=== PATIENT | male | born 1955 | race Caucasian/White ===

== ENCOUNTER 2019-12-15 14:16 | Emergency (ER) | payer BC ==
[2019-12-15] MEDS ORDERED: LIDOCAINE 1% MPF 5 ML VIAL ONE (14:39)
[2019-12-15] MEDS ORDERED: NA CHLORIDE 0.9% 1,000 ML ONE (14:39)
[2019-12-15] MEDS ORDERED: CEFAZOLIN/SWI 1gm 1 GM/10 ML SYR ONE ×2 (14:40→16:14)
[2019-12-15] MEDS ORDERED: TETANUS & DIPHTHERIA TOX,ADULT 0.5 ML VIAL ONE (14:40)
[2019-12-15 14:48] LABS: Absolute Lymphocytes (CBC) 1.7 K/uL (0.7-4.9); Basophils % 0.4 % (0-1.3); Hematocrit 41.6 % (39.6-49.0); Lymphocytes % 24.1 % (15.3-44.8); MPV 9.3 fL (7.6-11.3); RBC Red Blood Cell Count 4.66 M/uL (4.33-5.43)
--- NOTE | 2019-12-15 14:51 | RAD REPORT ---
EXAM DESCRIPTION: RAD - Hand Left 3 View - 12/15/2019 2:33 pm CLINICAL HISTORY: DEFORMITY COMPARISON: No comparisons FINDINGS: Large lacerations are seen involving the second and third fingers. Fracture involves the d istal aspect of the proximal phalanx of the third finger with subluxation at the PIP joint. Comminute d fracture involves the middle and distal phalanx of the fourth finger.
[2019-12-15] MEDS ORDERED: FENTANYL CITR 100 MCG/2 ML ONE (14:54)
[2019-12-15] MEDS ORDERED: ONDANSETRON 4 MG/2 ML VIAL ONE (14:54)
[2019-12-15 14:59] LABS: Potassium 3.5 mmol/L (3.5-5.1)
[2019-12-15] MEDS ORDERED: LIDOCAINE 1% 20 ML MDV ONE (15:30)
--- NOTE | 2019-12-15 15:36 | EDPHYS ---
Physician Documentation [facility] Name: Lynnette Elder Age: 64 yrs Sex: Male : 1955 Arrival Date: 12/15/2019 Time: 14:18 Bed 14 Private MD: ED Physician Thien Adams HPI: 12/14 14:44 This 64 yrs old Male presents to ER via Ambulatory with complaints of saw maricel injury to left hand, fingers. 14:44 The patient or guardian reports decreased range of motion, injury, a laceration, maricel irregular, complex, ragged, pain. The complaints affect the left hand diffusely. Context: The problem was sustained at home, resulted from saw injury, thumb, 3rd and forth fingers . complex, open. Onset: The symptoms/episode began/occurred just prior to arrival. Associated signs and symptoms: The patient has no apparent associated signs or symptoms. Severity of symptoms: At their worst the symptoms were moderate, in the emergency department the symptoms are unchanged. The patient has not experienced similar symptoms in the past. Historical: - Allergies: 14:26 No Known Allergies; ca1 - Home Meds: 14:26 aspirin 81 mg Oral chew 1 tab once daily [Active]; ca1 - PMHx: 14:26 Hyperlipidemia; High Cholesterol; ca1 - Immunization history:: Adult Immunizations up to date, Last tetanus immunization: up to date Flu vaccine is up to date. - Social history:: Smoking status: Patient denies any tobacco usage or history of. - Family history:: not pertinent. ROS: 14:44 Constitutional: Negative for fever, chills, and weight loss, Eyes: Negative for injury, maricel pain, redness, and discharge, ENT: Negative for injury, pain, and discharge, Neck: Negative for injury, pain, and swelling, Cardiovascular: Negative for chest pain, palpitations, and edema, Respiratory: Negative for shortness of breath, cough, wheezing, and pleuritic chest pain, Abdomen/GI: Negative for abdominal pain, nausea, vomiting, diarrhea, and constipation, Back: Negative for injury and pain, : Negative for injury, bleeding, discharge, and swelling, Skin: Negative for injury, rash, and discoloration, Neuro: Negative for headache, weakness, numbness, tingling, and seizure, Psych: Negative for depression, anxiety, suicide ideation, homicidal ideation, and hallucinations, Allergy/Immunology: Negative for hives, rash, and allergies, Endocrine: Negative for neck swelling, polydipsia, polyuria, polyphagia, and marked weight changes, Hematologic/Lymphatic: Negative for swollen nodes, abnormal bleeding, and unusual bruising. 14:44 MS/extremity: Positive for injury or acute deformity, decreased range of motion, laceration, pain, swelling, tenderness, of the dorsal aspect of distal phalanx of left thumb, dorsal aspect of middle phalanx of left middle finger, dorsal aspect of middle phalanx of left ring finger, dorsal aspect of proximal phalanx of left ring finger, palmar aspect of middle phalanx of left ring finger and palmar aspect of middle phalanx of left middle finger. Exam: 14:44 Constitutional: This is a well developed, well nourished patient who is awake, alert, maricel and in no acute distress. Head/Face: Normocephalic, atraumatic. Eyes: Pupils equal round and reactive to light, extra-ocular motions intact. Lids and lashes normal. Conjunctiva and sclera are non-icteric and not injected. Cornea within normal limits. Periorbital areas with no swelling, redness, or edema. ENT: Nares patent. No nasal discharge, no septal abnormalities noted. Tympanic membranes are normal and external auditory canals are clear. Oropharynx with no redness, swelling, or masses, exudates, or evidence of obstruction, uvula midline. Mucous membranes moist. Neck: Trachea midline, no thyromegaly or masses palpated, and no cervical lymphadenopathy. Supple, full range of motion without nuchal rigidity, or vertebral point tenderness. No Meningismus. Chest/axilla: Normal chest wall appearance and motion. Nontender with no deformity. No lesions are appreciated. Cardiovascular: Regular rate and rhythm with a normal S1 and S2. No gallops, murmurs, or rubs. Normal PMI, no JVD. No pulse deficits. Respiratory: Lungs have equal breath sounds bilaterally, clear to auscultation and percussion. No rales, rhonchi or wheezes noted. No increased work of breathing, no retractions or nasal flaring. Abdomen/GI: Soft, non-tender, with normal bowel sounds. No distension or tympany. No guarding or rebound. No evidence of tenderness throughout. Vital Signs: 14:23 BP 143 / 85; Pulse 91; Resp 16 S; Pulse Ox 95% on R/A; Weight 83.91 kg (R); Height 5 ca1 ft. 6 in. (167.64 cm) (R); Pain 8/10; 14:40 BP 149 / 85; Pulse 91; Resp 18; Temp 98.5; Pulse Ox 95% on R/A; Pain 5/10; em 15:40 BP 147 / 82; Pulse 84; Resp 18; Pulse Ox 99% on R/A; Pain 3/10; em 14:23 Body Mass Index 29.86 (83.91 kg, 167.64 cm) ca1 [place] Coma Score: 14:40 Eye Response: spontaneous(4). Verbal Response: oriented(5). Motor Response: obeys ss commands(6). Total: 15. 15:40 Eye Response: spontaneous(4). Verbal Response: oriented(5). Motor Response: obeys ss commands(6). Total: 15. Trauma Score (Adult): 14:40 Eye Response: spontaneous(1); Verbal Response: oriented(1); Motor Response: obeys ss commands(2); Systolic BP: > 89 mm Hg(4); Respiratory Rate: 10 to 29 per min(4); Jolie Score: 15; Trauma Score: 12 15:40 Eye Response: spontaneous(1); Verbal Response: oriented(1); Motor Response: obeys ss commands(2); Systolic BP: > 89 mm Hg(4); Respiratory Rate: 10 to 29 per min(4); Jolie Score: 15; Trauma Score: 12 Procedures: 16:08 Nerve block: (digital) of dorsal aspect of proximal phalanx of left thumb, dorsal maricel aspect of proximal phalanx of left middle finger, dorsal aspect of proximal phalanx of left ring finger, palmar aspect of proximal phalanx of left ring finger, palmar aspect of proximal phalanx of left middle finger and palmar aspect of proximal phalanx of left thumb Medication: Lidocaine 1% without epinephrine Marcaine 0.5%, Amount: 6 mls were injected, Effect: the patient's symptoms are improved, markedly, Set up for procedure. Performed by Thien Adams MD Patient tolerated well. MDM: 14:29 Patient medically screened. [facility] [place] 14:50 Data reviewed: vital signs, nurses notes, lab test result(s), radiologic studies, plain maricel films. 03 14:23 Order name: Basic Metabolic Panel; Complete Time: 15:15 em 12/14 14:23 Order name: CBC with Diff; Complete Time: 15:15 em 12/14 14:19 Order name: XRAY Hand LEFT 3 View; Complete Time: 15:15 em 12/14 14:23 Order name: Creatinine for Radiology; Complete Time: 15:15 em 12/14 14:23 Order name: Type And Screen em 12/14 15:46 Order name: ABO/RH no charge EDNE 12/14 14:23 Order name: Labs collected and sent; Complete Time: 15:04 em 12/14 14:43 Order name: Suture Tray at Bedside; Complete Time: 15:26 [facility] [place] 12/14 14:56 Order name: Labs - recollect needed: collect abo/rh no charge; Complete Time: 15:12 bd Administered Medications: 14:41 Drug: NS 0.9% 1000 ml Route: IV; Rate: 1 bolus; Site: right antecubital; em 16:20 Follow up: IV Status: Completed infusion; IV Intake: 1000ml em 14:41 Drug: Tetanus-Diphtheria Toxoid Adult 0.5 ml {[employer]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 Exp: em 09/12/2021. Lot #: [id number]. } Route: IM; Site: left deltoid; 15:00 Follow up: Response: No adverse reaction em 14:43 Drug: Ancef 2 grams Route: IVPB; Infused Over: 30 mins; Site: right antecubital; em 15:00 Follow up: Response: No adverse reaction; IV Status: Completed infusion; IV Intake: 20mlem 15:19 Drug: Zofran (Ondansetron) 4 mg Route: IVP; Site: right antecubital; em 15:45 Follow up: Response: No adverse reaction em 15:21 Drug: fentaNYL (PF) 50 mcg Route: IVP; Site: right antecubital; em 15:45 Follow up: Response: No adverse reaction; Marked relief of symptoms; Pain is decreased; em RASS: Alert and Calm (0) 15:29 Drug: Lidocaine (1 %) 20 ml {Note: administered by Dr. Adams.} Volume: 20 ml; Route: em Infiltration; Site: wound; 15:45 Follow up: Response: No adverse reaction; Pain is decreased em 15:29 Drug: Bupivacaine (0.5 %) 20 ml {Note: administered by Dr. Adams.} Volume: 10 ml; em Route: Infiltration; Site: wound; Disposition: 12/15/19 15:35 Transfer ordered to [facility]. Diagnosis are Displaced fracture of medial phalanx of left ring finger, Displaced fracture of distal phalanx of left ring finger, Displaced fracture of medial phalanx of left middle finger, Laceration without foreign body of left hand - thumb, volar. - Reason for transfer: Higher level of care. - Accepting physician is mary aleman. - Condition is Stable. - Problem is new. - Symptoms have improved. Signatures: Dispatcher [employer] Xochitl Blanco Corey, MD MD cha Munoz, Edgar, RN RN em Lois Rosas RN RN [facility] Corrections: (The following items were deleted from the chart) 16:42 15:35 12/15/2019 15:35 Transfer ordered to [facility]. Diagnosis is em Displaced fracture of medial phalanx of left ring finger; Displaced fracture of distal phalanx of left ring finger; Displaced fracture of medial phalanx of left middle finger; Laceration without foreign body of left hand - thumb, volar. Reason for transfer: Higher level of care. Accepting physician is mary aleman. Condition is Stable. Problem is new. Symptoms have improved. [facility] [place] 16:45 16:42 12/15/2019 15:35 Transfer ordered to [facility]. Diagnosis is em Displaced fracture of medial phalanx of left ring finger; Displaced fracture of distal phalanx of left ring finger; Displaced fracture of medial phalanx of left middle finger; Laceration without foreign body of left hand - thumb, volar. Reason for transfer: Higher level of care. Accepting physician is mary aleman. Condition is Stable. Problem is new. Symptoms have improved. em
--- NOTE | 2019-12-15 15:36 | ER ---
Nurse's Notes [facility] Name: Lynnette Lester Age: 64 yrs Sex: Male : 1955 Arrival Date: 12/15/2019 Time: 14:18 Bed 14 Private MD: Diagnosis: Displaced fracture of medial phalanx of left ring finger;Displaced fracture of distal phalanx of left ring finger;Displaced fracture of medial phalanx of left middle finger;Laceration without foreign body of left hand-thumb, volar Presentation: 12/14 14:23 Chief complaint: Patient states: Lacerations on 3 fingers of L hand, bones exposed from ca1 1-2 fingers. Lac was caused by table saw. Coronavirus screen: The patient has NOT traveled to [place] in the past 14 days. The patient has NOT had contact with known and/or suspected case of Coronavirus. Ebola Screen: Patient negative for fever greater than or equal to 101.5 degrees Fahrenheit, and additional compatible Ebola Virus Disease symptoms Patient denies exposure to infectious person. Patient denies travel to an Ebola-affected area in the 21 days before illness onset. No symptoms or risks identified at this time. Initial Sepsis Screen: Does the patient meet any 2 criteria? No. Patient's initial sepsis screen is negative. Does the patient have a suspected source of infection? No. Patient's initial sepsis screen is negative. Risk Assessment: Do you want to hurt yourself or someone else? Patient reports no desire to harm self or others. Onset of symptoms was December 15, 2019. Care prior to arrival: None. 14:23 Method Of Arrival: Ambulatory ca1 14:23 Acuity: JUVENAL 2 ca1 14:23 Mechanism of Injury: Table saw. Trauma event details: Injury occurred in the [facility], Injury occurred: at home. Injury occurred: December 15, 2019. Trauma Activation: Alert Physician: ED Physician; Name: ; Notified At: ; Arrived At: Physician: General Surgeon; Name: ; Notified At: ; Arrived At: Physician: Radiology; Name: ; Notified At: ; Arrived At: Physician: Respiratory; Name: ; Notified At: ; Arrived At: Physician: Lab; Name: ; Notified At: ; Arrived At: Historical: - Allergies: 14:26 No Known Allergies; ca1 - Home Meds: 14:26 aspirin 81 mg Oral chew 1 tab once daily [Active]; ca1 - PMHx: 14:26 Hyperlipidemia; High Cholesterol; ca1 - Immunization history:: Adult Immunizations up to date, Last tetanus immunization: up to date Flu vaccine is up to date. - Social history:: Smoking status: Patient denies any tobacco usage or history of. - Family history:: not pertinent. Screenin:25 Abuse screen: Denies threats or abuse. Nutritional screening: No deficits noted. em Tuberculosis screening: No symptoms or risk factors identified. Fall Risk None identified. Primary Survey: 14:23 NO uncontrolled hemorrhage observed. A: The patient is alert. Airway: patent, No ss supplemental oxygen in use on arrival. Oral cavity: clear, Trachea midline. Breathing/Chest: Respiratory pattern: regular, Respiratory effort: spontaneous, unlabored, Breath sounds: clear, bilaterally. Chest inspection: symmetrical rise and fall of the chest. Circulation: Pulses: palpable right radial artery, right posterior tibial artery, left radial artery and left posterior tibial artery. Skin color: pink, Skin temperature: warm. Disability Alert. Exposure/Environment: All clothing and personal items were removed. Forensic evidence collection is not deemed to be indicated at this time. Items placed in patient belonging bag. There is no evidence of uncontrolled external bleeding. Obvious injury(ies) are noted at this time: lacerations noted to fingers of R hand. 15:00 Reassessment Airway Airway Patent Oxygen No O2 Oral cavity Clear Trachea Midline ss Breathing/Chest Respiratory pattern Regular Respiratory effort Spontaneous Unlabored Breath sounds Clear Chest inspection Symmetrical Circulation Pulses Palpable Color [place] Temperature Warm Disability Alert. Secondary Survey: 14:23 HEENT: No deficits noted. Head No injury/deformity Face No injury/deformity Eyes: No ss injury or deformity noted. Ears: clear bilaterally. Nose: clear Throat: is clear. Gastrointestinal: No deficits noted. : No deficits noted. Assessment: 14:23 General: Appears uncomfortable, Behavior is calm, cooperative, Denies feeling ill. ss Pain: Complains of pain in palmar aspect of proximal phalanx of left thumb and palmar aspect of proximal phalanx of left middle finger and palmar aspect of proximal phalanx of left ring finger and dorsal aspect of proximal phalanx of left middle finger and dorsal aspect of proximal phalanx of left thumb and palmar aspect of middle phalanx of left ring finger and dorsal aspect of proximal phalanx of left ring finger and dorsal aspect of middle phalanx of left ring finger and dorsal aspect of middle phalanx of left middle finger and dorsal aspect of distal phalanx of left thumb Pain currently is 8 out of 10 on a pain scale. Quality of pain is described as tender, throbbing, Pain began suddenly, Is continuous. Neuro: Level of Consciousness is awake, alert, obeys commands, Oriented to person, place, time, situation. EENT: Oral mucosa is moist. Respiratory: Airway is patent Respiratory effort is even, unlabored, Respiratory pattern is regular, symmetrical, Denies cough, shortness of breath. : No signs and/or symptoms were reported regarding the genitourinary system. Derm: Skin is intact, is healthy with good turgor, Skin is dry, Skin is pink, warm \T\ dry. normal. Injury Description: Deformity sustained to dorsal aspect of middle phalanx of left middle finger, dorsal aspect of middle phalanx of left ring finger and palmar aspect of distal phalanx of left thumb is with bone exposed, was sustained less than 30 minutes ago. 14:25 General: Appears in no apparent distress. uncomfortable, Behavior is calm, cooperative. em Pain: Complains of pain in dorsal aspect of distal phalanx of left thumb, dorsal aspect of proximal phalanx of left thumb, dorsal aspect of middle phalanx of left middle finger and dorsal aspect of middle phalanx of left ring finger Pain currently is 8 out of 10 on a pain scale. Pain began suddenly. Neuro: Level of Consciousness is awake, alert, obeys commands, Oriented to person, place, time, situation, Appropriate for age. Cardiovascular: Capillary refill < 3 seconds Patient's skin is warm and dry. Respiratory: Airway is patent Respiratory effort is even, unlabored, Respiratory pattern is regular, symmetrical. GI: Patient currently denies nausea. Derm: Skin is intact, is healthy with good turgor, Skin is pink, warm \T\ dry. Musculoskeletal: Swelling present in left hand. Injury Description: Deformity sustained to dorsal aspect of middle phalanx of left middle finger, dorsal aspect of proximal phalanx of left middle finger, dorsal aspect of middle phalanx of left ring finger and dorsal aspect of proximal phalanx of left ring finger is with bone exposed, was sustained less than 30 minutes ago. 15:30 Reassessment: Patient appears in no apparent distress at this time. Patient and/or em family updated on plan of care and expected duration. Pain level reassessed. Patient is alert, oriented x 3, equal unlabored respirations, skin warm/dry/pink. rates pain 3/10 Patient states feeling better. 15:52 Reassessment: report given to ROAS Hinson at [facility], pending EMS transportation. em 16:24 Reassessment: Patient appears in no apparent distress at this time. Patient and/or em family updated on plan of care and expected duration. Pain level reassessed. Patient is alert, oriented x 3, equal unlabored respirations, skin warm/dry/pink. report given to EMS. Vital Signs: 14:23 BP 143 / 85; Pulse 91; Resp 16 S; Pulse Ox 95% on R/A; Weight 83.91 kg (R); Height 5 ca1 ft. 6 in. (167.64 cm) (R); Pain 8/10; 14:40 BP 149 / 85; Pulse 91; Resp 18; Temp 98.5; Pulse Ox 95% on R/A; Pain 5/10; em 15:40 BP 147 / 82; Pulse 84; Resp 18; Pulse Ox 99% on R/A; Pain 3/10; em 14:23 Body Mass Index 29.86 (83.91 kg, 167.64 cm) ca1 Jolie Coma Score: 14:40 Eye Response: spontaneous(4). Verbal Response: oriented(5). Motor Response: obeys ss commands(6). Total: 15. 15:40 Eye Response: spontaneous(4). Verbal Response: oriented(5). Motor Response: obeys ss commands(6). Total: 15. Trauma Score (Adult): 14:40 Eye Response: spontaneous(1); Verbal Response: oriented(1); Motor Response: obeys ss commands(2); Systolic BP: > 89 mm Hg(4); Respiratory Rate: 10 to 29 per min(4); Cecil Score: 15; Trauma Score: 12 15:40 Eye Response: spontaneous(1); Verbal Response: oriented(1); Motor Response: obeys ss commands(2); Systolic BP: > 89 mm Hg(4); Respiratory Rate: 10 to 29 per min(4); Cecil Score: 15; Trauma Score: 12 ED Course: 14:18 Patient arrived in ED. em 14:22 Thien Adams MD is Attending Physician. ss 14:23 Roby Martinez, RN is Primary Nurse. em 14:25 Patient has correct armband on for positive identification. Placed in gown. Bed in low em position. Call light in reach. Side rails up X2. Adult w/ patient. Pulse ox on. NIBP on. 14:25 Patient maintains SpO2 saturation greater than 95% on room air. em 14:25 Thermoregulation: warm blanket given to patient. em 14:26 Triage completed. ca1 14:26 Arm band placed on right wrist. Affected limb elevated. ca1 14:27 Inserted saline lock: 20 gauge in right antecubital area, using aseptic technique. ca1 Blood collected. 14:36 XRAY Hand LEFT 3 View In Process Unspecified. EDMS 16:25 No provider procedures requiring assistance completed. Patient transferred, IV remains ss in place. 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 Exp: em 09/12/2021. Lot #: [id number]. } Route: IM; Site: left deltoid; 15:00 Follow up: Response: No adverse reaction em 14:43 Drug: Ancef 2 grams Route: IVPB; Infused Over: 30 mins; Site: right antecubital; em 15:00 Follow up: Response: No adverse reaction; IV Status: Completed infusion; IV Intake: 20mlem 15:19 Drug: Zofran (Ondansetron) 4 mg Route: IVP; Site: right antecubital; em 15:45 Follow up: Response: No adverse reaction em 15:21 Drug: fentaNYL (PF) 50 mcg Route: IVP; Site: right antecubital; em 15:45 Follow up: Response: No adverse reaction; Marked relief of symptoms; Pain is decreased; em RASS: Alert and Calm (0) 15:29 Drug: Lidocaine (1 %) 20 ml {Note: administered by Dr. Adams.} Volume: 20 ml; Route: em Infiltration; Site: wound; 15:45 Follow up: Response: No adverse reaction; Pain is decreased em 15:29 Drug: Bupivacaine (0.5 %) 20 ml {Note: administered by Dr. Adams.} Volume: 10 ml; em Route: Infiltration; Site: wound; Intake: 15:00 IV: 20ml; Total: 20ml. em 16:20 IV: 1000ml; Total: 1020ml. em Output: 16:20 Urine: 200ml (Voided); Total: 200ml. em Outcome: 15:35 ER care complete, transfer ordered by . maricel 16:39 Transferred by ground EMS to [facility], Transfer form completed. X-rays sent em w/ patient. 16:39 Condition: good 16:39 Instructed on the need for transfer, Demonstrated understanding of instructions. 16:41 Patient's length of stay in the Emergency Department was greater than 2 hours. transfer em Patient's length of stay extended due to 16:45 Patient left the ED. em Signatures: Dispatcher [employer] Thien Lopez MD MD cha Munoz, Edgar, RN RN Adela Bland RN RN Lois Rosas RN RN ca1 Corrections: (The following items were deleted from the chart) 14:27 14:23 Chief complaint: Patient states: Lacerations on 3 fingers, bones exposed from 1-2 ca1 fingers. Lac was caused by table saw. ca1
[2019-12-15 17:15] VITALS: TEMP 98.5
[2019-12-15 17:17] VITALS: BP 147/82; O2SAT 99
== END 2019-12-15 16:45 | disposition short-term general hospital (02) ==
LOC: ER 14:16
DX: S62.625A Displaced fracture of middle phalanx of left ring finger, initial encounter for closed fracture (principal); S62.623A Displaced fracture of middle phalanx of left middle finger, initial encounter for closed fracture; S62.635A Displaced fracture of distal phalanx of left ring finger, initial encounter for closed fracture; S61.012A Laceration without foreign body of left thumb without damage to nail, initial encounter; W29.8XXA Contact with other powered hand tools and household machinery, initial encounter; Y93.89 Activity, other specified; Y92.009 Unspecified place in unspecified non-institutional (private) residence as the place of occurrence of the external cause; Z23 Encounter for immunization
CPT/HCPCS: 96365; 96361; 85025; 80048; 36415; 86900; 86850; 86901; 73130; 90471; 90714; 64450; 96375; 99285; J3010; J0690 ×2; J7030; J2405

== ENCOUNTER 2021-07-28 22:10 | Inpatient (IN) | payer OTHER, BC ==
[2021-07-29] MEDS ORDERED: HYDROCODONE/APAP 10/325 TAB ONE ×2 (00:07→01:13)
[2021-07-29] MEDS ORDERED: LIDOCAINE JELLY 2%- 5 ML TUBE ONE (00:07)
[2021-07-29] MEDS ORDERED: PIPERACIL/TAZO 3.375 GM VIAL IV ONE (01:12)
[2021-07-29] MEDS ORDERED: NA CHLORIDE 0.9% 250 ML ONE (01:13)
[2021-07-29 01:30] LABS: Protime INR 1.06
[2021-07-29 01:32] LABS: Absolute Lymphocytes (CBC) 0.6 K/uL (0.7-4.9); Basophils % 0.6 % (0-1.3); Hematocrit 32.5 % (39.6-49.0); MPV 8.9 fL (7.6-11.3); RBC Red Blood Cell Count 3.57 M/uL (4.33-5.43)
[2021-07-29 01:41] LABS: Urine Blood Trace-intact (Negative); Urine Glucose 2+ (Negative); Urine Protein Negative (Negative); Urine Specific Gravity >=1.030 (1.005-1.030); Urine pH 5.5 (5.0-7.0)
[2021-07-29 01:49] LABS: Urine Blood Negative (Negative); Urine Glucose 2+ (Negative); Urine Protein Negative (Negative); Urine Specific Gravity >=1.030 (1.005-1.030); Urine pH 5.5 (5.0-7.0)
[2021-07-29 01:55] LABS: Urine Bacteria <20 /HPF (NONE SEEN); Urine Mucus 2+ /HPF (NONE SEEN); Urine RBC NONE SEEN /HPF (NONE SEEN)
[2021-07-29 02:02] LABS: Blood Morphology Comment NOTED (NOT SEEN); Platelet Estimate DECR
[2021-07-29 02:03] LABS: Anisocytosis 1+
--- NOTE | 2021-07-29 02:38 | EDPHYS ---
Physician Documentation [facility] Name: Lynnette Elder Age: 66 yrs Sex: Male : 1955 Arrival Date: 07/28/2021 Time: 22:16 Bed 13 Private MD: ED Physician Pako Warren HPI: 07/28 23:10 This 66 yrs old Male presents to ER via Ambulatory with complaints of Rectal cp Abscess. 23:10 The patient presents to the emergency department with bleeding from the rectum/anus, cp pain in the rectal area, that is severe. 23:10 Onset: The symptoms/episode began/occurred 2 day(s) ago. cp 23:10 Associate signs and symptoms: Pertinent positives: lower GI bleeding, bright red, cp Pertinent negatives: abdominal pain, constipation, diarrhea, fever, vomiting. Historical: - Allergies: 22:39 No Known Allergies; sj1 - PMHx: 22:39 High Cholesterol; Hyperlipidemia; sj1 - Immunization history:: Adult Immunizations up to date, Client reports receiving the 2nd dose of the Covid vaccine, Client reports receiving the 1st dose of the Covid vaccine. - Social history:: Smoking status: Patient denies any tobacco usage or history of. Patient/guardian denies using street drugs. ROS: 23:15 Constitutional: Negative for body aches, chills, fever, poor PO intake. cp 23:15 Eyes: Negative for injury, pain, redness, and discharge. cp 23:15 ENT: Negative for ear pain, sore throat, difficulty swallowing, difficulty handling secretions. 23:15 Cardiovascular: Negative for chest pain, edema, palpitations. 23:15 Respiratory: Negative for cough, shortness of breath, wheezing. 23:15 Abdomen/GI: Positive for rectal pain, rectal bleeding, Negative for abdominal pain, nausea, vomiting, and diarrhea, black/tarry stool. 23:15 Back: Negative for pain at rest, pain with movement. 23:15 : Negative for urinary symptoms. 23:15 Neuro: Negative for altered mental status, dizziness, headache, weakness. 23:15 All other systems are negative. Exam: 23:20 Constitutional: The patient appears in no acute distress, alert, awake, cp non-diaphoretic, non-toxic, well developed, well nourished, uncomfortable. 23:20 Head/Face: Normocephalic, atraumatic. cp 23:20 Chest/axilla: Inspection: normal. 23:20 Cardiovascular: Rate: normal, Rhythm: regular, Edema: is not appreciated, JVD: is not appreciated. 23:20 Respiratory: the patient does not display signs of respiratory distress, Respirations: normal, no use of accessory muscles, no retractions, labored breathing, is not present, Breath sounds: are clear throughout, no decreased breath sounds, no stridor, no wheezing. 23:20 Abdomen/GI: Inspection: abdomen appears normal, Palpation: abdomen is soft and non-tender, in all quadrants, Rectal exam: swelling, that is mild, tenderness, that is severe, bloody drainage noted from outer rim of rectum at 3 o'clock. 23:20 Back: pain, is absent, ROM is normal. 23:20 : Rectal exam: 23:20 Neuro: Orientation: to person, place \T\ time. Mentation: is normal, Motor: moves all fours, strength is normal, Sensation: is normal. Vital Signs: 22:35 BP 175 / 95; Pulse 86; Resp 18 S; Temp 99.5; Pulse Ox 99% on R/A; Weight 85.28 kg (R); sj1 Height 5 ft. 6 in. (167.64 cm) (R); Pain 9/10; 22:35 Body Mass Index 30.34 (85.28 kg, 167.64 cm) sj1 MDM: 22:50 Patient medically screened. 07/29 00:00 Differential diagnosis: hemorrhoids, fissure, abscess, pilonidal cyst. cp 02:35 Data reviewed: vital signs, nurses notes, lab test result(s), radiologic studies, CT scan. 02:35 Physician consultation: Murtaza Romero MD was called at 02:35, was contacted at 02:35, regarding consult, patient's condition, would like admission per Dr. Les Maciel DO. 07/28 23:57 Order name: Basic Metabolic Panel 07/28 23:57 Order name: CBC with Diff; Complete Time: 02:25 07/29 01:42 Interpretation: Normal except: RBC 3.57; HGB 11.2; HCT 32.5; PLT 96; RDW 16.4; MERT% cp 84.3; LYM% 7.0; LYMA 0.6. 07/28 23:57 Order name: Hepatic Function cp 07/28 23:57 Order name: Lipase cp 07/29 00:17 Order name: Procalcitonin; Complete Time: 02:25 cp 07/29 00:17 Order name: Lactate; Complete Time: 01:41 cp 07/29 01:42 Interpretation: Within normal limits: LAC 0.9. cp 07/29 00:17 Order name: Blood Culture Adult (2) cp 07/29 00:17 Order name: PT-INR; Complete Time: 01:41 cp 07/29 00:17 Order name: Ptt, Activated; Complete Time: 01:41 cp 07/29 00:18 Order name: Urine Microscopic Only; Complete Time: 02:25 cp 07/29 00:18 Order name: Urine Culture cp 07/29 01:37 Order name: Manual Differential; Complete Time: 02:25 EDMS 07/29 01:40 Order name: Urine Dipstick-Ancillary; Complete Time: 01:41 EDMS 07/29 01:41 Interpretation: Normal except: UGLUC 2+; UBLD Trace-intact. cp 07/29 01:49 Order name: Urine Dipstick-Ancillary; Complete Time: 02:25 EDMS 07/28 23:57 Order name: IV Saline Lock; Complete Time: 03:12 cp 07/28 23:57 Order name: Labs collected and sent; Complete Time: 03:12 cp 07/29 00:04 Order name: CT Pelvis w cont cp 07/29 00:18 Order name: Urine Dipstick-Ancillary (obtain specimen); Complete Time: 03:12 cp 07/29 02:35 Order name: CREATININE WHOLE BLOOD EDMS 07/29 03:25 Order name: SARS-COV-2 RT PCR EDMS Administered Medications: 07/28 23:44 Drug: Lidocaine Gel 2 % 1 application Route: Mucous Membrane; mr2 23:44 Drug: HYDROcodone-acetaminophen 10 mg-325 mg 1 tabs Route: PO; mr2 07/29 05:05 Follow up: Response: No adverse reaction wg 01:16 Drug: Zosyn (piperacillin-tazobactam) 3.375 grams Route: IVPB; Infused Over: 60 mins; mr2 Site: left antecubital; 02:30 Drug: HYDROcodone-acetaminophen 10 mg-325 mg 1 tabs Route: PO; wg 03:30 Follow up: Response: No adverse reaction Disposition: 00:[address] Warren, exam consistent with perirectal abscess. Waiting on bloodwork rn and CT to confirm and to check blood counts, although anticipate ok given last chemo 3 weeks ago and do not anticipate neutropenia.. 05:05 Co-signature as Attending Physician, Pako Warren MD I agree with the assessment and rn plan of care. 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 HPI: 66-year-old male presents with rectal pain. Reports noticed swelling near the anus that is very painful and just prior to my evaluation states feels like it popped and is leaking. My personal exam of patient reveals: Patient with perianal/rectal swelling and focal tenderness with erythema and fluctuance that extends partially to crevice of buttocks. I agree with assessment and care plan and confirm the diagnosis (es) above. Disposition Summary: 07/29/21 02:37 Hospitalization Ordered Hospitalization Status: Inpatient Admission cp Provider: Les Maciel cp Condition: Stable cp Problem: new cp Symptoms: have improved cp Bed/Room Type: Standard cp Location: [facility] ER HOLD(07/29/21 03:40) cg Room Assignment: ERHOLD-(07/29/21 03:40) cg Diagnosis - Rectal abscess cp Forms: - Medication Reconciliation Form cp - SBAR form cp Signatures: Dispatcher [employer] EDPako Allen MD MD rn Attema, Lee, DOMO-C KING MAKER-Cla1 Thien Kumar PA PA cp Thuy Huff RN RN cg Flavio Donovan RN wg Reynard, Mike, RN RN mr2 Alee Guillory RN RN sj1 Corrections: (The following items were deleted from the chart) 03:25 03:02 CORONAVIRUS+MR.LAB.BRZ ordered. EDTX EDMS 03:40 02:37 Telemetry/MedSurg (Inpatient) cp cg 03:40 02:37 cp cg
--- NOTE | 2021-07-29 02:38 | ER ---
Nurse's Notes [facility] Name: Lynnette Lester Age: 66 yrs Sex: Male : 1955 Arrival Date: 07/28/2021 Time: 22:16 Bed 13 Private MD: Diagnosis: Rectal abscess Presentation: 07/28 22:35 Chief complaint: Patient states: rectal abscess x 2 days, PCP prescribed clindamycin. sj1 Coronavirus screen: Vaccine status:. Coronavirus screen: Vaccine status: Patient reports receiving the 2nd dose of the covid vaccine. Patient reports receiving the 1st dose of the Covid vaccine. Ebola Screen: Patient negative for fever greater than or equal to 101.5 degrees Fahrenheit, and additional compatible Ebola Virus Disease symptoms Patient denies exposure to infectious person. Patient denies travel to an Ebola-affected area in the 21 days before illness onset. No symptoms or risks identified at this time. Initial Sepsis Screen: Does the patient meet any 2 criteria? No. Patient's initial sepsis screen is negative. Does the patient have a suspected source of infection? No. Patient's initial sepsis screen is negative. Risk Assessment: Do you want to hurt yourself or someone else? Patient reports no desire to harm self or others. Onset of symptoms was July 26, 2021. 22:35 Method Of Arrival: Ambulatory [facility] 22:35 Acuity: JUVENAL 3 sj1 Triage Assessment: 22:39 General: Appears uncomfortable, Behavior is calm, cooperative, appropriate for age. sj1 Pain: Complains of pain in RECTUM. EENT: No signs and/or symptoms were reported regarding the EENT system. Neuro: No deficits noted. Cardiovascular: No deficits noted. Respiratory: No deficits noted. GI: Reports nausea. : No deficits noted. Derm: Abscess located on RECTUM. Musculoskeletal: No deficits noted. Historical: - Allergies: 22:39 No Known Allergies; sj1 - PMHx: 22:39 High Cholesterol; Hyperlipidemia; sj1 - Immunization history:: Adult Immunizations up to date, Client reports receiving the 2nd dose of the Covid vaccine, Client reports receiving the 1st dose of the Covid vaccine. - Social history:: Smoking status: Patient denies any tobacco usage or history of. Patient/guardian denies using street drugs. Screenin:42 Abuse screen: Denies threats or abuse. Denies injuries from another. Nutritional sj1 screening: No deficits noted. Tuberculosis screening: No symptoms or risk factors identified. Fall Risk None identified. Assessment: 07/29 03:00 General: Appears in no apparent distress. comfortable, Behavior is calm, cooperative. mr2 Pain:. 03:01 GI: Rectal exam: Hemorrhoids noted. mr2 Vital Signs: 07/28 22:35 BP 175 / 95; Pulse 86; Resp 18 S; Temp 99.5; Pulse Ox 99% on R/A; Weight 85.28 kg (R); sj1 Height 5 ft. 6 in. (167.64 cm) (R); Pain 9/10; 22:35 Body Mass Index 30.34 (85.28 kg, 167.64 cm) sj1 ED Course: 22:16 Patient arrived in ED. 22:39 Triage completed. sj1 22:39 Arm band placed on left wrist. sj1 22:42 Patient has correct armband on for positive identification. sj1 22:43 Thien Kumar PA is PHCP. cp 22:43 Pako Warren MD is Attending Physician. cp 22:48 Curtis Rodriguez, ROSA is Primary Nurse. mr2 07/29 01:22 CT Pelvis w cont In Process Unspecified. EDMS 02:36 Les Maciel DO is Hospitalizing Provider. cp Administered Medications: 07/28 23:44 Drug: Lidocaine Gel 2 % 1 application Route: Mucous Membrane; mr2 23:44 Drug: HYDROcodone-acetaminophen 10 mg-325 mg 1 tabs Route: PO; mr2 07/29 05:05 Follow up: Response: No adverse reaction 01:16 Drug: Zosyn (piperacillin-tazobactam) 3.375 grams Route: IVPB; Infused Over: 60 mins; mr2 Site: left antecubital; 02:30 Drug: HYDROcodone-acetaminophen 10 mg-325 mg 1 tabs Route: PO; 03:30 Follow up: Response: No adverse reaction Outcome: 02:37 Decision to Hospitalize by Provider. cp 10:10 Patient left the ED. oh Signatures: Dispatcher [employer] EDMS Thien Kumar PA PA cp Shanthi Linder Flavio Donovan RN Curtis Rodriguez RN RN mr2 Alee Guillory RN RN sj1 Rito Stallings RN RN oh Corrections: (The following items were deleted from the chart) 03:25 03:12 CORONAVIRUS+ drawn and sent. TERRENCE
[2021-07-29 03:19] LABS: ALT/SGPT 28 U/L (12-78); AST/SGOT 7 U/L (15-37); Albumin 3.5 g/dL (3.4-5.0); Alkaline Phosphatase 74 U/L (45-117); BUN Blood Urea Nitrogen 9 mg/dL (7-18); Bicarbonate 25 mmol/L (21-32); Bilirubin Direct < 0.1 mg/dL (0-0.2); Bilirubin Total 0.3 mg/dL (0.2-1.0); Glucose Level 182 mg/dL (74-106); Lipase 101 U/L (73-393); Potassium 3.7 mmol/L (3.5-5.1); Protein, Total 7.1 g/dL (6.4-8.2); Sodium Level 139 mmol/L (136-145)
--- NOTE | 2021-07-29 03:42 | P.HP ---
Certification for Inpatient Patient admitted to: Inpatient With expected LOS: >2 Midnights Patient will require the following post-hospital care: None Practitioner: I am a practitioner with admitting privileges, knowledge of patient current condition, hospital course, and medical plan of care. Services: Services provided to patient in accordance with Admission requirements found in Title 42 Section 412.3 of the Code of Federal Regulations Patient History Date of Service: 07/29/21 Primary Care Provider: Dr. Grimes Reason for admission: Perirectal abscess History of Present Illness: 66-year-old male with history of follicular lymphoma on chemotherapy, hypertension, gout, BPH, hyperlipidemia presents emergency department for presumed rectal abscess. Patient reports that 3 days ago he noticed he was having some rectal pain was seen by his primary care doctor Dr. Grimes who prescribed him clindamycin, this evening had increasing pain. Patient noted to have what appears to be a small perirectal abscess which spontaneously drained some purulent drainage while he was there in the emergency department. Labs were significant for hemoglobin 11.2 hematocrit 32.5 platelets ninety-[address] did not demonstrate significant peritoneal abscess, case was discussed with general surgery, patient to be admitted for further evaluation and management of suspected perirectal abscess. - Past Medical/Surgical History -: Follicular lymphoma -: Hypertension -: Hyperlipidemia -: Gout -: BPH -: Left hand surgery Psychosocial/ Personal History: Lives at home with family - Family History Family History: Reviewed- Non-Contributory - Social History Smoking Status: Never smoker Alcohol use: No CD- Drugs: No Caffeine use: Yes Place of Residence: Home Review of Systems 10-point ROS is otherwise unremarkable Gastrointestinal: Other (Rectal pain), As per HPI Physical Examination - Physical Exam General: Alert, In no apparent distress, Oriented x3 HEENT: Atraumatic, PERRLA, Mucous membr. moist/pink, EOMI, Sclerae nonicteric Neck: Supple, 2+ carotid pulse no bruit, No LAD, Without JVD or thyroid abnormality Respiratory: Clear to auscultation bilaterally, Normal air movement Cardiovascular: Regular rate/rhythm, Normal S1 S2 Gastrointestinal: Normal bowel sounds, Other (Small peritoneal abscess noted wit h fluctuance and purulent drainage), Tenderness, Masses, Rebound Musculoskeletal: No tenderness Integumentary: No rashes Neurological: Normal speech, Normal strength at 5/5 x4 extr, Normal tone, Normal affect - Studies Laboratory Data (last 24 hrs) 10/15/21 00:30: PT 12.2, INR 1.06, APTT 31.3 07/29/21 00:30: WBC 8.00, Hgb 11.2 L, Hct 32.5 L, Plt Count 96 L 07/29/21 00:30: Sodium 139, Potassium 3.7, BUN 9, Creatinine 0.83, Glucose 182 H, Total Bilirubin 0.3, AST 7 L, ALT 28, Alkaline Phosphatase 74, Lipase 101 Assessment and Plan - Plan Assessment: Perirectal abscess Follicular lymphoma Hypertension hyperlipidemia Gout CHRISTOPHER Plan: Perirectal abscess: N.p.o., IV Zosyn, as needed pain medications, general surgery consult in place, case was discussed with surgery by emergency department provider. Appreciate further input from general surgery. Follicular lymphoma: Stable, patient on IV chemotherapy every 21 days, last chemotherapy was in June. Hypertension: Obtain and continue medications, patient n.p.o. at this time will provide medication on a as needed basis. hyperlipidemia:Obtain and continue medications, patient n.p.o. at this time Gout:Obtain and continue medications, patient n.p.o. at this time CHRISTOPHER: Provide with CPAP for sleep. DVT PPX: SCD Code status: Full Discharge Plan: Home Plan to discharge in: 48 Hours - Advance Directives Does patient have a Living Will: No Does patient have a Durable POA for Healthcare: No - Code Status/Comfort Care Code Status Assessed: Yes (Full code) Critical Care: No Time Spent Managing Pts Care (In Minutes): 55
[2021-07-29] MEDS ORDERED: ONDANSETRON 4 MG/2 ML VIAL IV PRN (04:46)
[2021-07-29] MEDS ORDERED: NA CHLORIDE 0.9% 1,000 ML IV SCH (04:46)
[2021-07-29] MEDS ORDERED: MORPHINE 2 MG/ML SYR IV PRN (04:46)
[2021-07-29 05:40] VITALS: BMI 30.7
--- NOTE | 2021-07-29 06:20 | P.PN ---
Subjective Date of Service: 07/29/21 Primary Care Provider: Dr. Grimes Chief Complaint: Perirectal abscess Subjective: Improving, Doing well Physical Examination - Studies Laboratory Data (last 24 hrs) 07/29/21 00:30: PT 12.2, INR 1.06, APTT 31.3 07/29/21 00:30: WBC 8.00, Hgb 11.2 L, Hct 32.5 L, Plt Count 96 L 07/29/21 00:30: Sodium 139, Potassium 3.7, BUN 9, Creatinine 0.83, Glucose 182 H, Total Bilirubin 0.3, AST 7 L, ALT 28, Alkaline Phosphatase 74, Lipase 101 Assessment & Plan Discharge Plan: Home Plan to discharge in: 24 Hours Physician Review Additional Text: COVID: Negative Physical exam: General: Alert, In no apparent distress, Oriented x3 HEENT: Atraumatic, PERRLA, Mucous membr. moist/pink, EOMI, Sclerae nonicteric Neck: Supple, 2+ carotid pulse no bruit, No LAD, Without JVD or thyroid abnor mality Respiratory: Clear to auscultation bilaterally, Normal air movement Cardiovascular: Regular rate/rhythm, Normal S1 S2 Gastrointestinal: Normal bowel sounds, Other no significant abscess noted. Drainage noted to the perineum. No significant erythema. Musculoskeletal: No tenderness Integumentary: No rashes Neurological: Normal speech, Normal strength at 5/5 x4 extr, Normal tone, Normal affect Impression: Perirectal abscess Follicular lymphoma Hypertension hyperlipidemia Gout CHRISTOPHER Plan: Perirectal abscess: Patient doing well. Spoke with surgery at length. No intervention required. Patient may continue with sits baths at home. Patient will go home with Cipro Flagyl for 5 days. Recommend follow-up with surgery ea rly next week to follow-up his hospitalization. Follicular lymphoma: Stable, patient on IV chemotherapy every 21 days, last chemotherapy was in June. Hypertension: Resume home medication Hyperlipidemia: Resume home medication Gout: Resume home medication CHRISTOPHER: Provide with CPAP for sleep. DVT PPX: SCD Code status: Full Discharge Plan: Home Time Spent Managing Pts Care (In Minutes): 55
[2021-07-29] MEDS ORDERED: INFLUENZA VACCINE (for 6+ mo) 0.5 ML DOSE IMVAC ONE (08:00)
--- NOTE | 2021-07-29 08:08 | P.DS ---
Admission Date: 07/29/21 Discharge Date: 07/29/21 Primary Care Provider: Dr. Grimes Disposition: ROUTINE DISCHARGE Discharge Condition: GOOD Reason for Admission: Perirectal abscess Consultations: Surgery-Dr. Romero Procedures: COVID: Negative Medical Problem List: Small Perirectal abscess Follicular lymphoma Hypertension hyperlipidemia Gout CHRISTOPHER Brief History of Present Illness: 66-year-old male with history of follicular lymphoma on chemotherapy, hypertension, gout, BPH, hyperlipidemia presents emergency department for rectal pain. Patient had reported pain over the past 3 days. PCP had prescribed clindamycin. CT scan revealed peritoneal abscess. Patient admitted for further evaluation and treatment. Surgery consulted. Hospital Course: Patient presented with small perirectal abscess. Patient was admitted for evaluation and treatment. Significant improvement noted without intervention. Patient was seen and evaluated by surgery. No surgical intervention was required. Surgery recommends patient to be discharged home. Patient may continue with sits baths daily. Patient will continue with Cipro 500 mg 1 pill twice daily and Flagyl 500 mg 3 times a day for 5 days. Patient may apply Bactroban ointment to the area daily. Patient may use a stool softener daily. Recommend follow-up with surgery within 1 week to follow-up hospitalization and continue his care. Patient with history of follicular lymphoma. Patient will continue with oncology. Patient gets chemotherapy every 21 days. Patient with history of hypertension. At discharge patient may continue with his medication. Recommend to maintain blood pressure less than 130/80. Further adjustment can be done by his PCP. Patient with history of hyperlipidemia. At discharge patient will continue with his medication. Patient with history of gout. At discharge patient may continue with his medication. Patient with obstructive sleep apnea. At discharge patient may continue with CPAP at night. General: Alert, In no apparent distress, Oriented x3, Cooperative HEENT: Atraumatic Neck: Supple Respiratory: Normal air movement Cardiovascular: Normal pulses, Regular rate/rhythm Gastrointestinal: Normal bowel sounds Integumentary: Other (No significant erythema to the perirectal region. Drainage noted. No significant abscess noted. No induration noted.) Neurological: Normal speech, Normal strength at 5/5 x4 extr, Normal tone Rectal: Other (As above) Laboratory Data at Discharge: WBC 8.00 K/uL (4.3-10.9) 07/29/21 00:30 Hgb 11.2 g/dL (13.6-17.9) L 07/29/21 00:30 Hct 32.5 % (39.6-49.0) L 07/29/21 00:30 Plt Count 96 K/uL (152-406) L 07/29/21 00:30 PT 12.2 SECONDS (9.5-12.5) 07/29/21 00:30 INR 1.06 07/29/21 00:30 APTT 31.3 SECONDS (24.3-36.9) 07/29/21 00:30 Sodium 139 mmol/L (136-145) 07/29/21 00:30 Potassium 3.7 mmol/L (3.5-5.1) 07/29/21 00:30 BUN 9 mg/dL (7-18) 07/29/21 00:30 Creatinine 0.83 mg/dL (0.55-1.3) 07/29/21 00:30 Glucose 182 mg/dL (74-106) H 07/29/21 00:30 Total Bilirubin 0.3 mg/dL (0.2-1.0) 07/29/21 00:30 AST 7 U/L (15-37) L 07/29/21 00:30 ALT 28 U/L (12-78) 07/29/21 00:30 Alkaline Phosphatase 74 U/L (45-117) 07/29/21 00:30 Lipase 101 U/L (73-393) 07/29/21 00:30 Home Medications: Ciprofloxacin HCl [Cipro 500 MG Tablet] 500 mg PO BID #10 tab 07/29/21 Mupirocin Oint [Bactroban 2% Ointment] 8 appl TOP DAILY #1 tube 07/29/21 metroNIDAZOLE [Flagyl] 500 mg PO Q8H #15 tablet 07/29/21 New Medications: Mupirocin Oint [Bactroban 2% Ointment] 8 appl TOP DAILY #1 tube Ciprofloxacin HCl [Cipro 500 MG Tablet] 500 mg PO BID #10 tab metroNIDAZOLE [Flagyl] 500 mg PO Q8H #15 tablet Physician Discharge Instructions: Patient presented with small perirectal abscess. Patient was admitted for evaluation and treatment. Significant improvement noted without intervention. Patient was seen and evaluated by surgery. No surgical intervention was required. Surgery recommends patient to be discharged home. Patient may continue with sits baths daily. Patient will continue with Cipro 500 mg 1 pill twice daily and Flagyl 500 mg 3 times a day for 5 days. Patient may apply Bactroban ointment to the area daily. Patient may use a stool softener daily. Recommend follow-up with surgery within 1 week to follow-up hospitalization and continue his care. Patient with history of follicular lymphoma. Patient will continue with oncology. Patient gets chemotherapy every 21 days. Patient with history of hypertension. At discharge patient may continue with his medication. Recommend to maintain blood pressure less than 130/80. Further adjustment can be done by his PCP. Patient with history of hyperlipidemia. At discharge patient will continue with his medication. Patient with history of gout. At discharge patient may continue with his medication. Patient with obstructive sleep apnea. At discharge patient may continue with CPAP at night. Diet: AHA Activity: Ad bear Followup: NONE,NONE [Primary Care Provider] - Time spent managing pt's care (in minutes): 55
[2021-07-29 08:26] VITALS: BP 143/80; TEMP 97.9
[2021-07-29] MEDS ORDERED: PIPER TAZO 3.375 GM in NA CHLORIDE 0.9% 100 ML IV SCH (09:00)
[2021-07-29 10:24] VITALS: O2SAT 99
--- NOTE | 2021-07-29 13:14 | RAD REPORT ---
EXAM DESCRIPTION: CT - Pelvis W/Cont - 07/29/2021 6:14 am COMPARISON: None. CLINICAL HISTORY: [facility] MAIN RECTAL DRAINAGE TECHNIQUE: CT of the pelvis was acquired with IV contrast material. Multiplanar reformats were perfo rmed. Automated exposure control was utilized on this examination as a dose lowering technique. FINDINGS: GI tract: Moderate colonic diverticulosis. No evidence of appendicitis. Peritoneal cavity: Ill-defined soft tissue or fluid is partially visualized in the upper abdomen david uring at least 4.8 cm. Retroperitoneum and lymph nodes: Retroperitoneal soft tissue with fat stranding measures 2.9 cm on se peggy 301 image 4. Retroperitoneal lymph nodes are increased in number but not significantly increased in size. Vascular: Moderate multivessel atherosclerosis. Urinary bladder: Mild bladder wall thickening is present. Prostate/Male Urogenital: Normal. Musculoskeletal and soft tissues: Unremarkable soft tissues. Lumbar spondylosis is present. No acute fracture or aggressive osseous lesion. No compression fracture. IMPRESSION: 1. Partially visualized soft tissue masses in the midabdomen and retroperitoneum, concer gisele for lymphadenopathy or neoplastic tissue. Recommend further evaluation with CT of the abdomen wi th IV contrast. 2. Moderate colonic diverticulosis. 3. Mild bladder wall thickening may be due to cystitis or decompression. Electronically signed by: Cruz Galloway MD 07/29/2021 2:11 AM CDT Due to temporary technical issues with the PACS/Fluency reporting system, reports are being signed by the in house radiologist without review as a courtesy to ensure prompt reporting. The interpreting r adiologist is fully responsible for the content of the report.
--- NOTE | 2021-07-29 14:13 | CON ---
Date of Consultation: 07/29/2021 Brief History Of Present Illness: The patient is a 66-year-old male with history of follic ular lymphoma, on R/CHOP chemotherapy; hypertension; gout; BPH; hyperlipidemia; presents to the emerg ency room with a presumed perirectal abscess. He says 3 days ago, he noticed he was having some rect al pain. He has seen a primary care doctor, Dr. Grimes, give him clindamycin and he had worsening pain in the area. However, as of yesterday, he had significant pain. He came to the emergency room and had spontaneous drainage of this perirectal abscess and has significant symptomatic improvement this point where is essentially almost pain free at this point. He notes no additional drainage of the ar ea. As such, I am consulted to see the patient regarding his perirectal concern. Past Medical History: Follicular lymphoma, on chemotherapy currently; hypertension; hyperlipidemia; gout; BPH. Past Surgical History: Includes left hand surgery. Social History: Lives at home with his family. He denies smoking, alcohol, or recreational drug use . Review of Systems: Ten-point review of systems, other than HPI, denies. Physical Examination: General: At the time of my examination, he is awake, alert, oriented. Psychiatric: Appropriate, conversive. HEENT: Normocephalic. Sclerae anicteric. Mucous membranes are moist. Oropharynx is clear. Neck: Supple without JVD. Chest: Normal expansion and excursion. Cardiovascular: Regular rate and rhythm. Pulmonary: Clear to auscultation bilaterally. Abdomen: Soft, nontender, nondistended. No rebound. No guarding. No focal peritonitis. Rectal: His tone was good. He did have a small punctate area of opening with no drainable collectio ns at this point. Palpation of the area showed a well drained perirectal abscess with approximately 0.25 cm opening at this area. At this point, no other surrounding inflammatory changes. Laboratory Data: Reveals a white blood cell count of 8.0, hemoglobin 11.2, hematocrit 13.5, platelet count was 96. His neutrophils were 84%. His PT 12.2, INR 1.06, PTT 31.3. Sodium 139, potassium 2. 7, chloride 108, carbon dioxide 25, BUN 9, creatinine 0.8, glucose is 182. Lactic acid 0.9. AST 7, ALT 20, alkaline phosphatase is 84. His lipase 101. Procalcitonin 0.05. Imaging Studies: He had imaging performed, which include a CT scan of the abdomen and pelvis, which did not demonstrate a perirectal fluid collections, specifically it confirmed the neoplastic process of his abdomen. Benign heart. Radiologist read officially as partially visualized soft tissue mass with a mid abdomen, retroperitoneum concerning for lymphadenopathy or neoplastic tissue. Recommend f urther evaluation for CT. Mild colonic diverticulosis. Mild bladder wall thickening may be due to c ystitis, decompression. Assessment/plan: This is a 66-year-old male, who comes in with a now decompressed perirectal abscess . 1.IV fluid hydration. 2.Antibiotic coverage. 3.Sitz baths t.i.d. and after a bowel movement. 4.The patient will follow up with me in clinic in 1 week for further evaluation. Should the collect ion worsening, he is instructed to come to my clinic or the emergency room with the above-stated issu es. Packing will be placed within the open cavity at this point, which is quarter-inch iodoform pack ing to be replaced daily. I have explained risks, benefits, and alternatives of the above stated bever[place] n. The patient agrees to proceed as indicated. Thank you for this interesting consult. JACKIE/MALCOLM Voice ID: [id number] Report ID: [id number]
== END 2021-07-29 10:04 | disposition home or self-care (01) | DRG 394 ==
LOC: ER 22:10 → ERHOLD 07-29 03:26
PROVIDERS: ADMIT Family Medicine; ATTEND Family Medicine
PROC: 5A09357 Assistance with Respiratory Ventilation, Less than 24 Consecutive Hours, Continuous Positive Airway Pressure (ICD-10-PCS; principal; 2021-07-29)
DX: K61.1 Rectal abscess (principal); C82.90 Follicular lymphoma, unspecified, unspecified site; E78.5 Hyperlipidemia, unspecified; I10 Essential (primary) hypertension; M10.9 Gout, unspecified; G47.33 Obstructive sleep apnea (adult) (pediatric); Z20.822 Contact with and (suspected) exposure to COVID-19
CPT/HCPCS: 36415; 72193; 80048; 80076; 81003; 81015; 82565; 83605; 83690; 84145; 85025; 85610; 85730; 87040; 87086; 87088; 87205; 94660; 96374; 99283; J2543; J7050; Q9967; U0003

== ENCOUNTER 2022-07-06 03:50 | Emergency (ER) | payer OTHER, BC ==
--- OUTSIDE RECORDS SUMMARY | 2022-07-06 03:53 | XMS REPORT | Continuity of Care Document ---
:1955 Author Organization [facility] t Address [address] [place] [address] Care Team Providers Name Role Phone GLORIA YU SAID Attending Clinician Unavailable Gloria Yu Said Attending Clinician Unavailable CORBY STAHL M.D. Attending Clinician Unavailable Physician, No Primary or Family Admitting Clinician UnavailSOLANGE Rankin Admitting Clinician Unavailable Payers Payer Name Policy Type Policy Number Effective Date Expiration Date S ource Problems Condition Condition Condition Status Onset Resolution Last Treating Co mments Source Name Details Category Date Date Treatment Clinician Date Pain of Pain of Problem Active [facility] left hand left hand Phys ici ans Dislocatio Dislocatio Problem Active [facility] n of n [facility] proximal proximal ans interphala interphala ngeal ngeal joint of joint of left left middle middle finger, finger, initial initial encounter encounter Laceration Laceration Problem Active [facility] intrinsic intrinsic ans muscle, muscle, fascia and fascia and tendon of tendon of left thumb left thumb at wrist at wrist and hand and hand level, level, initial initial encounter encounter Disp fx of Disp fx of Problem Active U T proximal proximal Physic i phalanx of phalanx of an s l mid l mid finger, finger, init for init for opn fx opn fx Disp fx of Disp fx of Problem Active U T distal distal Physici phalanx of phalanx of an s l rng l rng fngr, init fngr, init for opn fx for opn fx Disp fx of Disp fx of Problem Active U T medial medial Physici phalanx of phalanx of an s l mid l mid finger, finger, init for init for opn fx opn fx Disp fx of Disp fx of Problem Active U T medial medial Physici phalanx of phalanx of an s l rng l rng fngr, init fngr, init for opn fx for opn fx Allergies, Adverse Reactions, Alerts Allergy Allergy Status Severity Reaction(s) Onset Inactive Treating Comm ents Source Name Type Date Date Clinician No Known DA Active [facility] [place] [facility] d 00 [facility] No Known DA Active [facility] [place] [facility] Medications This patient has no known medications. Procedures Procedure Date / Time Performed Performing Clinician [facility] e Post Op Promis 29 Survey 2020-01-02 00:00:00 DC Physicians Encounters Start End Encounter Admission Attending Care Care Encounter Source Date/Time Date/Time Type Type Clinicians Facility Department ID 2021-06-03 2021-06-03 Outpatient GLORIA YU [facility] 750 [id number] [facility] 08:10:00 11:35:00 2021-06-01 2021-06-01 Outpatient Gloria Randolph [facility] CD0 [id number] [facility] 09:01:00 09:01:00 97 [facility] 2021-05-04 2021-05-04 Inpatient Gloria Randolph [facility] CD02 [id number] [facility] 08:54:00 08:54:00 28 [facility] 2020-01-02 2020-01-02 PHU[facility] [id number] [place] 15:30:00 15:30:00 t; sam TAVAREZ M.D. Sports Kalin Monae M.D. [facility] 2019-12-23 2019-12-23 PHUONG Wong [facility] [id number] [place] 12:30:00 12:30:00 t; Nate TAVAREZ i, M.D. ans ASHTON, M.D. Results Test Description Test Time Test Comments Results Result Comments Source SURGICAL 2021-05-05 15:35:00 Test Item Value Reference Range Interpretation Comme nts SURGICAL RUN (test DATE: 05/05/21 [facility] PAGE 1 RUN TIME: 1535 Specimen Inquiry RUN USER: INTERFACE code = PIA SR) ENT: JUWAN CAMEJO III CCT #: [id number] LOC: [place] U #: [id number] AGE/SX: 66/M ROOM: RE05/04/21REG DR: Sa chente Yu MD : 51 BED: DIS: STATUS: [facility] TLOC: SPEC #: [id number] RECD: 0 05/04/21-1238 STATUS: PASHA MORAES #: [id number] MARC: 05/04/21-[address]: River Laura MD ENTERED: 05/04/211241 SP TYPE: SURGICAL OTHR DR: Caro Provider ORDERED: [id number], ANATOMIC SPEC HISTOLO GY: TISSUE ID BLK PCS JONES LEV / PROCEDURE DISPOSITION ____ ___ ___ ___ ___ RETRO A 1 2 TISSUES: A. RETROPERITONEAL BIOPSY - MAS S GROSS DESCRIPTION In formalin labeled with the patient's name, medical record number and "r etroperitonealmass biopsy" is a 1.5 cm in length waller-white core of soft tissue. The specimen is entirely submitted in cassette A1. MH/DB/tb MICROSCOPIC DESCRIPTION Sections of core biopsy show adipose tissue with lymphoid infiltrate. The lymphoid cellsare mostly small. Outside consul tation from Dr. Diaz is obtained and final diagnosisis to follow. WF/jv PRELIMINARY DI AGNOSIS RETROPERITONEAL MASS, NEEDLE CORE BIOPSY: - LYMPHOID INFILTRATE (SEE COMMENT) COM MENT: CONSULTATION WITH IMMUNOHISTOCHEMICAL WORKUP IS OBTAINED FROM DR. BELLA FINAL DIAGN OSIS IS TO FOLLOW.Informed Dr. Yu at 3:35 pm 05/05/2021This is a preliminary diagnosis. Final report to follow. CLINICAL INFORMATION RETROPERITONEAL MASS CONTINUED ON NEXT PAGE RUN DATE: 05/05/21 Miguel Diaz PAGE 2 RUN TIME: 1535 Specimen Inquiry RUN USER: INTERFACE SPEC #: [id number] PATIENT: NELLECHEVERRIATye TOSCANO III #[id number] (Continued) ------- Signed SIGNATURE ON FILE JingOk WYNN 05/05/21 1535 END OF REPORT [id number] 15:35:00 Test Item Value Reference Range Interpretation Comments SURGICAL (test code = SR) RUN DATE: 05/10/21 [employer] PAGE 1 RUN TIME: 6058 Specimen Inquiry RUN USER: INTERFACE PIA ENT: JUWAN CAMEJO III LOC: [place] U #: [id number] AGE/SX: 66/M ROOM: RE05/04/21REG DR: Gloria Yu MD : 51 BED: DIS: STATUS: DEP [facility] TLOC: SPEC #: [id number] RECD: 05/04/21-1239 STATUS: SOUDavid REQ #: [id number] MARC: 05/04/21-[address] [facility] [address]: River Laura MD ENTERED: 05/04/21-1 SP TYPE: SURGICAL OTHR DR: Caro Provider ORDERED: 07013, 49252/9, 73760, ANATOMIC SPEC HISTOLOGY: TISSUE ID BLK PCS JONES LEV / PROCEDURE DISPOSITION ____ ___ ___ ___ ___ RETRO A 1 2 TISSUES: A. RETROPERITONEAL BIOPSY - MASS ADDENDUM FINDINGS Addendum #1 Entered: 05/10/215 FINAL DIAGNOSIS: RETROPERITONEAL MASS, CT GUIDED CORE NEEDLE BIOPSY: - RECURRENT/RELAPSED FOLLICULAR LYMPHOMA, WHO GRADE 1-2. - SEE COMMENT. COMMENT: PROPERLY CONTROLLED IMMUNOSTAINS CONSISTING OF CD3, CD5, CD10, CD20, BCL-2, BCL-6,CD43, CYCLIN D1, KI-67 AND CD138 WERE PERFORMED ON BLOCK A1 BY [employer] WITH THEFOLLOWING RESULTS: CD3: HIGHLIGHTS BACKGROUND T CELLS AND IS NEGATIVE IN THE ATYPICAL LYMPHOID CELLS.CD5: HIGHLIGHTS BACKGROUND T CELLS AND IS NEGATIVE IN THE ATYPICAL LYMPHOID CELLS.CD10: VARIABLY HIGHLIGHTS THE ATYPICAL LYMPHOID CELLS IN A PATCHY PATTERN. CD20: DIFFUSELY AND STRONGLY HIGHLIGHTS THE ATYPICAL LYMPHOID CELLS.BCL-2: DIFFUSELY AND STRONLY POSITIVE IN THE ATYPICAL LYMPHOID CELLS.BCL-6: POSITIVE IN THE ATYPICAL LYMPHOID CELLS.CD43: HIGHLIGHTS BACKGROUND T CELLS AND IS NEGATIVE IN THE ATYPICAL LYMPHOID CELLS.CYCLIN D1: NEGATIVE IN THE ATYPICAL LYMPHOID CELLS.CD138: HIGHLIGHTS SCATTERED PLASMA CELLS BUT IS NEGATIVE IN THE ATYPICAL LYMPHOID CELLS.KI-67: SHOWS A LOW INDEX OF PROLIFERATION WITH APPROXIMATELY 5-10% OF CELLS STAININGS HENCE, THE MORPHOLOGIC FEATURES AND THE OVERALL IMMUNOHISTOCHEMICAL STAINING PATTERNSSUPPORT THE DIAGNOSIS OF FOLLICULAR LYMPHOMA. CORRELATION WITH IMAGING STUDIES, PERTINENTLABORATORY STUDIES AND THE OVERALL CLINICAL IMPRESSION IS RECOMMENDED. CONTINUED ON NEXT PAGE RUN DATE: 05/10/21 [facility] PAGE 2 RUN TIME: 1347 Specimen Inquiry RUN USER: INTERFACE SPEC #: [id number] PATIENT: JUWAN CAMEJO JENNIFER #[id number] (Continued) ------- ADDENDUM FINDINGS (Continued) Immunohistochemistry: This test was developed and its performancecharacteristics determined by [employer]. It has not been approved nordoes it need approval by the [place] FDA. Appropriate positive and negativecontrols are reviewed and judged to be acceptable. Addendum Signed SIGNATURE ON FILE Wyatt Diaz MD 05/10/21 1347 GROSS DESCRIPTION In formalin labeled with the patient's name, medical record number and "retroperitonealmass biopsy" is a 1.5 cm in length waller-white core of soft tissue. The specimen is entirely submitted in cassette A1. MH/DB/tb MICROSCOPIC DESCRIPTION Sections of core biopsy show adipose tissue with lymphoid infiltrate. The lymphoid cellsare mostly small. Outside consultation from Dr. Diaz is obtained and final diagnosisis to follow. WF/jv PRELIMINARY DIAGNOSIS RETROPERITONEAL MASS, NEEDLE CORE BIOPSY: - LYMPHOID INFILTRATE (SEE COMMENT) COMMENT: CONSULTATION WITH IMMUNOHISTOCHEMICAL WORKUP IS OBTAINED FROM DR. BELLA FINAL DIAGNOSIS IS TO FOLLOW.Informed Dr. Yu at 3:35 pm 05/05/2021This is a preliminary diagnosis. Final report to follow. CLINICAL INFORMATION RETROPERITONEAL MASS Signed SIGNATURE ON FILE Ok Ch MD 05/05/21 1535 END OF REPORT [id number] 15:35:00 Test Item Value Reference Range Interpretation Comments SURGICAL (test code = SR) RUN DATE: 05/30/21 [employer] [facility] PAGE 1 RUN TIME: 1623 Specimen Inquiry RUN USER: INTERFACE PIA ENT: JUWAN CAMEJO III LOC: [place] U #: [id number] AGE/SX: 66/M ROOM: RE05/04/21[facility] DR: Gloria Yu MD : 51 BED: DIS: STATUS: DEP SDC TLOC: SPEC #: [id number] RECD: 05/04/21 STATUS: SOUT REQ #: [id number] MARC: 05/04/[address]: River Laura MD ENTERED: 07/21/21-1241 SP TYPE: SURGICAL OTHR DR: Gloria Yu MD Undefined ProviderORDERED: MOLECULAR REVIE, 83637, 07979/9, 09433, ANATOMIC SPEC HISTOLOGY: TISSUE ID BLK PCS JONES LEV / PROCEDURE DISPOSITION ____ ___ ___ ___ ___ RETRO A 1 2 ORDER QUERIES: Clinician: MIGUEL YU MD Date Contacted: 05/30/21 Testing Requested: FISH C-MYC : Review Outcome: Yes : Pathologist: MELINA JUAREZ MD Clinical Documentation: TISSUES: A. RETROPERITONEAL BIOPSY - MASS ADDENDUM FINDINGS Addendum #2 Entered: 05/30/21-162 At the request of Dr. Yu, the specimen has been submitted to [email or web address] for FISH testingfor c-myc. An addendum with those results will follow. Addendum Signed SIGNATURE ON FILE Melina Juarez MD 05/30/21 2275 Addendum #1 Entered: 05/10/21-5453 FINAL DIAGNOSIS: RETROPERITONEAL MASS, CT GUIDED CORE NEEDLE BIOPSY: - RECURRENT/RELAPSED FOLLICULAR LYMPHOMA, WHO GRADE 1-2. - SEE COMMENT. COMMENT: PROPERLY CONTROLLED IMMUNOSTAINS CONSISTING OF CD3, CD5, CD10, CD20, BCL-2, BCL-6,CD43, CYCLIN D1, KI-67 AND CD138 WERE PERFORMED ON BLOCK A1 BY [employer] WITH THE CONTINUED ON NEXT PAGE RUN DATE: 05/30/21 [facility] [facility] PAGE 2 RUN TIME: 1623 Specimen Inquiry RUN USER: INTERFACE SPEC #: [id number] PATIENT: JUWAN CAMEJO III #[id number] (Continued) ------- ADDENDUM FINDINGS (Continued) FOLLOWING RESULTS: CD3: HIGHLIGHTS BACKGROUND T CELLS AND IS NEGATIVE IN THE ATYPICAL LYMPHOID CELLS.CD5: HIGHLIGHTS BACKGROUND T CELLS AND IS NEGATIVE IN THE ATYPICAL LYMPHOID CELLS.CD10: VARIABLY HIGHLIGHTS THE ATYPICAL LYMPHOID CELLS IN A PATCHY PATTERN. CD20: DIFFUSELY AND STRONGLY HIGHLIGHTS THE ATYPICAL LYMPHOID CELLS.BCL-2: DIFFUSELY AND STRONLY POSITIVE IN THE ATYPICAL LYMPHOID CELLS.BCL-6: POSITIVE IN THE ATYPICAL LYMPHOID CELLS.CD43: HIGHLIGHTS BACKGROUND T CELLS AND IS NEGATIVE IN THE ATYPICAL LYMPHOID CELLS.CYCLIN D1: NEGATIVE IN THE ATYPICAL LYMPHOID CELLS.CD138: HIGHLIGHTS SCATTERED PLASMA CELLS BUT IS NEGATIVE IN THE ATYPICAL LYMPHOID CELLS.KI-67: SHOWS A LOW INDEX OF PROLIFERATION WITH APPROXIMATELY 5-10% OF CELLS STAININGS HENCE, THE MORPHOLOGIC FEATURES AND THE OVERALL IMMUNOHISTOCHEMICAL STAINING PATTERNSSUPPORT THE DIAGNOSIS OF FOLLICULAR LYMPHOMA. CORRELATION WITH IMAGING STUDIES, PERTINENTLABORATORY STUDIES AND THE OVERALL CLINICAL IMPRESSION IS RECOMMENDED. Immunohistochemistry: This test was developed and its performancecharacteristics determined by [employer]. It has not been approved nordoes it need approval by the [place] FDA. Appropriate positive and negativecontrols are reviewed and judged to be acceptable. Addendum Signed SIGNATURE ON FILE Wyatt Diaz MD 05/10/21 1347 GROSS DESCRIPTION In formalin labeled with the patient's name, medical record number and "retroperitonealmass biopsy" is a 1.5 cm in length waller-white core of soft tissue. The specimen is entirely submitted in cassette A1. MH/DB/tb MICROSCOPIC DESCRIPTION Sections of core biopsy show adipose tissue with lymphoid infiltrate. The lymphoid cellsare mostly small. Outside consultation from Dr. Diaz is obtained and final diagnosisis to follow. ROBBIN/yaya CONTINUED ON NEXT PAGE RUN DATE: 05/30/21 [facility] PAGE 3 RUN TIME: 1623 Specimen Inquiry RUN USER: INTERFACE SPEC #: [id number] PATIENT: JUWAN CAMEJO EVERTON RODRIGUEZ #[id number] (Continued) ------- PRELIMINARY DIAGNOSIS RETROPERITONEAL MASS, NEEDLE CORE BIOPSY: - LYMPHOID INFILTRATE (SEE COMMENT) COMMENT: CONSULTATION WITH IMMUNOHISTOCHEMICAL WORKUP IS OBTAINED FROM DR. BELLA FINAL DIAGNOSIS IS TO FOLLOW.Informed Dr. Yu at 3:35 pm 05/05/2021This is a preliminary diagnosis. Final report to follow. CLINICAL INFORMATION RETROPERITONEAL MASS Signed SIGNATURE ON FILE Ok Ch MD 05/05/21 1535 END OF REPORT [id number] 15:35:00 Test Item Value Reference Range Interpretation Comments SURGICAL (test code = SR) RUN DATE: 06/06/21 [employer] PAGE 1 RUN TIME: 1200 Specimen Inquiry RUN USER: INTERFACE PIA ENT: JUWAN CAMEJO III LOC: [place] U #: [id number] AGE/SX: 66/M ROOM: RE05/04/21REG DR: Gloria Yu MD : 51 BED: DIS: STATUS: DEP [facility] TLOC: SPEC #: [id number] RECD: 05/04/21 STATUS: PASHA REQ #: [id number] MARC: 05/04/21-[address] [facility] [address]: River Laura MD ENTERED: 05/04/212 SP TYPE: SURGICAL OTHR DR: Gloria Yu MD Undefined ProviderORDERED: MOLECULAR REVIE, 37341, 79108/9, 58823, 89653-35, ANATOMIC SPEC HISTOLOGY: TISSUE ID BLK PCS JONES LEV / PROCEDURE DISPOSITION ____ ___ ___ ___ ___ RETRO A 1 2 ORDER QUERIES: Clinician: MIGUEL YU MD Date Contacted: 05/30/21 Testing Requested: FISH C-MYC : Review Outcome: Yes : Pathologist: MELINA JUAREZ MD Clinical Documentation: TISSUES: A. RETROPERITONEAL BIOPSY - MASS ADDENDUM FINDINGS Addendum #3 Entered: 06/06/21-6994 This addendum is to report the results from [email or web address] MYC Rearrangement: NOT DETECTEDMYC amplification: NOT DETECTED All controls were within expected ranges. Interpretation: MELINA JUAREZ M.D.The Technical Component Processing of this test was completed at [email or web address] [address] / [address] / [phone] / CLIA #[id number] / Planting Material Remover(s):Mark Pope M.D.. The Technical Component Analysis of this test was [facility], [address] [place] [address] / [address] / [phone] / CLIA#[id number] / Planting Material Remover(s): Peewee Latham M.D. The Professional Component of this testwas completed at [address] [address] / / . For complete details please see separate [email or web address] report, [id number] CONTINUED ON NEXT PAGE RUN DATE: 06/06/21 [facility] PAGE 2 RUN TIME: 1200 Specimen Inquiry RUN USER: INTERFACE SPEC #: [id number] PATIENT: NELLECHEVERRIATye TOSCANO III #[id number] (Continued) ------- ADDENDUM FINDINGS (Continued) Addendum Signed SIGNATURE ON FILE Melina Juarez MD 06/06/21 1200 Addendum #2 Entered: 05/30/215268 At the request of Dr. Yu, the specimen has been submitted to [email or web address] for FISH testingfor c-myc. An addendum with those results will follow. Addendum Signed SIGNATURE ON FILE Melina Juarez MD 05/30/21 1623 Addendum #1 Entered: 05/10/21-6432 FINAL DIAGNOSIS: RETROPERITONEAL MASS, CT GUIDED CORE NEEDLE BIOPSY: - RECURRENT/RELAPSED FOLLICULAR LYMPHOMA, WHO GRADE 1-2. - SEE COMMENT. COMMENT: PROPERLY CONTROLLED IMMUNOSTAINS CONSISTING OF CD3, CD5, CD10, CD20, BCL-2, BCL-6,CD43, CYCLIN D1, KI-67 AND CD138 WERE PERFORMED ON BLOCK A1 BY [employer] WITH THEFOLLOWING RESULTS: CD3: HIGHLIGHTS BACKGROUND T CELLS AND IS NEGATIVE IN THE ATYPICAL LYMPHOID CELLS.CD5: HIGHLIGHTS BACKGROUND T CELLS AND IS NEGATIVE IN THE ATYPICAL LYMPHOID CELLS.CD10: VARIABLY HIGHLIGHTS THE ATYPICAL LYMPHOID CELLS IN A PATCHY PATTERN. CD20: DIFFUSELY AND STRONGLY HIGHLIGHTS THE ATYPICAL LYMPHOID CELLS.BCL-2: DIFFUSELY AND STRONLY POSITIVE IN THE ATYPICAL LYMPHOID CELLS.BCL-6: POSITIVE IN THE ATYPICAL LYMPHOID CELLS.CD43: HIGHLIGHTS BACKGROUND T CELLS AND IS NEGATIVE IN THE ATYPICAL LYMPHOID CELLS.CYCLIN D1: NEGATIVE IN THE ATYPICAL LYMPHOID CELLS.CD138: HIGHLIGHTS SCATTERED PLASMA CELLS BUT IS NEGATIVE IN THE ATYPICAL LYMPHOID CELLS.KI-67: SHOWS A LOW INDEX OF PROLIFERATION WITH APPROXIMATELY 5-10% OF CELLS STAININGS HENCE, THE MORPHOLOGIC FEATURES AND THE OVERALL IMMUNOHISTOCHEMICAL STAINING PATTERNSSUPPORT THE DIAGNOSIS OF FOLLICULAR LYMPHOMA. CORRELATION WITH IMAGING STUDIES, PERTINENTLABORATORY STUDIES AND THE OVERALL CLINICAL IMPRESSION IS RECOMMENDED. Immunohistochemistry: This test was developed and its performancecharacteristics determined by [employer]. It has not been approved nor CONTINUED ON NEXT PAGE RUN DATE: 06/06/21 [employer] [facility] PAGE 3 RUN TIME: 1200 Specimen Inquiry RUN USER: INTERFACE SPEC #: [id number] PATIENT: JUWAN CAMEJO III #[id number] (Continued) ------- ADDENDUM FINDINGS (Continued) does it need approval by the [place] FDA. Appropriate positive and negativecontrols are reviewed and judged to be acceptable. Addendum Signed SIGNATURE ON FILE Wyatt Diaz MD 05/10/21 1347 GROSS DESCRIPTION In formalin labeled with the patient's name, medical record number and "retroperitonealmass biopsy" is a 1.5 cm in length waller-white core of soft tissue. The specimen is entirely submitted in cassette A1. MH/DB/tb MICROSCOPIC DESCRIPTION Sections of core biopsy show adipose tissue with lymphoid infiltrate. The lymphoid cellsare mostly small. Outside consultation from Dr. Diaz is obtained and final diagnosisis to follow. WF/jsandrine PRELIMINARY DIAGNOSIS RETROPERITONEAL MASS, NEEDLE CORE BIOPSY: - LYMPHOID INFILTRATE (SEE COMMENT) COMMENT: CONSULTATION WITH IMMUNOHISTOCHEMICAL WORKUP IS OBTAINED FROM DR. BELLA FINAL DIAGNOSIS IS TO FOLLOW.Informed Dr. Yu at 3:35 pm 05/05/2021This is a preliminary diagnosis. Final report to follow. CLINICAL INFORMATION RETROPERITONEAL MASS Signed SIGNATURE ON FILE Ok Ch MD 05/05/21 1535 END OF REPORT - CT GUID NDL PLCMT (Biopsy/Asp)2021-05-04 15:08:00 [facility] : 1955 Sex: M FAX: Gloria Salazar MD [phone] [place]: St: REG Name: JUWAN CAMEJO [facility] : 1955 Age/S: 66/M [address] Unit: [id number] Loc: [place] [address] Phys: Gloria Yu MD Acct: [id number] Dis Date: Status: REG [facility] PHONE #: [phone] Exam Date: 05/04/2021 1209 FAX #: [phone] Reason: OTH - Define in COMMENTS EXAMS: CPT CODE: [id number] CT GUID NDL PLCMT (Biopsy/Asp) 85194 PROCEDURE: 1. CT-GUIDED BIOPSY OF THE RETROPERITONEUM ENLARGED LYMPH NODE INDICATION: Lymphadenopathy,OTH - Define in COMMENTS COMPARISON: None LOCATION CODE: C3 TECHNIQUE: Risks, benefits, and procedure were thoroughly discussed with the patient. He understood and gave both written and verbal consent.The patient was taken to the CT suite where he was placed in a prone position. Timeout for patient'ssafety was performed. The area was prepped and draped in a sterile fashion. Under CT guidance, a 18 -gauge x 16 cm coaxial needle placed in position. Multiple core biopsies were obtained and placed in formalin solution. Multiple core biopsies were obtained. One or more of the following dose reduction techniques were used: Automated exposure control, adjustment of the mA and/or kV according to patientsize, and/or utilization of iterative reconstruction technique. At completion of the procedure, all needles were removed. Hemostasis was unable to be achieved despite the usage of Gelfoam slurry. Then a 3 mm x 3 cm coil were utilized to achieve hemostasis. Mild focal pressure dressing was applied and patient was subsequently discharged with a prescription for pain medication. Total Exam DLP : 772 mGy/cm CTDI vol: 36 mGy DISCUSSION: Initial preliminary images demonstrate multiple enlarged lymph nodes along the aorta in the retroperitoneum. IMPRESSION: Status post successful CT guided biopsy of a large lymph node in the retroperitoneum. Specimen was sent to pathology for analysis. PAGE 1 Signed Report (CONTINUED) FAX: Gloria Salazar MD [phone] [place]: St: REG Name: JUWAN CAMEJO III [facility] : 1955 Age/S: 66/M [address] Unit: [id number] Loc: [place] [address] Phys: Gloria Yu MD Acct: [id number] Dis Date: Status: REG SDC PHONE #: [phone] Exam Date: 05/04/2021 1208FAX #: [phone] Reason: OTH - Define in COMMENTS EXAMS: CPT CODE: [id number] CT GUID NDL PLCMT (Biopsy/Asp) 32162 (Continued) at 1508 Reported and signed by: River Laura MD CC: Samer Shayna Yu Technologist: JOSEPH SHERMAN Trnscrd Dt/Tm: 05/04/2021 (5690) tTUCKERHPReyes Orig Print D/T: S: 05/04/2021 (1512 PAGE 2 Signed ReportPROTHROMBIN [id number] 17:00:00 Test Item Value Reference Range Interpretation Comments PROTHROMBIN TIME 11.6 SECONDS 9.2-12.1 N PATIENT (test code = PTP) INTERNATIONAL NORMAL 1.0 The INR is to be used RATIO (test code = only for monitoring INR) ORAL ANTICOAGULANTTH ERAPY. Indication INR Value1. Prophylaxis/ray atment of: Venous Thro mbosis, Pulmonary Embol ism 2.0 - 3.02. Prevent ion of systemic emboli sm from: Tissue he art valves 2.0 - 3. 0 Acute myocardial infa rction (to present sys temic embolism)* 2.0 - 3.0 Valvular heart disease 2.0 - 3.0 Atria l fibrillation 2 .0 - 3.03. Mechanica l prosthetic valv es (high risk) 2.5 - 3.5 * If oral anticoagulant t herapy is elected to preventrecurren t myocardial infa rction, an INR of 2.5-3 .5 isrecommended, consistent with Food and Drug Administrationr ecommen dations. THROMBOPLASTIN TIME [id number] 17:00:00 Test Item Value Reference Range Interpretation Comments THROMBOPLASTIN TIME 32.6 SECONDS 23.4-37.0 N Therape utic Range PARTIAL (test code = for Hep melodie PTT) EFFECTIVE Heparin IU/mL a PTT Seconds0.3 64.3 0.7 88.8 BASIC METABOLIC [id number] 16:56:00 Test Item Value Reference Range Interpretation Comments SODIUM (test code = 142 mmol/L 137-145 N NA) POTASSIUM (test code 4.2 mmol/L 3.4-5.0 N = K) CHLORIDE (test code = 104 mmol/L 98-107 N CL) CARBON DIOXIDE (test 31 mmol/L 22-30 H code = CO2) GLUCOSE (test code = 153 mg/dL 74-106 H GLU) BLOOD UREA NITROGEN 15 mg/dL 9-20 N (test code = BUN) GLOMERULAR FILTRATION 79 >60 The es timated RATE (test code = glomerular filtration GFR) rate is compute d usingpatient ra ce, age (>18), sex, and serum creatinine. If anyof the needed data elements are mi ssing the Laboratory cannot compute an skinny mation of the glomerul ar filtration rate . CREATININE (test code 1.0 mg/dL 0.7-1.3 N = CREAT) CALCIUM (test code = 9.1 mg/dL 8.4-10.2 N CA) CBC W/AUTO [id number] 16:39:00 Test Item Value Reference Range Interpretation Comments WHITE BLOOD CELL (test code = 6.2 x10 3/uL 5.0-12.0 N WBC) RED BLOOD CELL (test code = 4.78 x10 6/uL 4.70-6.10 N RBC) HEMOGLOBIN (test code = HGB) 14.5 g/dL 14.0-18.0 N HEMATOCRIT (test code = HCT) 43.2 % 37.0-49.0 N MEAN CELL VOLUME (test code = 90 fL 80-94 N MCV) MEAN CELL HGB (test code = MCH) 30.3 pg 27-31 N MEAN CELL HGB CONCENTRATION 33.6 g/dL 33-37 N (test code = MCHC) RED CELL DISTRIBUTION WIDTH 13.7 % 11.5-15.5 N (test code = RDW) PLATELET COUNT (test code = 129 x10 3/uL 130-400 L PLT) MEAN PLATELET VOLUME (test code 10.5 fL 9.4-16.4 N = MPV) NEUTROPHIL % (test code = NT%) 78.7 % 43-65 H IMMATURE GRANULOCYTE % (test 0.6 % 0.0-2.0 N code = IG%) LYMPHOCYTE % (test code = LY%) 10.9 % 20.5-45.5 L MONOCYTE % (test code = MO%) 7.2 % 5.5-11.7 N EOSINOPHIL % (test code = EO%) 2.1 % 0.9-2.9 N BASOPHIL % (test code = BA%) 0.5 % 0.2-1.0 N NUCLEATED RBC % (test code = 0.0 % 0-1.0 N NRBC%) NEUTROPHIL # (test code = NT#) 4.90 x10 3/uL 2.2-4.8 H IMMATURE GRANULOCYTE # (test 0.04 x10 3/uL 0-0.03 H code = IG#) LYMPHOCYTE # (test code = LY#) 0.68 x10 3/uL 1.3-2.9 L MONOCYTE # (test code = MO#) 0.45 x10 3/uL 0.3-0.8 N EOSINOPHIL # (test code = EO#) 0.13 x10 3/uL 0.0-0.2 N BASOPHIL # (test code = BA#) 0.03 x10 3/uL 0.0-0.1 N [U] XRAY HAND MIN 3 VWS LEFT [id number] 12:47:00Images acquired, not reported on this accession number.[facility]
[2022-07-06 04:52] LABS: Absolute Lymphocytes (CBC) 0.1 K/uL (0.7-4.9); Hematocrit 36.3 % (39.6-49.0); Lymphocytes % 7.1 % (15.3-44.8); MCV 90.9 fL (80-100); MPV 8.3 fL (7.6-11.3); RBC Red Blood Cell Count 3.99 M/uL (4.33-5.43)
[2022-07-06 05:00] LABS: Potassium 3.8 mmol/L (3.5-5.1)
--- NOTE | 2022-07-06 06:44 | ER ---
Nurse's Notes [facility] Name: Lynnette Lester Age: 67 yrs Sex: Male : 1955 Arrival Date: 07/06/2022 Time: 03:53 Bed 6 Private MD: Diagnosis: SARS-associated coronavirus as the cause of diseases classified elsewhere;Fever, unspecified;Myalgia Presentation: 07/06 04:17 Chief complaint: Patient states: he was diagnosed with flu about 10 days ago and given bb several different antibiotics, tamiflu but it is not helping and he is still running fever, coughing, and having difficulty breathing. Coronavirus screen: cough unrelated to allergies, difficulty breathing, fever. Ebola Screen: No symptoms or risks identified at this time. Initial Sepsis Screen: Does the patient meet any 2 criteria? No. Patient's initial sepsis screen is negative. Does the patient have a suspected source of infection? No. Patient's initial sepsis screen is negative. Risk Assessment: Do you want to hurt yourself or someone else? Patient reports no desire to harm self or others. Onset of symptoms was June 25, 2022. 04:17 Method Of Arrival: Ambulatory bb 04:17 Acuity: JUVENAL 3 bb Triage Assessment: 04:42 General: Appears in no apparent distress. Behavior is calm, cooperative, appropriate tw5 for age. Historical: - Allergies: 04:20 No Known Allergies; bb - Home Meds: 04:20 aspirin 81 mg Oral chew 1 tab once daily [Active]; Allopurinol Oral [Active]; bb triamterene [Active]; olmesartan oral [Active]; rosuvastatin oral [Active]; - PMHx: 04:20 High Cholesterol; Hyperlipidemia; Follicular lymphoma; bb - Immunization history:: Moderna x 3. - Social history:: Smoking status: Patient denies any tobacco usage or history of. Screenin:41 Abuse screen: Denies threats or abuse. Denies injuries from another. Nutritional tw5 screening: No deficits noted. Tuberculosis screening: No symptoms or risk factors identified. Fall Risk IV access (20 points). Assessment: 04:31 General: Reports "I feel like hell, like someone has beat me like a stick."\\E\\ tw5 states "He went to the doctor and said he had the flu, he had nausea, fever, fatigue and poor appetite, what has me concerned is the cough that just started.". Pain: Pain currently is 0 out of 10 on a pain scale. Neuro: No deficits noted. Cardiovascular: No deficits noted. Respiratory: Reports cough that is non-productive, dry, persistent Airway is patent Trachea midline. Derm: Skin is intact, is healthy with good turgor. Vital Signs: 04:17 BP 129 / 87; Pulse 98; Resp 18 A; Temp 98.4(O); Pulse Ox 95% on R/A; Weight 80.74 kg bb (R); Height 5 ft. 6 in. (167.64 cm) (R); Pain 0/10; 04:40 BP 129 / 87; Pulse 92; Resp 18; Pulse Ox 98% on R/A; tw5 04:17 Body Mass Index 28.73 (80.74 kg, 167.64 cm) ED Course: 03:53 Patient arrived in ED. bp1 03:54 Kyle Horner DO is Attending Physician. ms3 04:04 Collette Oconnell is Primary Nurse. tw5 04:20 Triage completed. bb 04:20 Arm band placed on Patient placed in an exam room, on a stretcher, on pulse oximetry. bb Family accompanied patient. 04:39 Awaiting lab results. tw5 04:39 Patient has correct armband on for positive identification. Pulse ox on. NIBP on. Door tw5 closed. Noise minimized. Moved to private room. Warm blanket given. Verbal reassurance given. 04:39 SARS-COV-2 RT PCR (Document "Date of Onset" if Symptomatic) Sent. tw5 04:39 Influenza Screen (A Sent. tw5 04:39 BMP Sent. tw5 04:39 CBC with Diff Sent. tw5 04:39 Flu Sent. tw5 04:39 Initial lab(s) drawn, by me, sent to lab. COVID swab sent to lab. Flu and/or RSV swab tw5 sent to lab. Inserted saline lock: 20 gauge in right antecubital area, using aseptic technique. Blood collected. 04:42 No provider procedures requiring assistance completed. tw5 05:05 Chest Pa And Lat (2 Views) XRAY In Process Unspecified. EDMS 07:21 IV discontinued, intact, bleeding controlled, No redness/swelling at site. Pressure tw5 dressing applied. Administered Medications: No medications were administered Outcome: 06:43 Discharge ordered by . ms3 07:21 Discharged to home ambulatory, with family. tw5 07:21 Condition: good 07:21 Discharge instructions given to patient, Instructed on discharge instructions, follow up and referral plans. Demonstrated understanding of instructions, follow-up care. 07:22 Patient left the ED. tw5 Signatures: Dispatcher [employer] EDSneha Maloney RN RN Kyle Cruz DO DO ms3 Lisbet Gallegos Tiffany tw5
--- NOTE | 2022-07-06 06:45 | EDPHYS ---
Physician Documentation [facility] Name: Lynnette Elder Age: 67 yrs Sex: Male : 1955 Arrival Date: 07/06/2022 Time: 03:53 Bed 6 Private MD: ED Physician Kyle Horner HPI: 07/06 09:14 This 67 yrs old Male presents to ER via Ambulatory with complaints of Fever. ms3 09:14 67-year-old male with past medical history of high cholesterol, hyperlipidemia, ms3 follicular lymphoma presents for fever that is been ongoing for 1 week. Patient states he saw his primary care physician who told patient he had flu. Patient endorses nausea and cough. Patient denies vomiting or pain. Patient states tonight his temperature was 100.3 at home and patient took Tylenol or NyQuil prior to arrival. Patient denies alleviating or inciting factors. Historical: - Allergies: 04:20 No Known Allergies; bb - Home Meds: 04:20 aspirin 81 mg Oral chew 1 tab once daily [Active]; Allopurinol Oral [Active]; bb triamterene [Active]; olmesartan oral [Active]; rosuvastatin oral [Active]; - PMHx: 04:20 High Cholesterol; Hyperlipidemia; Follicular lymphoma; bb - Immunization history:: Moderna x 3. - Social history:: Smoking status: Patient denies any tobacco usage or history of. ROS: 09:14 Constitutional: Positive for body aches, chills, fatigue, fever. ms3 09:14 Respiratory: Positive for cough. 09:14 All other systems are negative. 09:16 Cardiovascular: Negative for chest pain, and palpitations. ms3 Exam: 09:14 Constitutional: This is a well developed, well nourished patient who is awake, alert, ms3 and in no acute distress. Head/Face: Normocephalic, atraumatic. Neck: Trachea midline, no cervical lymphadenopathy. Supple, full range of motion without nuchal rigidity, or vertebral point tenderness. No Meningismus. Chest/axilla: Normal chest wall appearance and motion. Nontender with no deformity. Cardiovascular: Regular rate and rhythm with a normal S1 and S2. No gallops, murmurs, or rubs. Normal PMI, no JVD. No pulse deficits. Respiratory: Lungs have equal breath sounds bilaterally, clear to auscultation and percussion. No rales, rhonchi or wheezes noted. No increased work of breathing, no retractions or nasal flaring. Abdomen/GI: Soft, non-tender, with normal bowel sounds. No distension or tympany. No guarding or rebound. No evidence of tenderness throughout. Skin: Warm, dry with normal turgor. Normal color with no rashes, no lesions, and no evidence of cellulitis. MS/ Extremity: Pulses equal, no cyanosis. Neurovascular intact. Full, normal range of motion. Psych: Awake, alert, with orientation to person, place and time. Behavior, mood, and affect are within normal limits. Vital Signs: 04:17 BP 129 / 87; Pulse 98; Resp 18 A; Temp 98.4(O); Pulse Ox 95% on R/A; Weight 80.74 kg bb (R); Height 5 ft. 6 in. (167.64 cm) (R); Pain 0/10; 04:40 BP 129 / 87; Pulse 92; Resp 18; Pulse Ox 98% on R/A; tw5 04:17 Body Mass Index 28.73 (80.74 kg, 167.64 cm) bb MDM: 04:22 Patient medically screened. ms3 09:14 Differential diagnosis: viral Infection, URI, pneumonia. Data reviewed: vital signs, ms3 nurses notes, lab test result(s), radiologic studies, and as a result, I will discharge patient. Counseling: I had a detailed discussion with the patient and/or guardian regarding: the historical points, exam findings, and any diagnostic results supporting the discharge/admit diagnosis, lab results, radiology results, the need for outpatient follow up, to return to the emergency department if symptoms worsen or persist or if there are any questions or concerns that arise at home. Special discussion: I discussed with the patient/guardian in detail that at this point there is no indication for admission to the hospital. It is understood, however, that if the symptoms persist or worsen the patient needs to return immediately for re-evaluation. ED course: Discussed labs and chest x-ray results with patient. Patient states he has CT of his chest scheduled as hilar mass was seen on PET scan. Patient to follow-up with his primary care physician in 2 to 3 days. Patient and his understand and agree with plan. All questions were answered. Return precautions discussed include worsening symptoms, or any other concerns. On reevaluation patient is alert and oriented x4, in no apparent distress, nontoxic, ambulatory in emergency department, speaking full sentences.. 07/06 04:24 Order name: CBC with Diff ms3 07/06 04:24 Order name: BMP; Complete Time: 06:39 ms3 07/06 04:24 Order name: Flu; Complete Time: 06:39 ms3 07/06 04:26 Order name: Influenza Screen (A ; Complete Time: 06:39 EDMS 07/06 04:30 Order name: SARS-COV-2 RT PCR (Document "Date of Onset" if Symptomatic) tw5 07/06 04:24 Order name: Chest Pa And Lat (2 Views) XRAY ms3 07/06 04:56 Order name: CBC Smear Scan EDMS Administered Medications: No medications were administered Disposition Summary: 07/06/22 06:43 Discharge Ordered Location: Home ms3 Condition: Stable ms3 Diagnosis - SARS-associated coronavirus as the cause of diseases classified elsewhere ms3 - Fever, unspecified ms3 - Myalgia ms3 Followup: ms3 - With: Private Physician - When: 2 - 3 days - Reason: Recheck today's complaints Discharge Instructions: - Discharge Summary Sheet ms3 - COVID-19 ms3 - 10 Things You Can Do to Manage Your COVID-19 Symptoms at Home - [facility] ms3 - Viral Illness, Adult ms3 - COVID-19: Quarantine vs. Isolation - [facility] ms3 - Prevent the Spread of COVID-19 if You Are Sick - [facility] ms3 Forms: - Medication Reconciliation Form ms3 - Thank You Letter ms3 - Antibiotic Education ms3 - Prescription Opioid Use ms3 Signatures: Dispatcher [employer] EDSneha Maloney, RN RN Kyle Cruz DO DO ms3
[2022-07-06 07:33] LABS: Blood Morphology Comment NOT SEEN (NOT SEEN); Platelet Estimate DECR; White Blood Cell Scan OK (OK)
--- NOTE | 2022-07-06 13:53 | RAD REPORT ---
EXAM DESCRIPTION: XR Chest, 2 Views CLINICAL HISTORY: The patient is 67 years old and is Male; Cough TECHNIQUE: Frontal and lateral views of the chest. COMPARISON: No relevant prior studies available. FINDINGS: LUNGS: Prominence of the right hilum may reflect prominent pulmonary vasculature, but co uld not exclude a right hilar mass. Further characterization by dedicated chest CT recommended. Lef t basilar atelectasis versus scarring. Remaining lungs are well-aerated and clear. PLEURAL SPACE: No pleural effusion. No pneumothorax. HEART: Unremarkable. No cardiomegaly. MEDIASTINUM: Unremarkable. BONES/JOINTS: Unremarkable. TUBES, LINES AND DEVICES: Right subclavian approach Port-A-Cath tip terminates in the right atria. UPPER ABDOMEN: Marked right hemidiaphragm elevation, of uncertain chronicity. IMPRESSION: Prominence of the right hilum may reflect prominent pulmonary vasculature, but could not exclude a right hilar mass. Further characterization by dedicated chest CT recommended. Electronically signed by: Valentino Gillette MD 07/06/2022 5:29 AM CDT Due to temporary technical issues with the PACS/Fluency reporting system, reports are being signed by the in house radiologists without review as a courtesy to insure prompt reporting. The interpreting radiologist is fully responsible for the content of the report.
[2022-07-07 23:55] VITALS: BP 129/87; TEMP 98.4
[2022-07-07 23:57] VITALS: O2SAT 98
== END 2022-07-06 07:22 | disposition home or self-care (01) ==
LOC: ER 03:50
DX: U07.1 COVID-19 (principal); M79.10 Myalgia, unspecified site; E78.00 Pure hypercholesterolemia, unspecified; Z79.82 Long term (current) use of aspirin
CPT/HCPCS: 85025; 80048; 36415; 87804 ×2; 71046; 99284; U0003

== ENCOUNTER 2023-07-02 11:20 | Day surgery (SDC) | payer OTHER, BC ==
[2023-06-28 12:11] LABS: Potassium 4.2 mEq/L (3.5-5.1)
--- NOTE | 2023-06-29 16:36 | EKG ---
Test Date: 2023-06-28 Test Time: 11:49:48 Electronic Funds Transfer Coordinator: TERRENCE MEASUREMENT RESULTS: Intervals: Rate: 69 [place]: 164 QRSD: 82 QT: 394 QTc: 422 [place]: P: 59 [place]: 164 QRS: -8 T: 73 INTERPRETIVE STATEMENTS: Sinus rhythm with sinus arrhythmia with occasional premature ventricular complexes Otherwise normal ECG No previous ECG available for comparison Electronically Signed On 06-29-23 16:32:23 CDT by Chandler Ambrosio
[2023-07-02] MEDS ORDERED: Ringers Lactate 1,000 ML IV ONE (11:45)
[2023-07-02] MEDS ORDERED: CEFAZOLIN SODIUM 2 GM/VIAL ONE (11:45)
[2023-07-02] MEDS ORDERED: BUPIVACAINE 0.25% PF 10 ML VIAL ONE (12:22)
[2023-07-02] MEDS ORDERED: LIDOCAINE 2% MPF 5 ML VIAL ONE (12:46)
[2023-07-02] MEDS ORDERED: ONDANSETRON 4 MG/2 ML VIAL ONE (12:46)
[2023-07-02] MEDS ORDERED: MIDAZOLAM HCL 2 MG/2 ML INJ ONE (12:46)
[2023-07-02] MEDS ORDERED: ROCURONIUM 50 MG/5 ML VIAL IV ONE (12:46)
[2023-07-02] MEDS ORDERED: propofoL 200 MG/20 ML VIAL IV ONE (12:46)
[2023-07-02] MEDS ORDERED: FENTANYL CITR 100 MCG/2 ML ONE (12:46)
[2023-07-02] MEDS ORDERED: EPHEDRINE SULF 50 MG/ML VIAL ONE (13:39)
--- NOTE | 2023-07-02 13:56 | P.OP ---
Preoperative diagnosis: Umbilical Hernia Postoperative diagnosis: Umbilical Hernia Primary procedure: Laparoscopic Umbilical Hernia Repair with Mesh Anesthesia: GETA +Local Estimated blood loss: <5cc Specimen: None Findings: Umbilical Hernia Complications: None Implants: Ventralite ST mesh 11.4cm Round, Sorbafix x 45 tacks Transferred to: Recovery Room Condition: Good
[2023-07-02] MEDS ORDERED: SUGAMMADEX SODIUM 200 MG/2 ML VIAL IV ONE (14:12)
[2023-07-02] MEDS ORDERED: KETOROLAC 30 MG/ML INJ ONE (14:16)
[2023-07-02] MEDS: HYDROMORPHONE HCL 2 MG/ML inj ONE ×4 (14:20→14:44)
[2023-07-02] MEDS: FENTANYL CITR 100 MCG/2 ML ONE ×3 (14:55→15:07)
[2023-07-02 16:02] VITALS: BP 132/70; O2SAT 95
[2023-07-02 16:03] VITALS: TEMP 97
--- NOTE | 2023-07-03 01:34 | OP ---
Date of Procedure: 07/02/2023 Surgeon: Murtaza Romero MD, Preoperative Diagnosis: Umbilical hernia. Postoperative Diagnosis: Umbilical hernia. Procedure Performed: Laparoscopic umbilical hernia repair with mesh. Anesthesia: General endotracheal plus local with 0.25% Marcaine. Estimated Blood Loss: Less than 5 cc. Specimen: None. Findings: Umbilical hernia approximately 1.5 cm in size. Complications: None. Implants: Bard Ventralight ST mesh with Echo positioning System, length 0.4 cm round mesh utilized, SorbaFix absorbable fixation tacks, x45 tacks utilized. The patient transferred to recovery room in good condition. Procedure In Detail: After informed consent was obtained, patient was brought to the operating room, and prepped and draped in the usual sterile fashion. After adequate anesthesia was achieved, an are a of left upper quadrant was anesthetized with 0.25% Marcaine, sharply incised with 5 mm trocars and placed under direct visualization without any complication. Insufflation was obtained to 15 mmHg at this time. There was no injury to bowel abdomen. One additional trocar was placed. A 12 mm trocar was placed in the left midabdomen. This was similarly anesthetized and sharply incised. A 12 mm trocar was placed under direct visualization without any complication. I proceeded to remove the preperitoneal fat and hernia contents from approximately 1.5 cm umbilical hernia using Equant Li gaSure type device to peel back the preperitoneal fat and allow for appropriate landing zone in the a bdominal wall. After it was stripped back appropriately, the hernia sac was easily appreciated and i mbricated. At this point, I then placed a 11.4 cm Bard Ventralight mesh with echo positioning system to the central portion of the defect by making a separate stab incision and applying the balloon dep loyment system through a supraumbilical incision. The balloon mesh was then deployed and the SorbaFi x absorbable fixation tacks were used to secure the mesh to the anterior abdominal wall in a double c rown type orientation. The balloon deployment system was then removed, found to be intact on the simi k table and the mesh was secured to the anterior abdominal wall with a total of 45 SorbaFix absorbabl e fixation tacks with good apposition of the mesh to the anterior abdominal wall. There was no bleed ing at the end of the procedure. The patient had desufflation pressure checked and there was no blee ding from any of the structures at this point. I then proceeded to close the 12 mm trocar site using a Syed-Akhil suture passer with 0 Vicryl in interrupted fashion with good approximation of tiss ues. The abdomen was then completely desufflated under direct visualization without complication. T he main trocar site was also irrigated copiously and dried and closed with 4-0 Monocryl in a running fashion. Dermabond placed over top. The patient tolerated the procedure well without evidence of co mplication and transferred to PACU in good condition. All counts were correct at the end of the case . JACKIE/MALCOLM Voice ID: [id number] Report ID: [id number]
== END 2023-07-02 16:02 | disposition home or self-care (01) ==
LOC: OR 11:20
PROVIDERS: ATTEND Surgery
PROC: 0WUF4JZ Supplement Abdominal Wall with Synthetic Substitute, Percutaneous Endoscopic Approach (ICD-10-PCS; principal; 2023-07-02 13:45)
DX: K42.9 Umbilical hernia without obstruction or gangrene (principal); I10 Essential (primary) hypertension; E66.9 Obesity, unspecified; G47.33 Obstructive sleep apnea (adult) (pediatric); Z68.29 Body mass index [BMI] 29.0-29.9, adult
CPT/HCPCS: 93005; 80048; 36415; 49591; J2704; J2001; J2250; J1170; J3010 ×2; J2405; J7120; C1781

== ENCOUNTER 2023-12-09 17:40 | Observation (INO) | payer OTHER, BC ==
--- OUTSIDE RECORDS SUMMARY | 2023-12-09 17:45 | XMS REPORT | Clinical Summary ---
Author Name Unknown Organization [facility] Address [address] [place] [address] Care Team Providers Care Medical Scribe Name Role Phone Della Wayne MD PhD Primary Care Provider Sivakumar Laura Unavailable Nam Lozano MD Unavailable Anny Carrasco MD Unavailable Rc Ragsdale MD Unavailable Allergies No known active allergies Medications Medication Sig Dispensed Refills Start Date End Date Status allopurinol (ZYLOPRIM) 300 mg tablet Take 1 tablet (300 mg) by mouth daily. 0 Active triamterene-hydroC HLOROthiazide (MAXZIDE) 75 mg-50 mg per tablet Take 1 tablet by mouth daily. 0 Active olmesartan (BENICAR) 20 mg tablet Take 1 tablet (20 mg) by mouth daily. 0 Active rosuvastatin (CRESTOR) 5 mg tablet Take 1 tablet (5 mg) by mouth at bedtime. 0 Active finasteride (PROSCAR) 5 mg tablet Take 1 tablet (5 mg) by mouth daily. 0 Active tamsulosin (FLOMAX) 0.4 mg 24 hr capsule Take 1 capsule (0.4 mg) by mouth daily. 0 Active aspirin 81 mg EC tablet Take 1 tablet (81 mg) by mouth daily. 0 Active albuterol sulfate 90 mcg/actuation aepb Inhale by mouth as needed. 0 Active niacinamide 500 mg tabletIndications: Diffuse actinic hyperkeratosis Take 1 tablet (500 mg) by mouth 2 (two) times a day with meals. 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 12 packet 3 3 Active fluorouracil (Efudex) 5% creamIndications:D iffuse actinic hyperkeratosis Apply to the affected areas twice a day for two weeks 40 g 2 3 Active metFORMIN (GLUCOPHAGE) 500 mg tablet 0 4 Active terbinafine HCl (LamISIL) 250 mg tablet TAKE 1 TABLET BY MOUTH EVERY DAY 0 4 Active valACYclovir (VALTREX) 500 mg tablet Take 1 tablet (500 mg) by mouth daily. 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 30 tablet 0 3 02/11/20 23 fluorouracil (Efudex) 5% creamIndications:D iffuse actinic hyperkeratosis Apply to the affected areas on the left arm twice a day for 2 weeks 40 g 0 3 07/09/20 23 Discontinued(Reo rder) niacinamide 500 mg tabletIndications: Diffuse actinic hyperkeratosis Take 1 tablet (500 mg) by mouth 2 (two) times a day with meals. 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 09/16/2022 Encounters Date Type Department Care Team Description 12/03/2023 8:00 AM CONCRETE BOOM PUMP OPERATOR Procedure visit [facility] - Dermatology and [facility] [address] [place] [address], Floor 6 [place] [address] Oliver Samuels MD 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); Squamous cell carcinoma, NOS of skin of other and unspecified parts of face; Squamous cell carcinoma in situ; 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 12/03/2023 Travel 11/26/2023 Refill [facility] [address] [facility], 9th [place] [address] Rc Ragsdale MD Diffuse actinic hyperkeratosis 11/19/2023 Telephone [facility] and [facility] [address] [facility], Floor 6 [place] [address] Hermes Yu RN 11/19/2023 Telephone [facility] Derm[facility]ology and [facility] [address] [facility], Floor 6 [place] [address] Hermes Yu RN 10/30/2023 Orders Only [facility] - Dermatology and [facility] [address] [place] [address], Floor 6 [place] [address] Karlos Samuels MD 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); Squamous cell carcinoma in situ 10/24/2023 Telephone [facility] [address] [place] [address], 9th [place] [address] Craig Weldon MD 10/22/2023 8:30 AM CONCRETE BOOM PUMP OPERATOR Follow-Up [facility] [address] [place] [address], 9th [place] [address] Rc Ragsdale MD History of squamous cell carcinoma of skin (Primary Dx); Diffuse actinic hyperkeratosis; Neoplasm of uncertain behavior of skin 10/22/2023 Travel 09/28/2023 10:00 AM CONCRETE BOOM PUMP OPERATOR [facility] [address] [place] [address], [address] [place] [address] [place] [address] Della Wayne MD PhD 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) 09/28/2023 Travel 09/21/2023 3:30 PM CONCRETE BOOM PUMP OPERATOR Follow-Up [facility] [address] [place] [address], [address] [place], [place] [address]ator [place] [id number] Anny Carrasco MD Pituitary macroadenoma (Primary Dx) 09/21/2023 11:15 AM CONCRETE BOOM PUMP OPERATOR Ancillary Procedure [facility] [address] [place] [address] Selin Lambert PA Pituitary macroadenoma 09/21/2023 Travel 09/20/2023 10:34 AM CONCRETE BOOM PUMP OPERATOR - 09/20/2023 11:59 PM CONCRETE BOOM PUMP OPERATOR Hospital Encounter Main CT IMAGING [address] [place] [address], [address] 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; Pituitary macroadenoma Discharge Disposition: Home 09/17/2023 2:30 PM CONCRETE BOOM PUMP OPERATOR Follow[facility]Up [facility]erm[facility] [address] [place] [address] Main [facility], 9th [place] [address] Rc Ragsdale MD History of squamous cell carcinoma of skin (Primary Dx); Other viral wart; Diffuse actinic hyperkeratosis; Irritated basal cell papilloma; Seborrheic keratosis; Solar lentigo; Hemangioma of skin and subcutaneous tissue 09/17/2023 Travel 08/03/2023 Telephone [facility] [address] [place] [address] Main [facility], 9th [place] [address] Norma Goff MD 07/31/2023 8:00 AM CDT Procedure visit [facility] - Dermatology and Mohs [address] [facility], Floor 6 [place] [id number] Oliver Samuels MD Squamous cell carcinoma of scalp; Basal cell carcinoma of skin of right upper limb, including shoulder 07/31/2023 Documentation [facility] [address] [place] [address], 10th Floor, [place] [address] Mallorie Matthews 07/31/2023 Travel 07/27/2023 Orders Only [facility] - Dermatology and Mohs [address] [facility], Floor 6 [place] [address] Christy Ortiz MD Squamous cell carcinoma of scalp (Primary Dx) 07/19/2023 Telephone [facility] - Dermatology and Mohs [address] [facility], Floor 6 [place] [address] Hermes Yu, RN 07/09/2023 Refill [facility] [address] [place] [address] Main [facility], 9th [place] [address] Milli Lucero, RN Diffuse actinic hyperkeratosis 07/08/2023 Refill [facility] [address] [place] [address] Main dg, 9th [place] [address] Rc Ragsdale MD Diffuse actinic hyperkeratosis 06/25/2023 Telephone [facility] - [facility]atology and Mohs [address] [facility], Floor 6 [place] [address] Payton Zurita RN 06/19/2023 Orders Only [facility] and [facility] [address] [facility], Floor 6 [place] [address] Christy Ortiz MD Squamous cell carcinoma of scalp (Primary Dx) 06/18/2023 Orders Only [facility] [address] [place] [address] Main dg, 9th [place] [address] Rc Ragsdale MD Squamous cell carcinoma of scalp (Primary Dx); Basal cell carcinoma of skin of right upper limb, including shoulder 06/11/2023 3:00 PM CDT Follow-Up [facility] [address] [place] [address] Main [facility], 9th [place] [address] Rc Ragsdale MD Neoplasm of uncertain behavior of skin (Primary Dx); History of squamous cell carcinoma of skin; Diffuse actinic hyperkeratosis; Seborrheic keratosis; Solar lentigo; Hemangioma of skin and subcutaneous tissue 06/11/2023 Travel 04/10/2023 Orders Only Neuroradiology [address] [place] [id number] Barbara Brar MD 04/10/2023 Orders Only [facility] [address] [place] [address] Main [facility], 6th [place] [address] Selin Lambert PA Pituitary macroadenoma (Primary Dx) 04/06/2023 4:00 PM CDT Consult [facility] [address] [place] [address] Main [facility], 6th [place] [address] Anny Carrasco MD Pituitary mass (Primary Dx); 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; Pituitary macroadenoma 04/06/2023 2:15 PM CDT Ancillary Procedure [facility] [address], 4th [place] [address] Anny Carrasco MD Pituitary mass 04/06/2023 11:00 AM CDT - 04/06/2023 11:59 PM CDT Hospital Encounter [facility] [address] [facility], [place] [address] Anny Carrasco MD Pituitary mass Discharge Disposition: Home 04/06/2023 Travel 03/30/[address] Imaging [address], 7th [place] [address] Anita Guerra MD 03/29/2023 Orders Only [facility] [address] [place] [address], 6th [place] [address] Anny Carrasco MD Pituitary mass (Primary Dx) 03/28/2023 Orders Only [facility] [address] [place] [address], 6th [place] [address] Selin Lambert PA 03/23/2023 1:00 PM CDT [facility] [address] [place] [address], 6th [place] [address] Della Wayne MD PhD 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) 03/23/2023 Travel 03/22/2023 10:00 AM CDT - 03/22/2023 11:59 PM CDT Hospital Encounter Main CT IMAGING [address] [facility], 3rd [place] [address] Ivy Dan APRN 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 Discharge Disposition: Home 03/22/2023 9:30 AM CDT - 03/22/2023 9:59 AM CDT Hospital Encounter [facility] [address] [place] [address], [place] [address] Ivy Dan APRN 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 Discharge Disposition: Home 03/22/2023 Travel 03/20/2023 8:00 AM CDT Procedure visit [facility] and [facility] [address] [facility], Floor 6 [place] [address] Oliver Samuels MD 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); Actinic keratosis; Squamous cell carcinoma of upper extremity <Left side> [C44.629 (ICD-10-CM)] 03/20/2023 Travel 03/13/2023 Telephone [facility] Dermatology and [facility] [address] [facility], Floor 6 [place] [address] Hermes Yu RN 03/09/2023 Lab Requisition [facility] Isiah Vo MD Chan, Maren M, MD Discharge Disposition: Home 02/16/2023 Telephone [facility]IC[facility] [address] [place] [phone] Oliver Ledesma APRN Discharge Call 02/15/2023 Telephone [facility] PHYSICIAN [address] [place] [address] Yohana Anderson RN Discharge Call 02/13/2023 8:00 AM CDT Procedure visit [facility] [address] [place] [address] Oliver Samuels MD 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 [address] [place] [address] Hermes Yu RN 02/02/2023 Orders Only [facility] [address] 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 (Primary Dx) 02/02/2023 Telephone [facility] [address] [place] [address], 9th [place] [address] Santhosh Farrell MD 01/30/2023 9:30 AM CDT Consult [facility] [address] [place] [address], 9th [place] [address] Rc Ragsdale MD History of squamous cell carcinoma of skin (Primary Dx); History of malignant basal cell neoplasm of skin; Neoplasm of uncertain behavior of skin; Diffuse actinic hyperkeratosis; Actinic keratosis; Seborrheic keratosis; Solar lentigo 01/30/2023 Travel 01/11/2023 Refill [facility] [address] [place] [address], 6th Floor Elevator [place] [phone] Iyv Dan APRN 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 12/15/2022 12:50 PM CONCRETE BOOM PUMP OPERATOR - 12/15/2022 11:59 PM CONCRETE BOOM PUMP OPERATOR Hospital Encounter [facility] [address] [place] [address], 8th [place] [address] Ivy Dan APRN Ang, Rosemarie Ouano, Stephanie Perez PA 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 Discharge Disposition: Home 12/15/2022 10:00 AM CONCRETE BOOM PUMP OPERATOR [facility] [address] [place] [address], 6th [place] [address] Della Wayne MD PhD 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) 12/15/2022 Travel 12/14/2022 10:19 AM CONCRETE BOOM PUMP OPERATOR - 12/14/2022 11:59 PM CONCRETE BOOM PUMP OPERATOR Hospital Encounter Main CT IMAGING [address] [facility] Main dg, 3rd [place] [address] Della Wayne MD PhD 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 Discharge Disposition: Home 12/14/2022 10:00 AM CONCRETE BOOM PUMP OPERATOR - 12/14/2022 10:18 AM CONCRETE BOOM PUMP OPERATOR Hospital Encounter [facility] [address] [facility] Main [facility], [place] [address] Della Wayne MD PhD 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; Encounter for adjustment and management of vascular access device Discharge Disposition: Home 12/14/2022 Travel 12/13/2022 10:00 AM CONCRETE BOOM PUMP OPERATOR - 12/13/2022 11:59 PM CONCRETE BOOM PUMP OPERATOR Hospital Encounter [facility] [address] [facility] Main [facility], 8th [place] [address] Della Wayne MD PhD Discharge Disposition: Home 12/13/2022 Nurse Only [facility] [address] [facility] Main dg, 8th [place] [address] Yesenia Moore RN Encounter for adjustment and management of vascular access device (Primary Dx) after 12/09/2022 Immunizations Name Administration Dates Next Due Moderna SARS-CoV-2 Vaccination 06/01/2021,2020,12/12/2020 Surgical History Surgery Date Site/Laterality Comments COLONOSCOPY AMPUTATION left hand, ring finger- 2019 LYMPH NODE BIOPSY inguinal-2018 BONE MARROW BIOPSY 2018 Medical History Medical History Date Comments Hypertension 2000 Hyperlipidemia 2000 Hearing loss 2003 Hearing Aids Functional visual loss 2000 Wear glas ses Allergic rhinitis Seasonal Dependence on continuous pos itive airway pressure ventilation 2009 Polyp of colon Arthritis Gout 2020 Anxiety Malignant lymphoma 2013 Follicular Ly mphoma in 2018 Basal cell carcinoma of skin 2019 Sleep apnea Family History Medical History Relation Name Comments Prostate cancer Father [employer] Elder Removed pros trate Relation Name Status Comments Father [employer] Elder Social History Tobacco Use Types Packs/Day Years Used Date Smoking Tobacco: Never Smokeless Tobacco: Former Chew Quit: 06/14/2007 Tobacco Cessation:Counseling Given: Not Answered Comments:Couple of years then quit Alcohol Use Standard Drinks/Week Comments Yes 2 (1 standard drink = 0.6 oz pur e alcohol) Socially now and then Sex and Gender Information Value Date Recorded Sex Assigned at Not on file Gender Identity Not on file Sexual Orientation Not on file Job Start Date Occupation Industry Not on file Not on file Not on file Travel History Travel Start Travel End [place] 08/22/2023 09/07/2023 Obstetrics History Last Filed Vital Signs Vital Sign Reading Time Taken Comments Blood Pressure 114/71 12/03/2023 8:23 AM CONCRETE BOOM PUMP OPERATOR Pulse 85 12/03/2023 8:23 AM CONCRETE BOOM PUMP OPERATOR Temperature 36.5 C (97.7 F) 12/03/2023 8:23 AM CS T Respiratory Rate 18 12/03/2023 8:23 AM CONCRETE BOOM PUMP OPERATOR Oxygen Saturation 96% 12/03/2023 8:23 AM CONCRETE BOOM PUMP OPERATOR Inhaled Oxygen Concentration - - Weight 87.3 kg (192 lb 7.4 oz) 09/28/2023 10:07 AM CONCRETE BOOM PUMP OPERATOR Height - - Body Mass Index 32.07 09/06/2022 2:49 PM CONCRETE BOOM PUMP OPERATOR Plan of Treatment Upcoming Encounters Date Type Department Care Team Description 02/19/2024 2:45 PM CDT [facility] [address] [place] [address], 9th [place] [address] Rc Ragsdale MD [address] [place] [phone] 03/14/2024 9:30 AM CDT Appointment [facility] [address] [place] [address], [place] [address] Selin Lambert PA [address] [place] [phone] 03/14/2024 10:15 AM CDT Ancillary Procedure [facility] [address] [place] [address] Selin Lambert PA [address] [place] [phone] 03/14/2024 1:30 PM CDT Follow-Up [facility] [address] [place] [address] Main [facility], 6th [place] [address] Anny Carrasco MD [address] [place] [id number] 05/01/2024 10:00 AM CDT Appointment [facility] [address] [place] [address], [place] [address] Della Wayne MD PhD [address] [place] [phone] 05/01/2024 11:05 AM CDT Appointment Main [facility] IMAGING [address] [place] [address], 3rd [place] [address] Della Wayne MD PhD [address] [place] [phone] 10:20 AM CDT [facility] [address] [place] [address], 6th [place] [address] Della Wayne MD PhD [address] [place] [phone] Health Maintenance Due Date Last Done Comments COVID-19 Vaccination ( 23-24 season) 2023 06/01/2021, 01/09/2021, 12/12/2020 Medical Devices Implanted Type Area [employer] Device Identifier Shelf Expiration Date Model / Serial / Lot Port Port Right: Chest Description:REMOVED Dental Implant Description:x2 dental implan ts Procedures Procedure Name Priority Date/Time Associated Diagnosis Comments PATHOLOGY BIOPSY INTERPRETATION Routine 10/22/2023 8:49 AM CONCRETE BOOM PUMP OPERATOR Diffuse actinic hyperkeratosis History of squamous cell carcinoma of skin MRI PITUITARY W WO CONTRAST Routine 09/21/2023 1:16 PM CONCRETE BOOM PUMP OPERATOR Pituitary macroadenoma CT CHEST ABDOMEN PELVIS W CONTRAST Routine 09/20/2023 2:25 PM CONCRETE BOOM PUMP OPERATOR 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 CT NECK W CONTRAST LYMPHOMA Routine 09/20/2023 2:25 PM CONCRETE BOOM PUMP OPERATOR 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 HISTORICAL ABORH Routine 09/20/2023 12:0 4 PM CONCRETE BOOM PUMP OPERATOR 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 .CBC Routine 09/20/2023 10:27 AM CONCRETE BOOM PUMP OPERATOR 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 OSMOLALITY URINE Routine 09/20/2023 10:2 7 AM CONCRETE BOOM PUMP OPERATOR Pituitary macroadenoma INSULIN-LIKE GROWTH FACTOR 1 Routine 09/20/2023 10:27 AM CONCRETE BOOM PUMP OPERATOR Pituitary macroadenoma PROLACTIN Routine 09/20/2023 10:27 AM CONCRETE BOOM PUMP OPERATOR Pituitary macroadenoma FREE THYROXINE Routine 09/20/2023 10:27 AM CONCRETE BOOM PUMP OPERATOR Pituitary macroadenoma THYROID STIMULATING HORMONE Routine 09/20/2023 10:27 AM CONCRETE BOOM PUMP OPERATOR Pituitary macroadenoma CORTISOL, TOTAL Routine 09/20/2023 10:27 AM CONCRETE BOOM PUMP OPERATOR Pituitary macroadenoma ADRENOCORTICOTROPIC HORMONE Routine 09/20/2023 10:27 AM CONCRETE BOOM PUMP OPERATOR Pituitary macroadenoma TESTOSTERONE LEVEL Routine 09/20/2023 10 :27 AM CONCRETE BOOM PUMP OPERATOR Pituitary macroadenoma LUTEINIZING HORMONE Routine 09/20/2023 1 0:27 AM CONCRETE BOOM PUMP OPERATOR Pituitary macroadenoma FOLLICLE STIMULATING HORMONE LEVEL Routine 09/20/2023 10:27 AM CONCRETE BOOM PUMP OPERATOR Pituitary macroadenoma TYPE AND SCREEN Routine 09/20/2023 10:27 AM CONCRETE BOOM PUMP OPERATOR 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 PHOSPHORUS LEVEL Routine 09/20/2023 10:2 7 AM CONCRETE BOOM PUMP OPERATOR 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 MAGNESIUM LEVEL Routine 09/20/2023 10:27 AM CONCRETE BOOM PUMP OPERATOR 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 LACTATE DEHYDROGENASE Routine 09/20/2023 10:27 AM CONCRETE BOOM PUMP OPERATOR 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 URIC ACID Routine 09/20/2023 10:27 AM CONCRETE BOOM PUMP OPERATOR 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 COMPREHENSIVE METABOLIC PANEL Routine 09/20/2023 10:27 AM CONCRETE BOOM PUMP OPERATOR 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 COMPLETE BLOOD COUNT W/ DIFFERENTIAL Routine 09/20/2023 10:27 AM CONCRETE BOOM PUMP OPERATOR 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 PATHOLOGY BIOPSY INTERPRETATION Routine 07/31/2023 2:34 PM CDT Basal cell carcinoma of skin of right upper limb, including shoulder PATHOLOGY BIOPSY INTERPRETATION Routine 06/11/2023 4:06 PM CDT Neoplasm of uncertain behavior of skin MRI PITUITARY W WO CONTRAST Routine 04/06/2023 4:24 PM CDT Pituitary mass URINE SPECIFIC GRAVITY Routine 11:54 AM CDT Pituitary mass OSMOLALITY Routine 04/06/2023 11:54 AM CDT Pituitary mass OSMOLALITY URINE Routine 04/06/2023 11:5 4 AM CDT Pituitary mass SODIUM LEVEL Routine 04/06/2023 11:54 AM CDT Pituitary mass INSULIN-LIKE GROWTH FACTOR 1 Routine 04/06/2023 11:54 AM CDT Pituitary mass PROLACTIN Routine 04/06/2023 11:54 AM CDT Pituitary mass FREE THYROXINE Routine 04/06/2023 11:54 AM CDT Pituitary mass THYROID STIMULATING HORMONE Routine 04/06/2023 11:54 AM CDT Pituitary mass CORTISOL, TOTAL Routine 04/06/2023 11:54 AM CDT Pituitary mass ADRENOCORTICOTROPIC HORMONE Routine 04/06/2023 11:54 AM CDT Pituitary mass TESTOSTERONE LEVEL Routine 04/06/2023 11 :54 AM CDT Pituitary mass LUTEINIZING HORMONE Routine 04/06/2023 1 1:54 AM CDT Pituitary mass FOLLICLE STIMULATING HORMONE LEVEL Routine 04/06/2023 11:54 AM CDT Pituitary mass CT CHEST ABDOMEN PELVIS W CONTRAST LYMPHOMA Routine 03/22/2023 1:03 PM CDT 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 CT NECK W CONTRAST LYMPHOMA Routine 03/22/2023 1:03 PM CDT 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 TMP INTERPRETATION ANTIBODY SCREEN NEGATIVE Routine 03/22/2023 10:06 AM CDT CLOT EXPIRATION DATE Routine 03/22/2023 10:06 AM CDT ANTIBODY SCREEN Routine 03/22/2023 10:06 AM CDT 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 ABORH Routine 03/22/2023 10:06 AM CDT 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 FRACTIONATED BILIRUBIN Routine 10:06 AM CDT 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 TOTAL PROTEIN Routine 03/22/2023 10:06 AM CDT 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 ASPARTATE AMINOTRANSFERASE Routine 03/22 10:06 AM CDT 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 ALANINE AMINOTRANSFERASE Routine 023 10:06 AM CDT 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 ALKALINE PHOSPHATASE Routine 03/22/2023 10:06 AM CDT 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 ALBUMIN LEVEL Routine 03/22/2023 10:06 AM CDT 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 CALCIUM LEVEL Routine 03/22/2023 10:06 AM CDT 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 .GLOMERULAR FILTRATION RATE Routine 03/22/2023 10:06 AM CDT 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 SERUM CREATININE Routine 03/22/2023 10:0 6 AM CDT 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 ELECTROLYTE PANEL Routine 03/22/2023 10: 06 AM CDT 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 BLOOD UREA NITROGEN Routine 03/22/2023 1 0:06 AM CDT 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 GLUCOSE LEVEL Routine 03/22/2023 10:06 AM CDT 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 DIFFERENTIAL Routine 03/22/2023 10:06 AM CDT 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 .CBC Routine 03/22/2023 10:06 AM CDT 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 TYPE AND SCREEN Routine 03/22/2023 10:06 AM CDT 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 PHOSPHORUS LEVEL Routine 03/22/2023 10:0 6 AM CDT 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 MAGNESIUM LEVEL Routine 03/22/2023 10:06 AM CDT 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 LACTATE DEHYDROGENASE Routine 03/22/2023 10:06 AM CDT 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 URIC ACID Routine 03/22/2023 10:06 AM CDT 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 COMPREHENSIVE METABOLIC PANEL Routine 03/22/2023 10:06 AM CDT 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 COMPLETE BLOOD COUNT W/ DIFFERENTIAL Routine 03/22/2023 10:06 AM CDT 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 PATHOLOGY BIOPSY INTERPRETATION Routine 01/30/2023 9:56 AM CDT History of squamous cell carcinoma of skin CA RMVL HERON CTR VAD W/SUBQ PORT/ACUTE SPECIALIST CTR/PRPH INSJ Routine 12/15/2022 2:42 PM CONCRETE BOOM PUMP OPERATOR 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 CT CHEST ABDOMEN PELVIS W CONTRAST LYMPHOMA Routine 12/14/2022 2:08 PM CONCRETE BOOM PUMP OPERATOR 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 CT NECK W CONTRAST LYMPHOMA Routine 12/14/2022 2:08 PM CONCRETE BOOM PUMP OPERATOR 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 .GLOMERULAR FILTRATION RATE Routine 12/14/2022 10:11 AM CONCRETE BOOM PUMP OPERATOR 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 SERUM CREATININE Routine 12/14/2022 10:1 1 AM CONCRETE BOOM PUMP OPERATOR 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 DIFFERENTIAL Routine 12/14/2022 10:11 AM CONCRETE BOOM PUMP OPERATOR 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 .CBC Routine 12/14/2022 10:11 AM CONCRETE BOOM PUMP OPERATOR 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 PROTHROMBIN TIME Routine 12/14/2022 10:1 1 AM CONCRETE BOOM PUMP OPERATOR Encounter for adjustment and management of vascular access device ELECTROLYTE PANEL Routine 12/14/2022 10: 11 AM CONCRETE BOOM PUMP OPERATOR 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 ASPARTATE AMINOTRANSFERASE Routine 12/14 10:11 AM CONCRETE BOOM PUMP OPERATOR 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 MAGNESIUM LEVEL Routine 12/14/2022 10:11 AM CONCRETE BOOM PUMP OPERATOR 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 ALANINE AMINOTRANSFERASE Routine 023 10:11 AM CONCRETE BOOM PUMP OPERATOR 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 LACTATE DEHYDROGENASE Routine 12/14/2022 10:11 AM CONCRETE BOOM PUMP OPERATOR 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 ALKALINE PHOSPHATASE Routine 12/14/2022 10:11 AM CONCRETE BOOM PUMP OPERATOR 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 FRACTIONATED BILIRUBIN Routine 10:11 AM CONCRETE BOOM PUMP OPERATOR 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 URIC ACID Routine 12/14/2022 10:11 AM CONCRETE BOOM PUMP OPERATOR 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 CREATININE Routine 12/14/2022 10:11 AM CONCRETE BOOM PUMP OPERATOR 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 BLOOD UREA NITROGEN Routine 12/14/2022 1 0:11 AM CONCRETE BOOM PUMP OPERATOR 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 GLUCOSE, RANDOM Routine 12/14/2022 10:11 AM CONCRETE BOOM PUMP OPERATOR 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 PHOSPHORUS LEVEL Routine 12/14/2022 10:1 1 AM CONCRETE BOOM PUMP OPERATOR 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 CALCIUM LEVEL Routine 12/14/2022 10:11 AM CONCRETE BOOM PUMP OPERATOR 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 Submitted Clinical History A: SCC vs. BCC vs. ISK B: SCC vs. ISK vs. AK C: Macular SK vs. AMP 10/23/2023 5:13 PM [facility] Diagnosis A: Skin, right tragus, shave: FOCAL SQUAMOUS CELL CARCINOMA IN SITU, PRESENT AT TISSUE EDGES. This lesion may have arisen in association with a seborrheic keratosis. B: Skin, right medial preauricular cheek, punch: SQUAMOUS CELL CARCINOMA, MODERATELY DIFFERENTIATED INVASIVE TO RETICULAR DERMIS TUMOR THICKNESS: 1.3 MM DEPTH OF INVASION (ACCORDING TO AJCC 8TH EDITION): 1.1 MM PERINEURAL INVASION: NOT IDENTIFIED LYMPHOVASCULAR INVASION: NOT IDENTIFIED TUMOR PRESENT AT PERIPHERAL TISSUE EDGES C: Skin, right lateral preauricular cheek, shave: Macular seborrheic keratosis, present at tissue edges. See comment. 10/23/2023 5:13 PM [facility] Comment C. Multiple additional deeper tissue sections have been cut and examined. There is focal dermal fibrosis consistent with a prior trauma. If there are prior biopsies from this anatomic area, correlation is recommended. 10/23/2023 5:13 PM [facility] Gross Description A: Skin, right tragus shave: A 0.6 x 0.5 x 0.1 cm, starks skin shave. There is a lesion on the skin, 0.1 x 0.1 cm. The specimen is inked, bisected, entirely submitted in A1. ET B: Skin, right medial preauricular cheek punch: A 0.4 cm in diameter and 0.4 cm in depth, starks skin punch biopsy. The specimen is inked, bisected, entirely submitted in B1. ET C: Skin, right lateral preauricular cheek shave: A 1 x 0.7 x 0.1 cm, starks-brown skin shave. The specimen is inked, trisected, entirely submitted in C1. ET 10/23/2023 5:13 PM CONCRETE BOOM PUMP OPERATOR [facility] Disclaimer "Some tests reported here may have been developed and performance characteristics determined by [facility] Medicine. These tests have not been specifically cleared or approved by the U.S. Food and Drug Administration. If applicable, controls were reviewed and showed appropriate reactivity." 10/23/2023 5:13 PM CONCRETE BOOM PUMP OPERATOR [facility] Tissue (Skin) 10/22/2023 8:4 9 AM CONCRETE BOOM PUMP OPERATOR 10/22/2023 10:39 AM CONCRETE BOOM PUMP OPERATOR Tissue specimen (specimen) (Skin) 10/22/2023 8:56 AM CONCRETE BOOM PUMP OPERATOR 10/22/2023 10:39 AM CONCRETE BOOM PUMP OPERATOR Tissue specimen (specimen) (Skin) 10/22/2023 9:00 AM CONCRETE BOOM PUMP OPERATOR 10/22/2023 10:39 AM CONCRETE BOOM PUMP OPERATOR Rc Ragsdale MD LAB PATHOLOGY ORDERA FILIBERTO [facility] [place] [address], [place] * MRI Pituitary with and without Contrast (09/21/2023 1:16 PM CONCRETE BOOM PUMP OPERATOR) Only the most recent of2 resultswithin the time period is included. Anatomical Region Laterality Modality Head Magnetic Resonan ce 09/21/2023 1:26 PM CONCRETE BOOM PUMP OPERATOR Impressions 09/21/2023 1:43 PM CONCRETE BOOM PUMP OPERATOR Stable presumed pituitary adenoma with right cavernous sinus involvement. ACTIONABLE ITEMS/RECOMMENDATIONS: None. Narrative 09/21/2023 1:43 PM CONCRETE BOOM PUMP OPERATOR FULL RESULT: Examination: MRI PITUITARY W WO CONTRAST on 09/21/2023 1:16 PM. CLINICAL HISTORY: Pituitary macroadenoma INDICATION: pituitary macroadenoma COMPARISON: 04/06/2023 MRI. TECHNIQUE: Pre and postcontrast MR images of the pituitary gland and sella were obtained. FINDINGS: Sella: There is a 1.0 x 1.1 x 1.3 cm (craniocaudal by anteroposterior by transverse dimension) area of hypoenhancement in the midline and right aspect of the pituitary gland that extends into the right cavernous sinus (Knosp grade 2). The posterior pituitary bright spot is not visualized. There are no focal suprasellar masses. The infundibulum is midline. The optic apparatus appears normal. The cavernous sinuses appear normal. Brain: The visualized brain is unremarkable. Procedure Note Swetha Tejeda MD - 09/21/2023 FULL RESULT: Examination: MRI PITUITARY W WO CONTRAST on 09/21/2023 1:16 PM. CLINICAL HISTORY: Pituitary macroadenoma INDICATION: pituitary macroadenoma COMPARISON: 04/06/2023 MRI. TECHNIQUE: Pre and postcontrast MR images of the pituitary gland and sellawere obtained. FINDINGS: Sella: There is a 1.0 x 1.1 x 1.3 cm (craniocaudal by anteroposterior bytransverse dimension) area of hypoenhancement in the midline and rightaspect of the pituitary gland that extends into the right cavernous sinus(Knosp grade 2). The posterior pituitary bright spot is not visualized.There are no focal suprasellar masses. The infundibulum is midline. Theoptic apparatus appears normal. The cavernous sinuses appear normal. Brain: The visualized brain is unremarkable. IMPRESSION: Stable presumed pituitary adenoma with right cavernous sinusinvolvement. ACTIONABLE ITEMS/RECOMMENDATIONS: None. Selin LOPEZ IMMitra MRI ORDERABLE S * CT Neck with Contrast Lymphoma (09/20/2023 2:25 PM CONCRETE BOOM PUMP OPERATOR) Only the most recent of3 resultswithin the time period is included. Anatomical Region Laterality Modality Neck Computed Tomogra phy 09/20/2023 6:16 PM CONCRETE BOOM PUMP OPERATOR Impressions 09/20/2023 6:21 PM CONCRETE BOOM PUMP OPERATOR 1. No cervical lymphadenopathy. 2. No acute sinusitis. ACTIONABLE ITEMS/RECOMMENDATIONS: None. Narrative 09/20/2023 6:21 PM CONCRETE BOOM PUMP OPERATOR FULL RESULT: Examination: CT NECK W CONTRAST LYMPHOMA on 09/20/2023 2:25 PM. 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 Pituitary MRI 04/06/2023. TECHNIQUE: CT neck with IV contrast was performed. FINDINGS: Lymph nodes: No cervical lymphadenopathy is present. Other findings: The upper aerodigestive tract is unremarkable. The major salivary glands are unremarkable. The thyroid gland is normal is appearance. The visualized paranasal sinuses are predominantly clear. No aggressive osseous lesions are identified. The cervical arteries and veins are patent. The area of hypoattenuation at the right aspect of the pituitary gland is unchanged and better evaluated on a recent pituitary MRI from 04/06/2023. The visualized lung apices are clear. Procedure Note Kinga Durand MD - 09/20/2023 FULL RESULT: Examination: CT NECK W CONTRAST LYMPHOMA on 09/20/2023 2:25 PM. CLINICAL HISTORY: Follicular lymphoma grade II of lymph nodes of multiplesites INDICATION: Restaging COMPARISON: Neck CT 03/22/2023. Pituitary MRI 04/06/2023. TECHNIQUE: CT neck with IV contrast was performed. FINDINGS: Lymph nodes: No cervical lymphadenopathy is present. Other findings: The upper aerodigestive tract is unremarkable. The major salivary glands are unremarkable. The thyroid gland is normal is appearance. The visualized paranasal sinuses are predominantly clear. No aggressiveosseous lesions are identified. The cervical arteries and veins are patent. The area of hypoattenuation at the right aspect of the pituitary gland isunchanged and better evaluated on a recent pituitary MRI from04/06/2023. The visualized lung apices are clear. IMPRESSION: 1. No cervical lymphadenopathy. 2. No acute sinusitis. ACTIONABLE ITEMS/RECOMMENDATIONS: None. Ivy Dan APRN IMG CT ORDERAB LES * CT Chest Abdomen Pelvis with Contrast (09/20/2023 2:25 PM CONCRETE BOOM PUMP OPERATOR) Anatomical Region Laterality Modality Abdomen, Pelvis, Chest Computed Tomography 09/20/2023 2:54 PM CONCRETE BOOM PUMP OPERATOR Impressions 09/20/2023 4:08 PM CONCRETE BOOM PUMP OPERATOR 1. Groundglass opacities in the right lower lobe are slightly more prominent when compared to the previous CT and this may be related to a mild infectious/inflammatory process. Please clinically. 2. Stable posterior mediastinal soft tissue thickening and stable small volume retroperitoneal and mesenteric lymph nodes and stranding of the mesenteric fat likely related to treated disease. 3. No new adenopathy. 4. Stable mild enlargement of the spleen. ACTIONABLE ITEMS/RECOMMENDATIONS: See Impression Narrative 09/20/2023 4:08 PM CONCRETE BOOM PUMP OPERATOR FULL RESULT: Examination: CT CHEST ABDOMEN PELVIS W CONTRAST on 09/20/2023 2:25 PM. 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 Technique: CT CHEST ABDOMEN PELVIS W CONTRAST. Findings: CHEST: Lungs and Pleura: Groundglass opacities seen in the posterior right lower lobe are more prominent than when compared to previous CT from 03/22/2023 and this may be related to a mild infectious/pulmonary process. Please correlate clinically. No pleural effusion. Stable appearance of the elevated right hemidiaphragm with atelectasis at the right lung base. Cardiomediastinum: The heart is normal in size. No pericardial effusion. Lymph nodes: No significant change in the posterior mediastinal soft tissue thickening measuring 2.5 cm in diameter (series 4 image 94). No hilar or axillary adenopathy. ABDOMEN AND PELVIS: Hepatobiliary: No suspicious hepatic lesion. Subcentimeter hypodensities in the liver likely small cysts. The gallbladder is present. Spleen: Stable mild splenomegaly. Pancreas: No mass or ductal dilatation. Adrenal Glands: No mass. Kidneys, Ureters, Bladder: No hydronephrosis. A 7 mm stone is again seen the urinary bladder. Gastrointestinal Tract: No obstruction. Colonic diverticula. Pelvic Organs: Enlarged prostate gland. Peritoneum/Retroperitoneum: Trace amount of fluid in the right lower quadrant. At the sclerotic disease of the abdominal aorta and its branches. Lymph Nodes: Stable appearance of the subcentimeter retroperitoneal and mesenteric lymph nodes associated with some stranding of the mesenteric fat. For example, lymph node seen anterior to the inferior vena cava measuring 9 mm and short axis (image 259) is stable. No new adenopathy. MUSCULOSKELETAL: Degenerative changes of the spine. Procedure Note Loren Tabor MD - 09/20/2023 FULL RESULT: Examination: CT CHEST ABDOMEN PELVIS W CONTRAST on 09/20/2023 2:25 PM. Clinical History: Follicular lymphoma grade II of lymph nodes of multiplesites Indication: Cancer staging or restaging Comparison: 03/22/2023. Technique: CT CHEST ABDOMEN PELVIS W CONTRAST. Findings: CHEST: Lungs and Pleura: Groundglass opacities seen in the posterior right lowerlobe are more prominent than when compared to previous CT from 03/22/2023nd this may be related to a mild infectious/pulmonary process. Pleasecorrelate clinically. No pleural effusion. Stable appearance of the elevated right hemidiaphragm with atelectasis atthe right lung base. Cardiomediastinum: The heart is normal in size. No pericardial effusion. Lymph nodes: No significant change in the posterior mediastinal softtissue thickening measuring 2.5 cm in diameter (series 4 image 94). Nohilar or axillary adenopathy. ABDOMEN AND PELVIS: Hepatobiliary: No suspicious hepatic lesion. Subcentimeter hypodensitiesin the liver likely small cysts. The gallbladder is present. Spleen: Stable mild splenomegaly. Pancreas: No mass or ductal dilatation. Adrenal Glands: No mass. Kidneys, Ureters, Bladder: No hydronephrosis. A 7 mm stone is again seen the urinary bladder. Gastrointestinal Tract: No obstruction. Colonic diverticula. Pelvic Organs: Enlarged prostate gland. Peritoneum/Retroperitoneum: Trace amount of fluid in the right lowerquadrant. At the sclerotic disease of the abdominal aorta and its branches. Lymph Nodes: Stable appearance of the subcentimeter retroperitoneal andmesenteric lymph nodes associated with some stranding of the mesentericfat. For example, lymph node seen anterior to the inferior vena cavameasuring 9 mm and short axis (image 259) is stable. No new adenopathy. MUSCULOSKELETAL: Degenerative changes of the spine. IMPRESSION: 1. Groundglass opacities in the right lower lobe are slightly moreprominent when compared to the previous CT and this may be related to amild infectious/inflammatory process. Please clinically. 2. Stable posterior mediastinal soft tissue thickening and stable smallvolume retroperitoneal and mesenteric lymph nodes and stranding of themesenteric fat likely related to treated disease. 3. No new adenopathy. 4. Stable mild enlargement of the spleen. ACTIONABLE ITEMS/RECOMMENDATIONS: See Impression Karmila Dye Dan RAIL EQUIPMENT OPERATOR IMG CT ORDERAB LES * Historical ABORh (09/20/2023 12:04 PM CONCRETE BOOM PUMP OPERATOR) ABORh O POS 09/20/2023 12:04 PM CONCRETE BOOM PUMP OPERATOR [facility] Blood Peripheral blood specimen / Unknown 09/20/2023 12:04 PM CONCRETE BOOM PUMP OPERATOR 09/20/2023 12:04 PM CONCRETE BOOM PUMP OPERATOR Ivy Hardik Dan RAIL EQUIPMENT OPERATOR BLOOD BANK SERGIO T ORDERABLES [facility] [address] [facility] [id number] [place] [address] * (ABNORMAL) .CBC (09/20/2023 10:27 AM CONCRETE BOOM PUMP OPERATOR) Only the most recent of3 resultswithin the time period is included. White Blood Cell 4.9 4.1 - 10.5 K/uL 09/20/2023 11:16 AM [facility] Comment:This result was prev iously suppressed from the chart. Red Blood Cell 4.56 4.30 - 6.04 M/uL 09/20/2023 11:16 AM [facility] Hemoglobin 14.6 13.3 - 17.4 g/dL 09/20/2023 11:16 AM [facility] Hematocrit 42.9 39.5 - 51.8 % 09/20/2023 11:16 AM [facility] Mean Cell Volume 94 82 - 99 fL 09/20/2023 11:16 AM [facility] Mean Cell Hemoglobin 32.0 26.6 - 33.2 pg 09/20/2023 11:16 AM [facility] Mean Cell Hemoglobin Concentration 34.0 31.1 - 35.2 g/dL 09/20/2023 11:16 AM [facility] RDW-SD 48.3 37.5 - 49.7 fL 09/20/2023 11:16 AM [facility] Red Cell Diameter Width 13.9 11.6 - 15.5 % 09/20/2023 11:16 AM [facility] Platelet 103(L) 160 - 397 K/uL 09/20/2023 11:16 AM [facility] Comment:This result was prev iously suppressed from the chart. Mean Platelet Volume 10.7 9.1 - 12.6 fL 09/20/2023 11:16 AM [facility] Comment:This result was prev iously suppressed from the chart. INRBC 0.0 0.0 - 0.1 /100 WBC 09/20/2023 11:16 AM [facility] Comment: The INRBC (instrument NRBC) value reflects the enumeration of nucleated red blood cells contained in a 200uL sample of whole blood analyzed by the instrument. This value may differ from the NRBC value reported in a manual differential, which is based on a 100 cell differential. This result was previously suppressed from the chart. Neutrophil % 74.1(H) 43.2 - 72.7 % 09/20/2023 11:16 AM [facility] Comment:This result was prev iously suppressed from the chart. Lymphocyte % 15.8(L) 16.8 - 46.2 % 09/20/2023 11:16 AM [facility] Comment:This result was prev iously suppressed from the chart. Monocyte % 7.1 5.1 - 12.5 % 09/20/2023 11:16 AM [facility] Comment:This result was prev iously suppressed from the chart. Eosinophil % 2.0 0.4 - 6.3 % 09/20/2023 11:16 AM [facility] Comment:This result was prev iously suppressed from the chart. Basophil % 0.4 0.2 - 1.4 % 09/20/2023 11:16 AM [facility] Comment:This result was prev iously suppressed from the chart. IGRE % 0.6 0.1 - 1.5 % 09/20/2023 11:16 AM [facility] Comment: The IGRE% includes Metamyelocytes, Myelocytes and Promyelocytes. This result was previously suppressed from the chart. Neutrophil Abs 3.65 1.95 - 7.25 K/uL 09/20/2023 11:16 AM [facility] Comment:This result was prev iously suppressed from the chart. Lymphocyte Abs 0.78(L) 1.01 - 3.24 K/uL 09/20/2023 11:16 AM CONCRETE BOOM PUMP OPERATOR [facility] Comment:This result was prev iously suppressed from the chart. Monocyte Abs 0.35 0.24 - 0.85 K/uL 09/20/2023 11:16 AM CONCRETE BOOM PUMP OPERATOR [facility] Comment:This result was prev iously suppressed from the chart. Eosinophil Abs 0.10 0.02 - 0.50 K/uL 09/20/2023 11:16 AM CONCRETE BOOM PUMP OPERATOR [facility] Comment:This result was prev iously suppressed from the chart. Basophil Abs 0.02 0.02 - 0.09 K/uL 09/20/2023 11:16 AM CONCRETE BOOM PUMP OPERATOR [facility] Comment:This result was prev iously suppressed from the chart. IG Abs 0.03 0.01 - 0.12 K/uL 09/20/2023 11:16 AM [facility] Comment:This result was prev iously suppressed from the chart. Blood Venipuncture / Unknown 09/20/2023 10:27 AM CONCRETE BOOM PUMP OPERATOR 09/20/2023 10:50 AM [facility] Ivy Hardik Dan APRN LAB BLOOD ETELVINA HSIEH [facility] Unless otherwise noted, all lab tests performed by: Division of Pathology and Laboratory Medicine [address] [place] [id number] * Insulin-Like Growth Factor I (09/20/2023 10:27 AM [facility]) Only the most recent of2 resultswithin the time period is included. Pathologist [facility] IGF-1, LC/MS, S 104 32 - 209 ng/mL 09/25/2023 3:07 PM [facility] IGF Z-score 0.00 -2.0 - 2.0 SD 09/25/2023 3:07 PM [facility] Comment: ADDITIONAL INFORMATION This test was developed and its performance characteristics determined by [facility] in a manner consistent with CLIA requirements. This test has not been cleared or approved by the U.S. Food and Drug Administration. Test Performed by: [facility] [address] [place] [address] Web Press Roll Tender: Riley Hernandez M.D. Ph.D.; CLIA# [id number] Blood Venipuncture / Unknown 09/20/2023 10:27 AM CONCRETE BOOM PUMP OPERATOR 09/20/2023 10:50 AM CONCRETE BOOM PUMP OPERATOR Selin LOPEZ LAB BLOOD ORDERAB LES [facility] * (ABNORMAL) Comprehensive Metabolic Panel (09/20/2023 10:27 AM [facility]) Bilirubin Total 0.5 <=1.2 mg/dL 09/20/2023 11:38 AM [facility] Comment: Indocyanine Green (ICG) may cause falsely elevated bilirubin results. Total and direct bilirubin must not be measured from samples containing indocyanine green. False elevation of total bilirubin can be seen in patients with IgG concentrations above 28 g/L. This result was previously suppressed from the chart. Bilirubin Direct <0.2 <=0.3 mg/dL 09/20/2023 11:38 AM [facility] Comment: Indocyanine Green (ICG) may cause falsely elevated bilirubin results. Total and direct bilirubin must not be measured from samples containing indocyanine green. This result was previously suppressed from the chart. Bilirubin Indirect 2022 11:38 AM [facility] Comment:Unable to calculate Indirect Bilirubin result due to some parameters are outside reportable range eGFR 85 >=60 mL/min/1. 73 sq. m 09/20/2023 11:38 AM [facility] Comment: The eGFRcr is calculated with the 2020 CKD-EPI creatinine equation using creatinine, patient's age, and sex for adults 18 years of age and older. Other factors, especially muscle mass, may affect accuracy and need to be considered. According to the Kidney Disease: Improving Global Outcomes (KDIGO) CKD Work Group 2012 Clinical Practice Guideline, chronic kidney disease (CKD) is defined as the abnormalities of kidney structure or function, present for more than 3 months, with implications for health. CKD should be classified by cause, GFR category, and albuminuria category. KDIGO guidelines provide the following GFR categories. Stage / Description / GFR mL/min/1.73 m2: G1* / Normal or high / >= 90 G2* / Mildly decreased / 60-89 G3a / Mildly to moderately decreased / 45-59 G3b / Moderately to severely decreased / 30-44 G4 / Severely decreased / 15-29 G5 / Kidney failure / <15 *In the absence of evidence of kidney damage, neither G1 nor G2 fulfill criteria for CKD. Tot Protein 6.6 6.4 - 8.3 gm/dL 09/20/2023 11:38 AM [facility] Comment:This result was prev iously suppressed from the chart. Calcium Level Total 9.6 8.2 - 10.2 mg/dL 09/20/2023 11:38 AM [facility] Comment:This result was prev iously suppressed from the chart. Alkaline Phosphatase 70 40 - 129 U/L 09/20/2023 11:38 AM [facility] Comment:This result was prev iously suppressed from the chart. Albumin Level 4.6 3.5 - 5.2 gm/dL 09/20/2023 11:38 AM [facility] Comment:This result was prev iously suppressed from the chart. AST 16 <=40 U/L 09/20/2023 11:38 AM [facility] Comment:This result was prev iously suppressed from the chart. ALT 23 <=41 U/L 09/20/2023 11:38 AM [facility] Comment:This result was prev iously suppressed from the chart. Sodium Level 140 136 - 145 mmol/L 09/20/2023 11:38 AM [facility] Comment:This result was prev iously suppressed from the chart. Potassium Level 4.1 3.4 - 4.5 mmol/L 09/20/2023 11:38 AM [facility] Comment:This result was prev iously suppressed from the chart. Chloride 103 98 - 107 mmol/L 09/20/2023 11:38 AM [facility] Comment:This result was prev iously suppressed from the chart. CO2 31(H) 22 - 29 mmol/L 09/20/2023 11:38 AM [facility] Comment:This result was prev iously suppressed from the chart. Anion Gap 6 4 - 14 mmol/L 09/20/2023 11:38 AM [facility] Comment:This result was prev iously suppressed from the chart. Creatinine 0.96 0.67 - 1.17 mg/dL 09/20/2023 11:38 AM [facility] Comment:This result was prev iously suppressed from the chart. BUN 11 6 - 23 mg/dL 09/20/2023 11:38 AM [facility] Comment:This result was prev iously suppressed from the chart. Glucose Level 158(H) 70 - 99 mg/dL 09/20/2023 11:38 AM [facility] Comment: Effective 05/10/16, the glucose reference intervals have been updated based on [place] guidelines (Standards of Medical Care in Diabetes 2016. Diabetes Care 2016; 39: S13-S22). Fasting blood glucose: Normal: 70-99 mg/dL Impaired fasting glucose (increased risk for diabetes or pre-diabetes): 100-125 mg/dL Diabetes mellitus: >/=126 mg/dL Random blood glucose: Normal: 70-199 mg/dL Note: Random glucose >100 mg/dL is associated with increased risk for diabetes. This result was previously suppressed from the chart. Blood Venipuncture / Unknown 09/20/2023 10:27 AM CONCRETE BOOM PUMP OPERATOR 09/20/2023 10:50 AM [facility] Ivy Dan APRN LAB BLOOD ETELVINA HSIEH [facility] Unless otherwise noted, all lab tests performed by: Division of Pathology and Laboratory Medicine [address] [place] [id number] * ACTH (09/20/2023 10:27 AM [facility]) Only the most recent of2 resultswithin the time period is included. ACTH 37 7 - 63 pg/mL 09/20/2023 1:55 PM CONCRETE BOOM PUMP OPERATOR [facility] Blood Venipuncture / Unknown 09/20/2023 10:27 AM CONCRETE BOOM PUMP OPERATOR 09/20/2023 10:51 AM CONCRETE BOOM PUMP OPERATOR Narrative [facility] - 09/20/2023 1:55 PM CONCRETE BOOM PUMP OPERATOR Reference range established based on adult population (7 - 10am draws). No established reference values for p.m. draws. Results greater than 1826 pg/mL may not be reliable due to matrix effect with extended dilution as it exceeds the lower school spanish teacher's recommended limit. ACTH reference intervals are established for the morning hours from 7-10 am. Due to the circadian rhythm of ACTH levels in plasma, the sample collection time must be noted. Caution should be exercised when interpreting such values and done in conjunction with clinical context. Selin LOPEZ LAB BLOOD ORDERAB LES Performing Organization Address [facility] de Phone Number [facility] Unless otherwise noted, all lab tests performed by: Division of Pathology and Laboratory Medicine [address] [place] [id number] * Osmolality Urine (09/20/2023 10:27 AM CONCRETE BOOM PUMP OPERATOR) Only the most recent of2 resultswithin the time period is included. Urine Osmolality 800 50 - 1,400 mOsm/kg H2O 09/20/2023 12:01 PM CONCRETE BOOM PUMP OPERATOR [facility] Comment:Urinary osmolality m ay vary widely, depending on the state of hydration. Random urine osmolality can range from 50 to 1400 mOsm/kg H2O depending on fluid intake. In individuals on average fluid intake, urine osmolality is typically 300-900 mOsm/kg H2O. Units of measure: mOsm per Kg of water. Urine (Urine Clean Catch) Non-blood Collection / Unknown 09/20/2023 10:27 AM CONCRETE BOOM PUMP OPERATOR 09/20/2023 10:35 AM CONCRETE BOOM PUMP OPERATOR Selin LOPEZ URINE ORDERABLES Performing Organization Address [facility] Co de Phone Number [facility] Unless otherwise noted, all lab tests performed by: Division of Pathology and Laboratory Medicine [address] [place] [id number] * Prolactin (09/20/2023 10:27 AM CONCRETE BOOM PUMP OPERATOR) Only the most recent of2 resultswithin the time period is included. Prolactin Level 8.4 4.0 - 15.2 ng/mL 09/20/2023 11:57 AM CONCRETE BOOM PUMP OPERATOR [facility] Blood Venipuncture / Unknown 09/20/2023 10:27 AM CONCRETE BOOM PUMP OPERATOR 09/20/2023 10:50 AM CONCRETE BOOM PUMP OPERATOR Narrative [facility] - 09/20/2023 11:57 AM CONCRETE BOOM PUMP OPERATOR Results greater than 4700.0 ng/mL may not be reliable due to matrix effect with extended dilution as it exceeds the lower school spanish teacher s recommended limit. Caution should be exercised when interpreting such values and done in conjunction with clinical context. Selin LOPEZ LAB BLOOD ORDERAB LES [facility] Unless otherwise noted, all lab tests performed by: Division of Pathology and Laboratory Medicine [address] [place] [id number] * Type and Screen (09/20/2023 10:27 AM CONCRETE BOOM PUMP OPERATOR) Pathologist [facility] ABORh O POS 09/20/2023 10:14 AM CONCRETE BOOM PUMP OPERATOR [facility] ABSC Negative 09/20/2023 10:14 AM CONCRETE BOOM PUMP OPERATOR [facility] Clot Expiration 09/23/2023 23:59 09/20/2023 10:14 AM CONCRETE BOOM PUMP OPERATOR [facility] Historical Record Check Complete 09/20/2023 10:14 AM CONCRETE BOOM PUMP OPERATOR [facility] Blood Venipuncture / Unknown 09/20/2023 10:27 AM CONCRETE BOOM PUMP OPERATOR 09/20/2023 10:50 AM CONCRETE BOOM PUMP OPERATOR Ivy Dan RAIL EQUIPMENT OPERATOR BLOOD BANK SERGIO T ORDERABLES [facility] [address] [place] [address] [id number] [place] [address] * Uric Acid (09/20/2023 10:27 AM CONCRETE BOOM PUMP OPERATOR) Only the most recent of3 resultswithin the time period is included. Pathologist [facility] Uric Acid 3.4 3.4 - 7.0 mg/dL 09/20/2023 11:37 AM CONCRETE BOOM PUMP OPERATOR [facility] Blood Venipuncture / Unknown 09/20/2023 10:27 AM CONCRETE BOOM PUMP OPERATOR 09/20/2023 10:50 AM CONCRETE BOOM PUMP OPERATOR Ivy Hardik Dan RAIL EQUIPMENT OPERATOR LAB BLOOD ORDE RABLES Performing Organization Address City/[facility]/ZIP Co de Phone Number [facility] Unless otherwise noted, all lab tests performed by: Division of Pathology and Laboratory Medicine [address] [place] [id number] * TSH (09/20/2023 10:27 AM CONCRETE BOOM PUMP OPERATOR) Only the most recent of2 resultswithin the time period is included. Thyroid Stimulating Hormone 1.82 0.27 - 4.20 mcunit/mL 09/20/2023 11:56 AM CONCRETE BOOM PUMP OPERATOR [facility] Blood Venipuncture / Unknown 09/20/2023 10:27 AM CONCRETE BOOM PUMP OPERATOR 09/20/2023 10:50 AM CONCRETE BOOM PUMP OPERATOR Selin LOPEZ LAB BLOOD ORDERAB LES Performing Organization Address [facility] de Phone Number [facility] Unless otherwise noted, all lab tests performed by: Division of Pathology and Laboratory Medicine [address] [place] [id number] * Free T4 (09/20/2023 10:27 AM CONCRETE BOOM PUMP OPERATOR) Only the most recent of2 resultswithin the time period is included. T4 (Thyroxine) Free 1.12 0.93 - 1.70 ng/dL 09/20/2023 11:56 AM CONCRETE BOOM PUMP OPERATOR [facility] Blood Venipuncture / Unknown 09/20/2023 10:27 AM CONCRETE BOOM PUMP OPERATOR 09/20/2023 10:50 AM CONCRETE BOOM PUMP OPERATOR Selin LOPEZ LAB BLOOD ORDERAB LES [facility] Unless otherwise noted, all lab tests performed by: Division of Pathology and Laboratory Medicine [address] [place] [address] [place] [address] * Testosterone (09/20/2023 10:27 AM CONCRETE BOOM PUMP OPERATOR) Only the most recent of2 resultswithin the time period is included. Testosterone Total 300 193 - 740 ng/dL 09/20/2023 11:57 AM CONCRETE BOOM PUMP OPERATOR [facility] Blood Venipuncture / Unknown 09/20/2023 10:27 AM CONCRETE BOOM PUMP OPERATOR 09/20/2023 10:50 AM CONCRETE BOOM PUMP OPERATOR Narrative [facility] - 09/20/2023 11:57 AM CONCRETE BOOM PUMP OPERATOR Reference Ranges: Male: Age 20 - 49 249 - 836 Age >=50 193 - 740 Female: Age 20 - 49 8 - 48 Age >=50 3 - 41 Selin LOPEZ LAB BLOOD ORDERAB LES [facility] Unless otherwise noted, all lab tests performed by: Division of Pathology and Laboratory Medicine [address] [place] [address] * Phosphorus Level (09/20/2023 10:27 AM CONCRETE BOOM PUMP OPERATOR) Only the most recent of3 resultswithin the time period is included. Phosphorus Level 2.7 2.5 - 4.5 mg/dL 09/20/2023 11:37 AM CONCRETE BOOM PUMP OPERATOR [facility] Blood Venipuncture / Unknown 09/20/2023 10:27 AM CONCRETE BOOM PUMP OPERATOR 09/20/2023 10:50 AM CONCRETE BOOM PUMP OPERATOR Ivy Dan APRN LAB BLOOD ORDE RABLES [facility] Unless otherwise noted, all lab tests performed by: Division of Pathology and Laboratory Medicine [address] [place] [id number] * Magnesium Level (09/20/2023 10:27 AM CONCRETE BOOM PUMP OPERATOR) Only the most recent of3 resultswithin the time period is included. Magnesium Level 1.9 1.6 - 2.6 mg/dL 09/20/2023 11:37 AM CONCRETE BOOM PUMP OPERATOR [facility] Blood Venipuncture / Unknown 09/20/2023 10:27 AM CONCRETE BOOM PUMP OPERATOR 09/20/2023 10:50 AM CONCRETE BOOM PUMP OPERATOR Ivy Dan APRN LAB BLOOD ORDMilo THAPAJIM Performing Organization Address [facility] de Phone Number [facility] Unless otherwise noted, all lab tests performed by: Division of Pathology and Laboratory Medicine [address] [place] [id number] * LDH (09/20/2023 10:27 AM CONCRETE BOOM PUMP OPERATOR) Only the most recent of3 resultswithin the time period is included. LDH 149 135 - 225 U/L 09/20/2023 12:33 PM CONCRETE BOOM PUMP OPERATOR [facility] Blood Venipuncture / Unknown 09/20/2023 10:27 AM CONCRETE BOOM PUMP OPERATOR 09/20/2023 10:50 AM CONCRETE BOOM PUMP OPERATOR Narrative [facility] - 09/20/2023 12:33 PM CONCRETE BOOM PUMP OPERATOR Results greater than 1651 U/L may not be reliable due to matrix effect with extended dilution as it exceeds the lower school spanish teacher's recommended limit. Caution should be exercised when interpreting such values and done in conjunction with clinical context. Ivy Dan APRN LAB BLOOD ETELVINA HSIEH Performing Organization Address [facility] de Phone Number [facility] Unless otherwise noted, all lab tests performed by: Division of Pathology and Laboratory Medicine [address] [place] [phone] * (ABNORMAL) LH (09/20/2023 10:27 AM CONCRETE BOOM PUMP OPERATOR) Only the most recent of2 resultswithin the time period is included. Luteinizing Hormone 8.9(H) 1.7 - 8.6 mIU/mL 09/20/2023 11:57 AM CONCRETE BOOM PUMP OPERATOR [facility] Blood Venipuncture / Unknown 09/20/2023 10:27 AM CONCRETE BOOM PUMP OPERATOR 09/20/2023 10:50 AM CONCRETE BOOM PUMP OPERATOR Narrative [facility] - 09/20/2023 11:57 AM CONCRETE BOOM PUMP OPERATOR Reference range established based on adult population Selin LOPEZ LAB BLOOD ORDERAB LES Performing Organization Address City/[facility]/ZIP Co de Phone Number [facility] Unless otherwise noted, all lab tests performed by: Division of Pathology and Laboratory Medicine [address] [place] [id number] * (ABNORMAL) FSH Level (09/20/2023 10:27 AM CONCRETE BOOM PUMP OPERATOR) Only the most recent of2 resultswithin the time period is included. Follicle Stimulating Hormone 13.2(H) 1.5 - 12.4 mIU/mL 09/20/2023 11:57 AM CONCRETE BOOM PUMP OPERATOR [facility] Blood Venipuncture / Unknown 09/20/2023 10:27 AM CONCRETE BOOM PUMP OPERATOR 09/20/2023 10:50 AM CONCRETE BOOM PUMP OPERATOR Narrative [facility] - 09/20/2023 11:57 AM CONCRETE BOOM PUMP OPERATOR Reference range established based on adult population Selin LOPEZ LAB BLOOD ORDERAB LES Performing Organization Address [facility] Co de Phone Number [facility] Unless otherwise noted, all lab tests performed by: Division of Pathology and Laboratory Medicine [address] [place] [phone] * Cortisol, Total (09/20/2023 10:27 AM CONCRETE BOOM PUMP OPERATOR) Only the most recent of2 resultswithin the time period is included. Cortisol 9.96 mcg/dL 09/20/2023 11:56 AM CONCRETE BOOM PUMP OPERATOR [facility] Blood Venipuncture / Unknown 09/20/2023 10:27 AM CONCRETE BOOM PUMP OPERATOR 09/20/2023 10:50 AM CONCRETE BOOM PUMP OPERATOR Narrative [facility] - 09/20/2023 11:56 AM CONCRETE BOOM PUMP OPERATOR Cortisol reference intervals are established for the morning hours from 6-10 am and afternoon hours 4-8 pm. Due to circadian rhythm of cortisol levels in serum and plasma, the sample collection time must be noted. Caution should be exercised when interpreting such values and done in conjunction with clinical context. Serum Cortisol Reference Ranges for >/= 21 years old: Morning (6-10 am): 4.82 - 19.5 mcg/dL Afternoon (4-8 pm): 2.47 - 11.9 mcg/dL Selin LOPEZ LAB BLOOD ORDERAB LES [facility] Unless otherwise noted, all lab tests performed by: Division of Pathology and Laboratory Medicine [address] [place] [phone] * U Sp Grav (04/06/2023 11:54 AM CDT) Pathologist [facility] UA Spec Grav 1.030 1.003 - 1.035 [facility] Urine 04/06/2023 11:5 4 AM CDT 04/06/2023 12:18 PM CDT Narrative [facility] - 04/06/2023 12:49 PM CDT Pre-clinic endo labs DO NOT have to be fasting AM (as patient is coming from out of town). Anny Carrasco MD URINE ORDERABLES Performing Organization Address [facility] Co de Phone Number [facility] Unless otherwise noted, all lab tests performed by: Division of Pathology and Laboratory Medicine [address] [place] [address]89 * Sodium Level (04/06/2023 11:54 AM CDT) [facility] Sodium Lvl 139 136 - 145 mEq/L [facility] Blood 04/06/2023 11:5 4 AM CDT 04/06/2023 12:02 PM CDT Narrative [facility] - 04/06/2023 12:37 PM CDT Pre-clinic endo labs DO NOT have to be fasting AM (as patient is coming from out of town). Anny Carrasco MD LAB BLOOD ORDERABLES [facility] Unless otherwise noted, all lab tests performed by: Division of Pathology and Laboratory Medicine [address] [place] [address]10 * Osmolality (04/06/2023 11:54 AM CDT) [facility] Osmolality 292 275 - 300 mOsm/kg H2O [facility] Comment:Units in mOsm per kg of water. Blood 04/06/2023 11:5 4 AM CDT 04/06/2023 12:09 PM CDT Narrative [facility] - 04/06/2023 12:45 PM CDT Pre-clinic endo labs DO NOT have to be fasting AM (as patient is coming from out of town). Anny Carrasco MD LAB BLOOD ORDERABLES [facility] Unless otherwise noted, all lab tests performed by: Division of Pathology and Laboratory Medicine [address] [place] [address] * CT Chest Abdomen Pelvis with Contrast Lymphoma (03/22/2023 1:03 PM CDT) Only the most recent of2 resultswithin the time period is included. Anatomical Region Laterality Modality Chest, Abdomen, Pelvis Computed Tomography 03/22/2023 9:51 PM CDT Impressions 03/22/2023 10:10 PM CDT Stable posterior mediastinal soft tissue thickening and stable small-volume retroperitoneal lymph nodes and retroperitoneal and mesenteric fat stranding in keeping with residua of treated disease. No new or progressive lymphadenopathy. Stable mildly enlarged spleen. Slight colonic wall thickening may be due to underdistention, with mild changes of colitis not excluded. 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 Findings: CHEST: Stable posterior mediastinal soft tissue thickening measuring 2.5 cm in thickness along the distal thoracic aorta posteriorly on image 93 series 6. Other scattered subcentimeter mediastinal lymph nodes are stable. No hilar or axillary lymphadenopathy. Elevated right hemidiaphragm with linear atelectasis at the right lung base. There is no pleural or pericardial effusion. No new suspicious pulmonary nodule is seen. A few previously noted punctate pulmonary opacities are stable. There is no acute pulmonary consolidation. ABDOMEN/PELVIS: No suspicious liver lesion is seen. Gallbladder is present. The spleen measures 15 cm, similar to prior. The pancreas and adrenal glands are unremarkable. There is no hydronephrosis. Stable scattered retroperitoneal lymph nodes measuring up to 9 mm in short axis. Stable small mesenteric nodes. Stable mesenteric and retroperitoneal fat stranding. There are no dilated bowel loops. Colonic diverticula are present. Slight wall thickening of the colon, predominantly the ascending colon. Normal appendix. There is trace free fluid.. Enlarged prostate. A 6 mm bladder calculus is again noted. No destructive osseous lesion is seen. Degenerative changes are noted in the spine. Procedure Note Ramone Alston MD - 03/22/2023 Examination: CT CHEST ABDOMEN PELVIS W CONTRAST LYMPHOMA, 03/22/2023 1:03PM Clinical History: Follicular lymphoma grade II of lymph nodes of multiplesites Indication: Cancer staging or restaging, Restaging Comparison: CT dated 12/14/2022 Technique: CT of the chest, abdomen, and pelvis was performed withintravenous contrast. Findings: CHEST: Stable posterior mediastinal soft tissue thickening measuring 2.5 cm inthickness along the distal thoracic aorta posteriorly on image 93 series6. Other scattered subcentimeter mediastinal lymph nodes are stable. Nohilar or axillary lymphadenopathy. Elevated right hemidiaphragm with linear atelectasis at the right lungbase. There is no pleural or pericardial effusion. No new suspicious pulmonary nodule is seen. A few previously notedpunctate pulmonary opacities are stable. There is no acute pulmonaryconsolidation. ABDOMEN/PELVIS: No suspicious liver lesion is seen. Gallbladder is present. The spleen measures 15 cm, similar to prior. The pancreas and adrenalglands are unremarkable. There is no hydronephrosis. Stable scattered retroperitoneal lymph nodes measuring up to 9 mm in shortaxis. Stable small mesenteric nodes. Stable mesenteric and retroperitonealfat stranding. There are no dilated bowel loops. Colonic diverticula are present. Slightwall thickening of the colon, predominantly the ascending colon. Normalappendix. There is trace free fluid.. Enlarged prostate. A 6 mm bladdercalculus is again noted. No destructive osseous lesion is seen. Degenerative changes are noted inthe spine. IMPRESSION: Stable posterior mediastinal soft tissue thickening and stablesmall-volume retroperitoneal lymph nodes and retroperitoneal andmesenteric fat stranding in keeping with residua of treated disease. Nonew or progressive lymphadenopathy. Stable mildly enlarged spleen. Slight colonic wall thickening may be due to underdistention, with mildchanges of colitis not excluded. Ivy Dan APRN IMG CT ORDERAB LES * .Serum Creatinine (03/22/2023 10:06 AM CDT) Only the most recent of2 resultswithin the time period is included. Pathologist [facility] Creatinine 1.00 0.67 - 1.17 mg/dL [facility] Blood 03/22/2023 10:0 6 AM CDT 03/22/2023 10:48 AM CDT Ivy Dan APRN LAB BLOOD ORDE RABLES Performing Organization Address City/[facility]/ZIP Co de Phone Number [facility] Unless otherwise noted, all lab tests performed by: Division of Pathology and Laboratory Medicine [address] [place] [address] [id number] * Clot Expiration Date (03/22/2023 10:06 AM CDT) Pathologist [facility] T & S Expiration 03/25/2023 [facility] Blood 03/22/2023 10:0 6 AM CDT 03/22/2023 11:41 AM CDT Ivy Dan APRN BLOOD BANK SERGIO T ORDERABLES Performing Organization Address City/[facility] de Phone Number [facility] Unless otherwise noted, all lab tests performed by: Division of Pathology and Laboratory Medicine [address] [place] [phone] * Glomerular Filtration Rate (03/22/2023 10:06 AM CDT) Only the most recent of2 resultswithin the time period is included. eGFR 81 >=60 mL/min/1.7 3 sq. m [facility] Comment: The eGFRcr is calculated with the 2020 CKD-EPI creatinine equation using creatinine, patient's age, and sex for adults 18 years of age and older. Other factors, especially muscle mass, may affect accuracy and need to be considered. According to the Kidney Disease: Improving Global Outcomes (KDIGO) CKD Work Group 2012 Clinical Practice Guideline, chronic kidney disease (CKD) is defined as the abnormalities of kidney structure or function, present for more than 3 months, with implications for health. CKD should be classified by cause, GFR category, and albuminuria category. KDIGO guidelines provide the following GFR categories Stage Description GFR mL/min/1.73 m2 G1* Normal or high >= 90 G2* Mildly decreased 60-89 G3a Mildly to moderately decreased 45-59 G3b Moderately to severely decreased 30-44 G4 Severely decreased 15-29 G5 Kidney failure <15 *In the absence of evidence of kidney damage, neither G1 nor G2 fulfill criteria for CKD. Blood 03/22/2023 10:0 6 AM CDT 03/22/2023 10:48 AM CDT Ivy Dan APRN LAB BLOOD ETELVINA [facility] Organization Address City/State/ZIP Co de Phone Number [facility] Unless otherwise noted, all lab tests performed by: Division of Pathology and Laboratory Medicine [address] [place] [address] [id number] * Fractionated Bilirubin (03/22/2023 10:06 AM CDT) Only the most recent of2 resultswithin the time period is included. Bili Total 0.9 <=1.2 mg/dL [facility] Comment: Indocyanine Green (ICG) may cause falsely elevated bilirubin results. Total and direct bilirubin must not be measured from samples containing indocyanine green. False elevation of total bilirubin can be seen in patients with IgG concentrations above 28 g/L. Bili Direct 0.2 <=0.3 mg/dL [facility] Comment:Indocyanine Green (I CG) may cause falsely elevated bilirubin results. Total and direct bilirubin must not be measured from samples containing indocyanine green. Bili Indirect 0.7 0.0 - 0.9 mg/dL [facility] Blood 03/22/2023 10:0 6 AM CDT 03/22/2023 10:48 AM CDT Ivy Dan RAIL EQUIPMENT OPERATOR LAB BLOOD ORDE RABLES [facility] Unless otherwise noted, all lab tests performed by: Division of Pathology and Laboratory Medicine [address] [place] [address] [id number] * TMP Interpretation Antibody Screen Negative (03/22/2023 10:06 AM CDT) Pathologist [facility] TMP Auto Neg ABSC Interp At the present time, patient plasma shows no evidence of RBC alloantibodi es. [facility] Comment: YONATAN CLINTON MD, PhD - [id number] Dictated by: YONATAN CLINTON MD, PhD - [id number] Dictated Date/Time: 03.22.2023 18:05 PM CDT Transcribed Date/Time: 03.22.2023 18:05 PM CDT Electronically Signed By: YONATAN CLINTON MD, PhD - [id number] on 03.22.2023 18:05 PM Blood 03/22/2023 10:0 6 AM CDT 03/22/2023 11:41 AM CDT Ivy Dan APRN BLOOD BANK SERGIO T ORDERABLES Performing Organization Address [facility]/ZIP Co de Phone Number [facility] Unless otherwise noted, all lab tests performed by: Division of Pathology and Laboratory Medicine [address] [place] [address] [id number] * ABORh (03/22/2023 10:06 AM CDT) Pathologist [facility] ABORh. O POS [place] MD MYERS [facility] Blood 03/22/2023 10:0 6 AM CDT 03/22/2023 11:41 AM CDT Ivy Dan RAIL EQUIPMENT OPERATOR BLOOD BANK SERGIO T ORDERABLES [facility] Unless otherwise noted, all lab tests performed by: Division of Pathology and Laboratory Medicine [address] [place] [address] [id number] * (ABNORMAL) Differential (03/22/2023 10:06 AM CDT) Only the most recent of2 resultswithin the time period is included. Pathologist [facility] Neutrophil % 74.9(H) 42.0 - 66.0 % [facility] Lymphocyte % 14.1(L) 24.0 - 44.0 % [facility] Monocyte % 8.8(H) 2.0 - 7.0 % [facility] Eosinophil % 1.2 1.0 - 4.0 % [facility] Basophil % 0.4 0.0 - 1.0 % [facility] IGRE % 0.6(H) 0.0 - 0.4 % [facility] Comment:IGRE % count include s Metamyelocytes, Myelocytes, and Promyelocytes. Neutrophil Abs 3.67 1.70 - 7.30 K/uL [facility] Lymphocyte Abs 0.69(L) 1.00 - 4.80 K/uL [facility] Monocyte Abs 0.43 0.08 - 0.70 K/uL [facility] Eosinophil Abs 0.06 0.04 - 0.40 K/uL [facility] Basophil Abs 0.02 0.00 - 0.10 K/uL [facility] IG Abs 0.03 0.00 - 0.04 K/uL [facility] Blood 03/22/2023 10:0 6 AM CDT 03/22/2023 10:29 AM CDT Ivy Dan APRN LAB BLOOD ETELVINA HSIEH [facility] Unless otherwise noted, all lab tests performed by: Division of Pathology and Laboratory Medicine [address] [place] [address] [id number] * Antibody Screen (03/22/2023 10:06 AM CDT) Pathologist [facility] ABSC. Negative ABSC [facility] Blood 03/22/2023 10:0 6 AM CDT 03/22/2023 11:41 AM CDT Ivy Dye Sy RAIL EQUIPMENT OPERATOR BLOOD BANK SERGIO T ORDERABLES [facility] Unless otherwise noted, all lab tests performed by: Division of Pathology and Laboratory Medicine [address] [place] [address] [id number] * BUN (03/22/2023 10:06 AM CDT) Only the most recent of2 resultswithin the time period is included. BUN 15 6 - 23 mg/dL [facility] Blood 03/22/2023 10:0 6 AM CDT 03/22/2023 10:48 AM CDT Ivy Hardik Dan APRN LAB BLOOD ORDE МАРИЯ Performing Organization Address City/[facility] Co de Phone Number [facility] Unless otherwise noted, all lab tests performed by: Division of Pathology and Laboratory Medicine [address] [place] [address] [id number] * ALT (03/22/2023 10:06 AM CDT) Only the most recent of2 resultswithin the time period is included. ALT 26 <=41 U/L [place] [facility] Blood 03/22/2023 10:0 6 AM CDT 03/22/2023 10:48 AM CDT Ivy Dye Dan RAIL EQUIPMENT OPERATOR LAB BLOOD ORDE МАРИЯ [facility] Unless otherwise noted, all lab tests performed by: Division of Pathology and Laboratory Medicine [address] [place] [address] [id number] * Aspartate Aminotransferase (03/22/2023 10:06 AM CDT) Only the most recent of2 resultswithin the time period is included. AST 16 <=40 U/L [facility] Blood 03/22/2023 10:0 6 AM CDT 03/22/2023 10:48 AM CDT Ivy Dye Dan RAIL EQUIPMENT OPERATOR LAB BLOOD ORDMilo HSIEH Performing Organization Address [facility] de Phone Number [facility] Unless otherwise noted, all lab tests performed by: Division of Pathology and Laboratory Medicine [address] [place] [address] [id number] * Total Protein (03/22/2023 10:06 AM CDT) Only the most recent of2 resultswithin the time period is included. Pathologist [facility] Total Protein 7.1 6.4 - 8.3 g/dL [facility] Blood 03/22/2023 10:0 6 AM CDT 03/22/2023 10:48 AM CDT Ivy Hardik Dan ALEXEI LAB BLOOD ORDMilo HSIEH Performing Organization Address [facility] de Phone Number [facility] Unless otherwise noted, all lab tests performed by: Division of Pathology and Laboratory Medicine [address] [place] [address] [id number] * Alkaline Phosphatase (03/22/2023 10:06 AM CDT) Only the most recent of2 resultswithin the time period is included. Pathologist [facility] Alk Phos 66 40 - 129 U/L [facility] Blood 03/22/2023 10:0 6 AM CDT 03/22/2023 10:48 AM CDT Ivy Dye Dan RAIL EQUIPMENT OPERATOR LAB BLOOD ORDMilo HSIEH Performing Organization Address [facility] Co de Phone Number [facility] Unless otherwise noted, all lab tests performed by: Division of Pathology and Laboratory Medicine [address] [place] [address] [phone] * (ABNORMAL) Glucose Level (03/22/2023 10:06 AM CDT) Pathologist [facility] Glucose Level 159(H) 70 - 99 mg/dL [facility] Comment: Effective 05/10/16, the glucose reference intervals have been updated based on [place] Diabetes [employer] guidelines (Standards of Medical Care in Diabetes 2016. Diabetes Care 2016; 39: S13-S22). Fasting blood glucose: Normal: 70-99 mg/dL Impaired fasting glucose (increased risk for diabetes or pre-diabetes): 100- 125 mg/dL Diabetes mellitus: >/=126 mg/dL Random blood glucose: Normal: 70-199 mg/dL Note: Random glucose >100 mg/dL is associated with increased risk for diabetes Blood 03/22/2023 10:0 6 AM CDT 03/22/2023 10:48 AM CDT Ivy Dan APRN LAB BLOOD ORDE RABJIM Performing Organization Address [facility] de Phone Number [facility] Unless otherwise noted, all lab tests performed by: Division of Pathology and Laboratory Medicine [address] [place] [address] [phone] * Calcium Level (03/22/2023 10:06 AM CDT) Only the most recent of2 resultswithin the time period is included. Calcium Lvl 9.9 8.4 - 10.2 mg/dL [facility] Blood 03/22/2023 10:0 6 AM CDT 03/22/2023 10:48 AM CDT Ivy Dan APRN LAB BLOOD ORDE RABJIM Performing Organization Address [facility] de Phone Number [facility] Unless otherwise noted, all lab tests performed by: Division of Pathology and Laboratory Medicine [address] [place] [address] [phone] * Albumin Level (03/22/2023 10:06 AM CDT) Only the most recent of2 resultswithin the time period is included. Albumin Lvl 4.6 3.5 - 5.2 gm/dL [facility] Blood 03/22/2023 10:0 6 AM CDT 03/22/2023 10:48 AM CDT Ivy Dan APRN LAB BLOOD ORDE RABLES Performing Organization Address [facility] de Phone Number [facility] Unless otherwise noted, all lab tests performed by: Division of Pathology and Laboratory Medicine [address] [place] [address] [phone] * (ABNORMAL) Electrolyte Panel (03/22/2023 10:06 AM CDT) Only the most recent of2 resultswithin the time period is included. Sodium Lvl 141 136 - 145 mEq/L [facility] Potassium Lvl 5.2(H) 3.5 - 5.1 mEq/L [facility] Chloride 104 98 - 107 mEq/L [facility] CO2 28 22 - 29 mEq/L [facility] Anion Gap 9 4 - 14 mEq/L [facility] Blood 03/22/2023 10:0 6 AM CDT 03/22/2023 10:48 AM CDT Ivy Dan RAIL EQUIPMENT OPERATOR LAB BLOOD ORDE МАРИЯ Performing Organization Address [facility] Co de Phone Number [facility] Unless otherwise noted, all lab tests performed by: Division of Pathology and Laboratory Medicine [address] [place] [address] [id number] * CA RMVL [facility] VAD W/SUBQ PORT/ACUTE SPECIALIST CTR/PRPH INSJ (12/15/2022 2:42 PM CONCRETE BOOM PUMP OPERATOR) Narrative Stephanie Avendano PA - 12/15/2022 2:42 PM CONCRETE BOOM PUMP OPERATOR JOHN Duenas 12/15/2022 2:43 PM Procedure: port removal Date/Time: 12/15/2022 2:42 PM Laterality: right Location: chest Provider Information: Authorized by: Ivy Dan APN Performed by: JOHN Duenas Communication And Outreach Manager present: no Patient Diagnosis: Pre-operative patient diagnosis: lymphoma Post-operative diagnosis: unchanged Indications: Indications: treatment completion Pre-Procedure Note: Patient examined pre-procedure: yes Chart reviewed pre-procedure, including labs, images, history and physical exam: yes foreign language interpreter: no Pre-procedure patient condition: alert Cautery Device: Cautery device was placed during procedure and dispersive pad was placed on patient for grounding. Anesthesia: Anesthesia: local infiltration Local anesthetic: lidocaine 1% without epinephrine Anesthetic total (ml): 11 Sedation: Patient sedated?: no Port/Tunneled Catheter Removal: Preparation: patient ready for procedure, equipment prepared and removal site prepped and cleaned with aseptic technique Skin prep agent dried: skin prep agent completely dried prior to procedure Sterile barriers: maximum sterile barriers were used: cap, mask, sterile gown, sterile gloves, and large sterile sheet Hand hygiene: hand hygiene was performed prior to port removal Patient position: flat Instruments used: port removal tray Area adequately anesthetized prior to incision: yes Incision made with scalpel: yes Electrocautery used to minimally dissect tissue: yes Blunt dissection with curved hemostats used to free tissue: yes Retaining sutures securing port found and removed: no (no retaining sutures) Catheter successfully freed from membrane cuff: yes Catheter removed intact: yes Hemostasis achieved: yes Wound irrigated with sterile saline: yes Wound sutured and all layers approximated: yes Suture type: vicryl and monocryl Suture size used: 3-0 and 4-0 Steri-strips placed: yes Sterile dressing applied: sterile dressing applied per protocol Estimated blood loss: minimal Specimen(s) Removed: Specimen(s) removed: no specimen collected Post-procedure: Post-procedure: dressing applied Patient condition: patient tolerated the procedure well with no immediate complications, patient is warm and well perfused, patient remained hemodynamically stable throughout the procedure and patient does not report adverse symptoms Responsiveness: awake and alert Patient disposition: discharge to home Comments: The right internal jugular vein catheter/reservoir port was removed intact and discarded per institutional policy. Scrub: Leigh Brito RN Box Folding Machine Operator: ROSA Duggan Ivy Dan APRN IV THERAPY ORD ERABLES * Glucose, Random (12/14/2022 10:11 AM CONCRETE BOOM PUMP OPERATOR) Glucose Random 162 70 - 199 mg/dL [facility] Comment: Effective 05/10/16, the glucose reference intervals have been updated based on [place] Diabetes [employer] guidelines (Standards of Medical Care in Diabetes 2016. Diabetes Care 2016; 39: S13-S22). Fasting blood glucose: Normal: 70-99 mg/dL Impaired fasting glucose (increased risk for diabetes or pre-diabetes): 100- 125 mg/dL Diabetes mellitus: >/=126 mg/dL Random blood glucose: Normal: 70-199 mg/dL Note: Random glucose >100 mg/dL is associated with increased risk for diabetes Blood 12/14/2022 10:1 1 AM CONCRETE BOOM PUMP OPERATOR 12/14/2022 10:36 AM CONCRETE BOOM PUMP OPERATOR Della Wayne MD PhD LAB BLOOD ORDERABLES Performing Organization Address City/[facility]/ZIP Co de Phone Number [facility] Unless otherwise noted, all lab tests performed by: Division of Pathology and Laboratory Medicine [address] [place] [address] [phone] * PT with INR (12/14/2022 10:11 AM CONCRETE BOOM PUMP OPERATOR) PT 12.9 11.9 - 14.1 second(s) [facility] INR 0.97 0.89 - 1.10 [facility] Blood 12/14/2022 10:1 1 AM CONCRETE BOOM PUMP OPERATOR 12/14/2022 10:34 AM CONCRETE BOOM PUMP OPERATOR Narrative [facility] - 12/14/2022 11:04 AM CONCRETE BOOM PUMP OPERATOR Pre procedure labs. This lab cannot be scheduled at the following locations due to collection/proccessing restrictions: [facility] and [facility]. Della Wayne MD PhD LAB BLOOD ORDERABLES Performing Organization Address City/[facility]/ZIP Co de Phone Number [facility] Unless otherwise noted, all lab tests performed by: Division of Pathology and Laboratory Medicine [address] [place] [address] [phone] after 12/09/2022 Care Teams Medical Scribe Relationship Specialty Start Date End Date Della Wayne MD PhD [address] [place] [address] [phone] PCP - General Lymphoma and Myeloma 08/02/22 Sivakumar Laura [address] [place] [address] [phone] Dermatology 12/15/22 Nam Lozano MD [address] [place] [address] [phone] Dermatology 12/15/22 Anny Carrasco MD [address] [place] [address] [phone] Consulting Physician Endocrinology 04/06/23 Rc Ragsdale MD [address] [place] [address] [phone] Consulting Physician Dermatology 01/30/23
--- NOTE | 2023-12-09 19:14 | ER ---
Nurse's Notes [facility] Name: Lynnette Lester Age: 68 yrs Sex: Male : 1955 Arrival Date: 12/09/2023 Time: 17:40 Bed 18 Private MD: Robert Arrieta Diagnosis: Chest pain, unspecified;Type 2 diabetes mellitus with hyperglycemia Presentation: 12/09 17:51 Chief complaint: Patient states: Chest pains for a couple days, radiates to back. nj1 Malaise, fatigued. Coronavirus screen: Vaccine status: Patient reports receiving the 2nd dose of the covid vaccine. Ebola Screen: Patient denies travel to an Ebola-affected area in the 21 days before illness onset. Initial Sepsis Screen: Does the patient meet any 2 criteria? No. Patient's initial sepsis screen is negative. Does the patient have a suspected source of infection? No. Patient's initial sepsis screen is negative. Risk Assessment: Do you want to hurt yourself or someone else? Patient reports no desire to harm self or others. Onset of symptoms was December 07, 2023. 17:51 Method Of Arrival: Ambulatory [facility] 17:51 Acuity: JUVENAL 3 nj1 Historical: - Allergies: 17:55 No Known Allergies; nj1 - PMHx: 17:55 follicular lymphoma; High Cholesterol; Hyperlipidemia; Gout; Hypertensive disorder; nj1 Diabetes mellitus; Pituitary mass; - Immunization history:: Client reports receiving the 2nd dose of the Covid vaccine. - Social history:: Smoking status: Patient denies any tobacco usage or history of. - Family history:: not pertinent. Screenin:[address] [facility] ED Fall Risk Assessment (Adult) Score/Fall Risk Level 0 - 2 = Low Risk. Abuse as6 screen: Denies threats or abuse. Denies injuries from another. Nutritional screening: No deficits noted. Tuberculosis screening: No symptoms or risk factors identified. Assessment: 19:30 General: Appears in no apparent distress. Behavior is calm, cooperative. General: as6 Reports fatigue for >3 days. Pain: Complains of pain in chest Pain radiates to back. Neuro: Level of Consciousness is awake, alert, obeys commands, Oriented to person, place, time, situation. Cardiovascular: Reports chest pain, lightheadedness. Respiratory: Airway is patent Trachea midline Respiratory effort is even, unlabored, Respiratory pattern is regular, symmetrical, Denies shortness of breath. Derm: Skin is intact. Musculoskeletal: Circulation, motion, and sensation intact. 23:01 Reassessment: Patient appears in no apparent distress at this time. Patient and/or as6 family updated on plan of care and expected duration. Pain level reassessed. Patient is alert, oriented x 3, equal unlabored respirations, skin warm/dry/pink. Vital Signs: 17:51 BP 117 / 77; Pulse 89; Resp 18; Temp 98(O); Pulse Ox 98% ; Weight 83.91 kg; Height 5 nj1 ft. 6 in. ; Pain 5/10; 19:30 BP 123 / 96; Pulse 64; Resp 18 S; Pulse Ox 98% on R/A; as6 20:30 BP 116 / 71; Pulse 69; Resp 23 S; Pulse Ox 97% on R/A; as6 22:00 BP 116 / 72; Pulse 66; Resp 20 S; Pulse Ox 97% on R/A; as6 17:51 Body Mass Index 29.86 (83.91 kg, 167.64 cm) nj1 17:51 Pain Scale: Adult [facility] ED Course: 17:41 Patient arrived in ED. mr 17:43 Yolis Arrietao is Private Physician. mr 17:55 Triage completed. nj1 17:56 Arm band placed on right wrist. nj1 17:58 Thien Adams MD is Attending Physician. maricel 18:36 XRAY Chest (1 view) In Process Unspecified. EDMS 19:12 Arnaud Foley, ROSA is Primary Nurse. as6 19:13 aMyito Peña MD is Hospitalizing Provider. maricel 19:33 Inserted saline lock: 20 gauge in right antecubital area, using aseptic technique. kmf Blood collected. 22:56 Bed in low position. Call light in reach. Side rails up X2. Adult w/ patient. Provided as6 Education on: need for admit. 22:57 No provider procedures requiring assistance completed. Patient admitted, IV remains in as6 place. Administered Medications: 19:47 Drug: NS 0.9% IV 500 ml IV at bolus once Route: IV; Rate: bolus; Site: right as6 antecubital; 19:47 Drug: NS 0.9% IV 1000 ml IV at 125 ml/hr continuous Route: IV; Rate: 125 ml/hr; Site: as6 right antecubital; 19:48 Drug: Aspirin PO Chewable Tablet 81 mg PO once Route: PO; as6 19:48 Drug: Metoprolol PO 25 mg PO once Route: PO; as6 19:48 Drug: Famotidine IVP 20 mg IVP once; dilute with 10 mL 0.9% NaCl; give over 2 minutes as6 Route: IVP; Site: right antecubital; 19:48 Drug: Ondansetron IVP 4 mg IVP once; over 2 minutes Route: IVP; Site: right antecubital;as6 22:50 Drug: Enoxaparin Sub-Q 80 mg Sub-Q once; GIVE....IF CT DISSECTION NEGATIVE Route: as6 Sub-Q; Site: left lower abdomen; Medication: 22:56 VIS not applicable for this client. as6 Outcome: 19:14 Decision to Hospitalize by Provider. maricel 22:57 Admitted to ER Hold. Please see [facility] for further documentation. as6 22:57 Condition: stable 22:57 Instructed on the need for admit, 12/10 08:58 Patient left the ED. aa5 Signatures: Dispatcher [employer] EDThien Morgan MD MD cha Rivera, Mary, Reg Reg mr Philomena Mejia, RN RN aa5 Arnaud Foley RN RN as6 Mariely Rothman RN RN nj1 Leesa Schwartz [facility]
--- NOTE | 2023-12-09 19:14 | EDPHYS ---
Physician Documentation [facility] Name: Lynnette Elder Age: 68 yrs Sex: Male : 1955 Arrival Date: 12/09/2023 Time: 17:40 Bed 18 Private MD: Robert Arrieta ED Physician Thien Adams HPI: 12/09 19:07 This 68 yrs old Male presents to ER via Ambulatory with complaints of Chest maricel Pain, Back Pain, High Blood Sugar, High heart rate. 19:07 The patient or guardian reports chest pain that is located primarily in the substernal maricel area. Onset: yesterday. The pain radiates to back. Associated signs and symptoms: Pertinent positives: None. The chest pain is described as stabbing. Duration: The patient or guardian reports multiple episodes, with no pattern. Modifying factors: The symptoms are alleviated by nothing. the symptoms are aggravated by nothing. Severity of pain: At its worst the pain was moderate in the emergency department the pain has improved moderately. The patient has not experienced similar symptoms in the past. Historical: - Allergies: 17:55 No Known Allergies; nj1 - PMHx: 17:55 follicular lymphoma; High Cholesterol; Hyperlipidemia; Gout; Hypertensive disorder; nj1 Diabetes mellitus; Pituitary mass; - Immunization history:: Client reports receiving the 2nd dose of the Covid vaccine. - Social history:: Smoking status: Patient denies any tobacco usage or history of. - Family history:: not pertinent. ROS: 19:07 Constitutional: Negative for fever, chills, and weight loss, Eyes: Negative for injury, maricel pain, redness, and discharge, ENT: Negative for injury, pain, and discharge, Neck: Negative for injury, pain, and swelling, Respiratory: Negative for shortness of breath, cough, wheezing, and pleuritic chest pain, Abdomen/GI: Negative for abdominal pain, nausea, vomiting, diarrhea, and constipation, Back: Negative for injury and pain, : Negative for injury, bleeding, discharge, and swelling, MS/Extremity: Negative for injury and deformity, Skin: Negative for injury, rash, and discoloration, Neuro: Negative for headache, weakness, numbness, tingling, and seizure, Psych: Negative for depression, anxiety, suicide ideation, homicidal ideation, and hallucinations, Allergy/Immunology: Negative for hives, rash, and allergies, Endocrine: Negative for neck swelling, polydipsia, polyuria, polyphagia, and marked weight changes, Hematologic/Lymphatic: Negative for swollen nodes, abnormal bleeding, and unusual bruising, 19:07 Cardiovascular: Positive for chest pain, of the chest, Exam: 19:07 Constitutional: This is a well developed, well nourished patient who is awake, alert, maricel and in no acute distress. Head/Face: Normocephalic, atraumatic. Eyes: Pupils equal round and reactive to light, extra-ocular motions intact. Lids and lashes normal. Conjunctiva and sclera are non-icteric and not injected. Cornea within normal limits. Periorbital areas with no swelling, redness, or edema. ENT: Nares patent. No nasal discharge, no septal abnormalities noted. Tympanic membranes are normal and external auditory canals are clear. Oropharynx with no redness, swelling, or masses, exudates, or evidence of obstruction, uvula midline. Mucous membranes moist. Neck: Trachea midline, no thyromegaly or masses palpated, and no cervical lymphadenopathy. Supple, full range of motion without nuchal rigidity, or vertebral point tenderness. No Meningismus. Chest/axilla: Normal chest wall appearance and motion. Nontender with no deformity. No lesions are appreciated. Cardiovascular: Regular rate and rhythm with a normal S1 and S2. No gallops, murmurs, or rubs. Normal PMI, no JVD. No pulse deficits. Respiratory: Lungs have equal breath sounds bilaterally, clear to auscultation and percussion. No rales, rhonchi or wheezes noted. No increased work of breathing, no retractions or nasal flaring. Abdomen/GI: Soft, non-tender, with normal bowel sounds. No distension or tympany. No guarding or rebound. No evidence of tenderness throughout. Back: No spinal tenderness. No costovertebral tenderness. Full range of motion. Male : Normal genitalia with no discharge or lesions. Skin: Warm, dry with normal turgor. Normal color with no rashes, no lesions, and no evidence of cellulitis. MS/ Extremity: Pulses equal, no cyanosis. Neurovascular intact. Full, normal range of motion. Neuro: Awake and alert, GCS 15, oriented to person, place, time, and situation. Cranial nerves II-XII grossly intact. Motor strength 5/5 in all extremities. Sensory grossly intact. Cerebellar exam normal. Normal gait. Psych: Awake, alert, with orientation to person, place and time. Behavior, mood, and affect are within normal limits. 19:07 Musculoskeletal/extremity: DVT Exam: No signs of deep vein thrombosis. no pain, no swelling, no tenderness, negative Homans' sign noted on exam, no appreciated bluish discoloration, no erythema, no increased warmth, 19:36 ECG was reviewed by the Attending Physician. [facility] Vital Signs: 17:51 BP 117 / 77; Pulse 89; Resp 18; Temp 98(O); Pulse Ox 98% ; Weight 83.91 kg; Height 5 nj1 ft. 6 in. ; Pain 5/10; 19:30 BP 123 / 96; Pulse 64; Resp 18 S; Pulse Ox 98% on R/A; as6 20:30 BP 116 / 71; Pulse 69; Resp 23 S; Pulse Ox 97% on R/A; as6 22:00 BP 116 / 72; Pulse 66; Resp 20 S; Pulse Ox 97% on R/A; as6 17:51 Body Mass Index 29.86 (83.91 kg, 167.64 cm) nj 17:51 Pain Scale: Adult nj1 MDM: 17:58 Patient medically screened. [facility] 19:08 Differential diagnosis: abnormal EKG, acute myocardial infarction, acute pericarditis, maricel anxiety, coronary artery disease chest wall pain, Cholelithiasis costochondritis, esophagitis, herpes zoster, hiatal hernia, pancreatitis, peptic ulcer disease, pericarditis, pleurisy, pulmonary embolus, stable angina, thoracic aortic disection, unstable angina. HEART Score: History: Moderately Suspicious (1), Age: > or = 65 years (2), Risk Factors: > or = 3 Risk factors for atherosclerotic disease (2), [Hypercholesterolemia] [Hypertension] [DM] [+ Family HX] [Obesity]. The patient was given aspirin in the Emergency Department. CHARLIE Risk Score: 1 - patient's age is greater or equal to 65 years, 1 - Three or more CAD risk factors, 1- Known CAD, 1 - ASA use in past 7 days, 1 - Recent [<24hrs] Severe Angina, TOTAL SCORE = 5. Data reviewed: vital signs, nurses notes, lab test result(s), EKG, radiologic studies, CT scan, plain films. Consideration of Admission/Observation Patient was admitted/placed on observation. Escalation of care including admission/observation considered. I considered the following discharge prescriptions or medication management in the emergency department Medications were administered in the Emergency Department. See MAR. Independent interpretation of the following test(s) in the Emergency Department EKG: See my EKG interpretation above. Test considered but Not performed: Ultrasound NO 2 D ECHO. Historians other than the Patient: Spouse/Significant Other: WELL INFORMED. Care significantly affected by the following chronic conditions: Diabetes, Hypertension, Obesity, Cancer. Counseling: I had a detailed discussion with the patient and/or guardian regarding the historical points, exam findings, and any diagnostic results supporting the discharge/admit diagnosis, lab results, radiology results, the need for further work-up and treatment in the hospital. 12/09 18:00 Order name: Basic Metabolic Panel; Complete Time: 21:03 [facility] 12/09 21:24 Interpretation: Normal except: CL 109; GLUC 116; BUN 39; CRE 1.66; GFR 44. 12/09 18:00 Order name: CBC with Diff; Complete Time: 20:38 [facility] 12/09 21:24 Interpretation: Normal except: RBC 4.12; HGB 13.2; HCT 38.8; PLT 118; RDW 16.1. 12/09 18:00 Order name: LFT's; Complete Time: 21:03 [facility] 12/09 21:24 Interpretation: Reviewed. 12/09 18:00 Order name: Magnesium; Complete Time: 21:03 [facility] 12/09 21:24 Interpretation: Reviewed. 12/09 18:00 Order name: NT PRO-BNP; Complete Time: 21:03 [facility] 12/09 20: Interpretation: Reviewed. cp 12/09 18:00 Order name: PT-INR; Complete Time: 19:51 [facility] 12/09 20: Interpretation: Reviewed. cp 12/09 18:00 Order name: Troponin HS; Complete Time: 21:03 [facility] 12/09 22:18 Interpretation: Reviewed. cp 12/09 18:00 Order name: Lipase; Complete Time: 21:03 [facility] 12/09 18:00 Order name: Urinalysis w/ reflexes; Complete Time: 22:18 [facility] 12/09 22:18 Interpretation: Reviewed. cp 12/09 20:40 Order name: NT PRO-BNP [facility] 12/09 20:40 Order name: Urinalysis w/ reflexes [facility] 12/09 20:40 Order name: Basic Metabolic Panel [facility] 12/09 20:40 Order name: Basic Metabolic Panel [facility] 12/09 20:40 Order name: Comprehensive Metabolic Panel [facility] 12/09 20:40 Order name: Comprehensive Metabolic Panel [facility] 12/09 20:40 Order name: Troponin High Sensitivity [facility] 12/09 20:40 Order name: Troponin High Sensitivity [facility] 12/09 20:40 Order name: Troponin High Sensitivity [facility] 12/09 20:40 Order name: Troponin High Sensitivity [facility] 12/09 22:42 Order name: NT PRO-BNP [facility] 12/09 18:00 Order name: XRAY Chest (1 view); Complete Time: 21:03 [facility] 12/09 18:00 Order name: CT Aorta for Dissection [facility] 12/09 21:58 Order name: CT; Complete Time: 22:16 [facility] 12/09 22:17 Interpretation: Report reviewed. 12/09 18:00 Order name: EKG; Complete Time: 18:01 [facility] 12/09 18:00 Order name: Cardiac monitoring; Complete Time: 19:47 [facility] 12/09 18:00 Order name: EKG - Nurse/Tech; Complete Time: 19:34 [facility] 12/09 18:00 Order name: IV Saline Lock; Complete Time: 19:34 [facility] 12/09 18:00 Order name: Labs collected and sent; Complete Time: 19:34 [facility] 12/09 18:00 Order name: O2 Per Protocol; Complete Time: 19:47 [facility] 12/09 18:00 Order name: O2 Sat Monitoring; Complete Time: 19:47 [facility] EC:36 Rate is 72 beats/min. Rhythm is regular. QRS Brothers is Normal. NC interval is normal. QRS maricel interval is normal. QT interval is normal. No Q waves. T waves are Normal. No ST changes noted. Clinical impression: Normal ECG and No evidence of ischemia. Interpreted by me. Reviewed by me. Administered Medications: 19:47 Drug: NS 0.9% IV 500 ml IV at bolus once Route: IV; Rate: bolus; Site: right as6 antecubital; 19:47 Drug: NS 0.9% IV 1000 ml IV at 125 ml/hr continuous Route: IV; Rate: 125 ml/hr; Site: as6 right antecubital; 19:48 Drug: Aspirin PO Chewable Tablet 81 mg PO once Route: PO; as6 19:48 Drug: Metoprolol PO 25 mg PO once Route: PO; as6 19:48 Drug: Famotidine IVP 20 mg IVP once; dilute with 10 mL 0.9% NaCl; give over 2 minutes as6 Route: IVP; Site: right antecubital; 19:48 Drug: Ondansetron IVP 4 mg IVP once; over 2 minutes Route: IVP; Site: right antecubital;as6 22:50 Drug: Enoxaparin Sub-Q 80 mg Sub-Q once; GIVE....IF CT DISSECTION NEGATIVE Route: as6 Sub-Q; Site: left lower abdomen; Disposition Summary: 12/09/23 19:14 Hospitalization Ordered Notes: Hospitalization Status: Observation maricel Provider: Mayito Peña cha Condition: Fair maricel Problem: new maricel Symptoms: have improved maricel Bed/Room Type: Standard maricel Location: Telemetry/MedSurg (observation)(12/10/23 07:20) bd Room Assignment: 230(12/10/23 07:20) bd Diagnosis - Chest pain, unspecified maricel - Type 2 diabetes mellitus with hyperglycemia maricel Forms: - Medication Reconciliation Form maricel - SBAR form maricel - Leadership Thank You Letter maricel Signatures: Dispatcher [employer] Xochitl Blanco Corey, MD MD cha Page, Corey, PA PA cp Slawson, Ashby, RN RN as6 Marissa Kelly rv1 Mariely Rothman RN RN nj1 Harley Cartwright MD MD ec2 Corrections: (The following items were deleted from the chart) :58 19:14 Telemetry/MedSurg (observation) maricel rv1 :58 19:14 maricel rv1 12/10 07:20 12/09 21:58 [facility] ER HOLD rv1 bd 12/10 07:12/09 21:58 ERHOLD- rv1 bd
[2023-12-09] MEDS ORDERED: ASPIRIN 81 MG CHEWABLE TABLET ONE (19:28)
[2023-12-09] MEDS ORDERED: ONDANSETRON 4 MG/2 ML VIAL ONE (19:28)
[2023-12-09] MEDS ORDERED: MORPHINE 4 MG/ML SYR ONE (19:29)
[2023-12-09] MEDS ORDERED: NA CHLORIDE 0.9% 1,000 ML ONE (19:29)
[2023-12-09] MEDS ORDERED: NA CHLORIDE 0.9% 500 ML ONE (19:29)
[2023-12-09] MEDS ORDERED: FAMOTIDINE 20 MG/2 ML VIAL IV ONE (19:29)
[2023-12-09] MEDS: METOPROLOL TAR 25 MG TAB ONE (19:34)
[2023-12-09 19:45] LABS: Absolute Lymphocytes (CBC) 0.9 K/uL (0.7-4.9); Hematocrit 38.8 % (39.6-49.0); Lymphocytes % 17.5 % (15.3-44.8); MPV 8.2 fL (7.6-11.3); Platelets 118 thou/uL (152-406); Protime INR 1.07; RBC Red Blood Cell Count 4.12 M/uL (4.33-5.43)
[2023-12-09 19:53] LABS: Specific Gravity 1.021 (1.005-1.030); Urine Bilirubin NEGATIVE (Negative); Urine Blood Negative (Negative); Urine Clarity Clear (Clear); Urine Color Light-Yellow (Yellow); Urine Glucose NEGATIVE (Negative); Urine Protein NEGATIVE (Negative); Urine Urobilinogen Normal (Normal)
[2023-12-09 20:34] LABS: Albumin 4.1 g/dL (3.4-5.0); Bilirubin Direct 0.2 mg/dL (0-0.2); Bilirubin Indirect, Calculated 0.3 mg/dL (0.2-0.8); Bilirubin Total 0.5 mg/dL (0.2-1.0); Magnesium 2.1 mg/dL (1.6-2.4); Potassium 4.8 mEq/L (3.5-5.1); Protein, Total 7.2 g/dL (6.4-8.2)
[2023-12-09] MEDS ORDERED: ONDANSETRON 4 MG/2 ML VIAL IV PRN (20:35)
[2023-12-09] MEDS ORDERED: ACETAMINOPHEN 325 MG TABLET PO PRN (20:35)
--- NOTE | 2023-12-09 20:40 | P.HP ---
Certification for Inpatient Patient admitted to: Observation With expected LOS: <2 Midnights Practitioner: I am a practitioner with admitting privileges, knowledge of patient current condition, hospital course, and medical plan of care. Services: Services provided to patient in accordance with Admission requirements found in Title 42 Section 412.3 of the Code of Federal Regulations Patient History Date of Service: 12/09/23 Reason for admission: Chest Pain History of Present Illness: 68 yrs old with past medical history of hypertension, hyperlipidemia, BPH, lymphoma, gout who presented to the ER with chest pain and back pain which has started on 12/07/2023 and has been progressively worsening and was brought to ER. Chest pain is retrosternal radiating to the back sharp, intermittent, 8 out of 10 in severity when it happens. Denies any modifying factors . Denies any diaphoresis No shortness of breath. Denies any new nausea vomiting or diarrhea. No fever or chills. No sick contacts Patient was assessed in the ER and was admitted for further management of chest pain to rule out ACS Allergies No Known Allergies Allergy (Verified 06/28/23 11:30) Home medications list reviewed: Yes Home Medications: Allopurinol 300 mg PO DAILY 06/28/23 Aspirin [Aspirin EC 81 MG] 81 mg PO DAILY 06/28/23 Finasteride 5 mg PO DAILY 06/28/23 Olmesartan Medoxomil 20 mg PO DAILY 06/28/23 Rosuvastatin [Crestor] 5 mg PO DAILY 06/28/23 Tamsulosin [Flomax] 0.4 mg PO DAILY 06/28/23 Triamterene/Hydrochlorothiazid [Triamterene-Hctz 75-50 mg Tab] 1 each PO SEECOM 06/28/23 Metformin ER [Glucophage ER] 500 mg PO BID 12/09/23 terbinafine HCL [Terbinafine HCl] 250 mg PO DAILY 12/09/23 - Past Medical/Surgical History Past Medical History: Reviewed- Non-Contributory -: Follicular lymphoma -: Hypertension -: Hyperlipidemia -: Gout -: BPH Past Surgical History: Reviewed- Non-Contributory -: Left hand surgery Psychosocial/ Personal History: Lives at home with family - Family History Family History: Reviewed- Non-Contributory - Social History Smoking Status: Never smoker Alcohol use: No CD- Drugs: No Caffeine use: Yes Review of Systems 10-point ROS is otherwise unremarkable Cardiovascular: Chest Pain Physical Examination - Vital Signs Temperature: 98.8 F Blood Pressure: 136/88 Pulse: 78 Respirations: 18 Pulse Ox (%): 97 - Physical Exam General: Alert, In no apparent distress, Oriented x3 HEENT: Atraumatic, Normocephalic Neck: Supple, No Thyromegaly Respiratory: Clear to auscultation bilaterally, Normal air movement Cardiovascular: No edema, Regular rate/rhythm, Normal S1 S2, No rubs Capillary refill: <2 Seconds Gastrointestinal: Soft and benign, W/out hepatosplenomegaly, No tenderness, No guarding Musculoskeletal: No clubbing, No swelling Integumentary: No rashes, No breakdown Neurological: Normal speech, Normal strength at 5/5 x4 extr, Normal tone, Cranial nerves 3-12 intact, Normal reflexes 2+, Normal affect Lymphatics: No axilla or inguinal lymphadenopathy - Studies Laboratory Data (last 24 hrs) 12/09/23 12/09/23 19:29 19:29 WBC 5.20 Hgb 13.2 L Hct 38.8 L Plt Count 118 L PT 11.7 INR 1.07 Assessment and Plan - Problems (Diagnosis) (1) Chest pain, rule out acute myocardial infarction Current Visit: Yes Status: Acute Plan: Will trend cardiac enzymes Will monitor telemetry Started on aspirin and statin EKG did not show any acute changes sinus ST-T suggestive of ischemia Will get an echocardiogram Cardiology consult (2) Hypertension Current Visit: Yes Status: Chronic Plan: Continue home medications and titrate as needed Hydralazine as needed Monitor under telemetry (3) Hyperlipidemia Current Visit: Yes Status: Chronic Plan: Continue statin (4) BPH (benign prostatic hyperplasia) Current Visit: Yes Status: Chronic Plan: Continue home medications and titrate strength (5) History of lymphoma Current Visit: Yes Status: Chronic Plan: Continue management with heme oncology as outpatient CT findings noted Discharge Plan: Home Plan to discharge in: 24 Hours - Advance Directives Does patient have a Living Will: No Does patient have a Durable POA for Healthcare: No Time Spent Managing Pts Care (In Minutes): 54
--- NOTE | 2023-12-09 20:57 | RAD REPORT ---
EXAM DESCRIPTION: Taylor Single View12/09/2023 6:34 pm CLINICAL HISTORY: Chest pain COMPARISON: none FINDINGS: The lungs appear clear of acute infiltrate. The heart is mildly enlarged IMPRESSION: No acute abnormalities displayed
--- NOTE | 2023-12-09 21:58 | RAD REPORT ---
EXAM DESCRIPTION: CT - Angio Aorta For Dissection - 12/09/2023 9:22 pm CLINICAL HISTORY: . Chest and abd pain COMPARISON: CT pelvis 2020 TECHNIQUE: Computed tomography angiography of the chest, abdomen pelvis were obtained. 100 cc Isovue 370 was administered intravenously. Coronal and sagittal reconstruction were performed. MIP 3D reconstruction was performed All CT scans are performed using dose optimization technique as appropriate and may include automated exposure control or mA/KV adjustment according to patient size. FINDINGS: An aortic dissection is not seen. An aortic aneurysm is not displayed. Soft tissue measuring approximately 9 x 2 x 2 centimeters (cc by AP by trans) lies within the posteri or mediastinum posterior to the descending thoracic aorta within the lower chest extending to the arlene phragm. The celiac, SMA and OLIVER are patent . A lung consolidation is not present. A pericardial effusion is not seen. A pleural effusion is not no edwin. The liver,spleen, pancreas,adrenals and kidneys demonstrate no significant abnormality. There no evidence diverticulitis. 8 millimeter bladder calculus. . Retroperitoneal lymphadenopathy has resolved since prior exam. Mild stranding within the mesentery. Moderate prostatic enlargement. Small inguinal hernias IMPRESSION: Negative for an aortic dissection. Soft tissue measuring approximately 9 x 2 x 2 centimeters (cc by AP by trans) lies within the posteri or mediastinum posterior to the descending thoracic aorta within the lower chest extending to the arlene phragm. This is favored to represent lymphoma and a should be correlated with prior outside imaging. This would be an unusual appearance for intramural hematoma of the aorta
[2023-12-09 22:42] LABS: Troponin High Sensitivity 10.5 pg/mL (<58.9)
[2023-12-09] MEDS ORDERED: ENOXAPARIN 80 MG/0.8 ML SQ ONE (22:44)
[2023-12-09] MEDS ORDERED: [UNRECOGNIZED DRUG - OTHER] PO SCH (23:00)
[2023-12-09 23:17] VITALS: BMI 30.6
[2023-12-10 03:51] LABS: Albumin 3.8 g/dL (3.4-5.0); Bilirubin Total 0.5 mg/dL (0.2-1.0); Potassium 4.3 mEq/L (3.5-5.1); Protein, Total 6.5 g/dL (6.4-8.2); Troponin High Sensitivity 13.4 pg/mL (<58.9)
[2023-12-10] MEDS ORDERED: ROSUVASTATIN 10 MG TAB PO SCH (09:00)
[2023-12-10 09:22] VITALS: O2SAT 97
[2023-12-10] MEDS: allopurinoL 300 MG TAB PO SCH (10:09)
[2023-12-10] MEDS: FINASTERIDE 5 MG TAB PO SCH (10:09)
[2023-12-10] MEDS: ENOXAPARIN 40 MG/0.4 ML SQ SCH (10:09)
[2023-12-10] MEDS: VALSARTAN 80 MG TAB PO SCH (10:09)
[2023-12-10] MEDS: ASPIRIN EC 81 MG TAB PO SCH (10:10)
[2023-12-10] MEDS: TAMSULOSIN 0.4 MG SR CAP PO SCH (10:10)
[2023-12-10] MEDS: ROSUVASTATIN 5 MG TAB PO SCH (11:45)
[2023-12-10 13:33] VITALS: BP 113/65; TEMP 97.4
--- NOTE | 2023-12-10 14:00 | P.DS ---
Admission Date: 12/09/23 Discharge Date: 12/10/23 Disposition: ROUTINE DISCHARGE Discharge Condition: FAIR Reason for Admission: Chest Pain - Problems (1) Mediastinal mass Current Visit: Yes Status: Acute (2) Chest pain, rule out acute myocardial infarction Current Visit: Yes Status: Acute (3) BPH (benign prostatic hyperplasia) Current Visit: Yes Status: Chronic (4) History of lymphoma Current Visit: Yes Status: Chronic (5) Hyperlipidemia Current Visit: Yes Status: Chronic (6) Hypertension Current Visit: Yes Status: Chronic Brief History of Present Illness: 68 yrs old with past medical history of hypertension, hyperlipidemia, BPH, lymphoma, gout who presented to the ER with chest pain and back pain which has started on 12/07/2023 and has been progressively worsening. Chest pain described as retrosternal radiating to the back sharp, intermittent, 8 out of 10 in severity when it happens. No shortness of breath. Denies any new nausea vomiting or diarrhea. No fever or chills. No sick contacts Patient was assessed in the ER and was hospitalized for further management of chest pain to rule out ACS Hospital Course: Patient placed on observation medical floor. Troponin trended negative. He reported significant improvement in his chest pain. CT dissection demonstrated large posterior mediastinal mass which can cause the pain he is experiencing. ACS was ruled out. Patient seen and evaluated by cardiology Dr. Lewis was cleared patient for discharge. No changes made in his home medications. Patient has been informed of the mediastinal mass noted on the CT that he did on admission. Patient has been provided disc of his CT images and the CT scan radiology report to follow-up with his oncologist for further evaluation and management. Vital Signs/Physical Exam: Temp Pulse Resp BP Pulse Ox 97.4 F 63 16 113/65 98 12/10/23 12:00 12/10/23 12:00 12/10/23 12:00 12/10/23 12:12/10/23 12:00 General: Alert, In no apparent distress, Oriented x3 HEENT: Mucous membr. moist/pink Neck: Supple, JVD not distended Respiratory: Clear to auscultation bilaterally, Normal air movement Cardiovascular: No edema, Regular rate/rhythm, Normal S1 S2 Gastrointestinal: Normal bowel sounds, Soft and benign, Non-distended, No tenderness Musculoskeletal: No swelling, No tenderness Integumentary: No rashes, No cyanosis Laboratory Data at Discharge: WBC 5.20 thou/uL (4.3-10.9) 12/09/23 19:29 Hgb 13.2 g/dL (13.6-17.9) L 12/09/23 19:29 Hct 38.8 % (39.6-49.0) L 12/09/23 19:29 Plt Count 118 thou/uL (152-406) L 12/09/23 19:29 PT 11.7 SECONDS (9.5-12.5) 12/09/23 19:29 INR 1.07 12/09/23 19:29 Sodium 139 mEq/L (136-145) 12/10/23 03:05 Potassium 4.3 mEq/L (3.5-5.1) 12/10/23 03:05 BUN 35 mg/dL (7-18) H 12/10/23 03:05 Creatinine 1.40 mg/dL (0.70-1.30) H 12/10/23 03:05 Glucose 103 mg/dL (74-106) 12/10/23 03:05 Magnesium 2.1 mg/dL (1.6-2.4) 12/09/23 19:29 Total Bilirubin 0.5 mg/dL (0.2-1.0) 12/10/23 03:05 AST 20 U/L (15-37) 12/10/23 03:05 ALT 29 U/L (16-61) 12/10/23 03:05 Alkaline Phosphatase 59 U/L (45-117) 12/10/23 03:05 Lipase 53 U/L (13-75) 12/09/23 19:29 Home Medications: Allopurinol 300 mg PO DAILY 06/28/23 Aspirin [Aspirin EC 81 MG] 81 mg PO DAILY 06/28/23 Finasteride 5 mg PO DAILY 06/28/23 Olmesartan Medoxomil 20 mg PO DAILY 06/28/23 Rosuvastatin [Crestor*] 5 mg PO DAILY 06/28/23 Tamsulosin [Flomax*] 0.4 mg PO DAILY 06/28/23 Triamterene/Hydrochlorothiazid [Triamterene-Hctz 75-50 mg Tab] 1 each PO DAILY 06/28/23 Metformin ER [Glucophage ER*] 500 mg PO BID 12/09/23 terbinafine HCL [Terbinafine HCl] 250 mg PO DAILY 12/09/23 Diet: ADA Activity: Ad bear Followup: Robert Arrieta MD [Primary Care Provider] - 1-2 Weeks Time spent managing pt's care (in minutes): 27
--- NOTE | 2023-12-10 14:29 | EKG ---
Test Date: 2023-12-09 Test Time: 19:23:34 Unclaimed Property Officer: JOSE MEASUREMENT RESULTS: Intervals: Rate: 72 NE: 178 QRSD: 86 QT: 372 QTc: 407 Lucan: P: 63 NE: 178 QRS: 8 T: 30 INTERPRETIVE STATEMENTS: Normal sinus rhythm Normal ECG Compared to ECG 06/28/2023 11:49:48 Sinus arrhythmia no longer present Ventricular premature complex(es) no longer present Electronically Signed On 12-10-23 14:26:18 [employer]ICE PRESIDENT by Chandler Ambrosio
--- NOTE | 2023-12-11 06:39 | ECHO ---
HEIGHT: 5 ft 5 in WEIGHT: 184 lb 0 oz DATE OF STUDY: 12/10/[address]: George Peña DO 2-DIMENSIONAL: YES M.MODE: YES DOPPLER: YES COLOR FLOW: YES TDS: PORTABLE: YES DEFINITY: BUBBLE STUDY: DIAGNOSIS: CHEST PAIN CARDIAC HISTORY: CATHERIZATION: SURGERY: PROSTHETIC VALVE: PACEMAKER: MEASUREMENTS (cm) DIASTOLIC (NORMALS) SYSTOLIC (NORMALS) IVSd 0.9 (0.6-1.2) LA Diam 3.6 (1.9-4.0) LVEF 55% LVIDd 4.1 (3.5-5.7) LVIDs 2.9 (2.0-3.5) %FS 29% LVPWd 1.1 (0.6-1.2) Ao Diam 3.3 (2.0-3.7) 2 DIMENSIONAL ASSESSMENT: RIGHT ATRIUM: NORMAL LEFT ATRIUM: NORMAL RIGHT VENTRICLE: NORMAL LEFT VENTRICLE: NORMAL TRICUSPID VALVE: TRACE TRICUSPID REGURGITATION MITRAL VALVE: TRACE MITRAL REGURGITATION PULMONIC VALVE: NORMAL AORTIC VALVE: NORMAL PERICARDIAL EFFUSION: NONE AORTIC ROOT: NORMAL LEFT VENTRICULAR WALL MOTION: NORMAL DOPPLER/COLOR FLOW: SEE BELOW COMMENTS: 1. NORMAL LEFT VENTRICULAR EJECTION FRACTION 55-60% WITH NORMAL WALL MOTION 2. TRACE MITRAL REGURGITATION 3. TRACE TRICUSPID REGURGITATION 4. NORMAL DIASTOLIC FUNCTION TECHNOLOGIST: JOSE BO
== END 2023-12-10 15:42 | disposition home or self-care (01) ==
LOC: ER 17:40 → ERHOLD 20:35 → 2ND 12-10 07:25
PROVIDERS: ADMIT Family Medicine; ATTEND Internal Medicine
DX: R07.9 Chest pain, unspecified (principal); R22.2 Localized swelling, mass and lump, trunk; I10 Essential (primary) hypertension; E78.5 Hyperlipidemia, unspecified; N40.0 Benign prostatic hyperplasia without lower urinary tract symptoms; M10.9 Gout, unspecified; M54.9 Dorsalgia, unspecified; C85.90 Non-Hodgkin lymphoma, unspecified, unspecified site
CPT/HCPCS: 93005; 93306; 85025; 80048; 36415 ×2; 83735; 85610; 82947 ×2; 80076; 81003; 84484 ×4; 83690; 80053; 83880 ×2; 71275; 74175; 71045; Q9967; J1650; J2405; J7040; J7030; G0378 ×4; 96372; 96374; 96375; 99285

== ENCOUNTER 2023-12-24 15:47 | Inpatient (IN) | payer OTHER, BC ==
--- OUTSIDE RECORDS SUMMARY | 2023-12-24 15:51 | XMS REPORT | Clinical Summary ---
Author Name Unknown Organization [facility] Address [address] [place] [address] Care Team Providers Care Analyst Programmer Name Role Phone Della Wayne MD PhD Primary Care Provider Sivakumar Laura Unavailable Nam Lozano MD Unavailable [phone] Anny Carrasco MD Unavailable Rc Ragsdale MD Unavailable [phone] Allergies No known active allergies Medications Medication [...] 0 4 Active valACYclovir (VALTREX) 500 mg tabletIndications: Follicular lymphoma [...] Encounters Date Type Department Care Team Description 12/19/2023 Orders Only [facility] [address] [place] [address], 6th [place] [address] Ivy Dan, INSTRUCTIONAL AIDE 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) 12/15/2023 8:00 PM BREW HOUSE SUPERVISOR Ancillary Procedure Image Library [address] [place] [address] Della Wayne MD PhD 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 12/15/2023 Orders Only [facility] [address] [place] [address], 6th [place] [address] Della Wayne MD PhD 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) 12/14/2023 8:05 PM BREW HOUSE SUPERVISOR Ancillary Procedure Image Library [address] [place] [address] Anny Carrasco MD Cancer 12/14/2023 8:00 PM BREW HOUSE SUPERVISOR Ancillary Procedure Image Library [address] [place] [address] Anny Carrasco MD Cancer 12/03/2023 8:00 AM BREW HOUSE SUPERVISOR Procedure visit [facility] and [facility] [address] [facility], Floor 6 [place] [address] Oliver Samuels MD 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); Squamous cell carcinoma, NOS of skin of other and unspecified parts of face; Squamous cell carcinoma in situ; 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 12/03/2023 Travel 11/26/2023 [facility] Main dg, 9th [place] [address] Rc Ragsdale MD Diffuse actinic hyperkeratosis 11/19/2023 Telephone [facility] - Dermatology and [facility] [address] [facility], Floor 6 [place] [address] Hermes Yu, RN 11/19/2023 Telephone [facility] and [facility] [address] [facility], Floor 6 [place] [address] Hermes Yu, RN 10/30/2023 Orders Only [facility] - Dermatology and [facility] [address] [facility], Floor 6 [place] [address] Karlos Samuels MD 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); Squamous cell carcinoma in situ 10/24/2023 [facility] [address] [place] [address] Main dg, 9th [place] [address] Craig Weldon MD 10/22/2023 8:30 AM BREW HOUSE SUPERVISOR Follow-Up [facility] [address] [place] [address] Main dg, 9th [place] [address] Rc Ragsdale MD History of squamous cell carcinoma of skin (Primary Dx); Diffuse actinic hyperkeratosis; Neoplasm of uncertain behavior of skin 10/22/2023 Travel 09/28/2023 10:00 AM BREW HOUSE SUPERVISOR [facility] [address] [place] [address] Main dg, 6th [place] [address] Della Wayne MD PhD 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) 09/28/2023 Travel 09/21/2023 3:30 PM BREW HOUSE SUPERVISOR Follow-Up [facility] [address] [place] [address] Main [facility], 6th [place] [address] Anny Carrasco MD Pituitary macroadenoma (Primary Dx) 09/21/2023 11:15 AM BREW HOUSE SUPERVISOR Ancillary Procedure [facility] [address] [place] [address] Selin Lambert PA Pituitary macroadenoma 09/21/2023 Travel 09/20/2023 10:34 AM BREW HOUSE SUPERVISOR - 09/20/2023 11:59 PM BREW HOUSE SUPERVISOR Hospital Encounter Main CT IMAGING [address] [place] [address], 3rd [place] [address] Ivy Dan APRN 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 Discharge Disposition: Home 09/20/2023 8:15 AM BREW HOUSE SUPERVISOR - 09/20/2023 10:33 AM BREW HOUSE SUPERVISOR Hospital Encounter [facility] [address] [place] [address], [place] [address] Ivy Dan APRN 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; Pituitary macroadenoma Discharge Disposition: Home 09/17/2023 2:30 PM BREW HOUSE SUPERVISOR Follow[facility]Up [facility] [address] [place] [address], 9th [place] [address] Rc Ragsdale MD History of squamous cell carcinoma of skin (Primary Dx); Other viral wart; Diffuse actinic hyperkeratosis; Irritated basal cell papilloma; Seborrheic keratosis; Solar lentigo; Hemangioma of skin and subcutaneous tissue 09/17/2023 Travel 08/03/2023 Telephone [facility] [address] [place] [address] Main [facility], 9th [place] [address] Norma Goff MD 07/31/2023 8:00 AM CDT Procedure visit [facility] and [facility] [address] [facility], Floor 6 [place] [address] Oliver Samuels MD Squamous cell carcinoma of scalp; Basal cell carcinoma of skin of right upper limb, including shoulder 07/31/2023 Documentation [facility] [address] [facility] Main dg, 10th Floor, [place] [address] Mallorie Matthews 07/31/2023 Travel 07/27/2023 Orders Only [facility] - Dermatology and Mohs [address] [facility], Floor 6 [place] [address] Christy Ortiz MD Squamous cell carcinoma of scalp (Primary Dx) 07/19/2023 Telephone [facility] - Dermatology and Mohs [address] [facility], Floor 6 [place] [address] Hermes Yu, RN 07/09/2023 [facility] Main dg, 9th [place] [address] Milli Lucero RN Diffuse actinic hyperkeratosis 07/08/2023 Refill [facility] [address] [facility] Main dg, 9th [place] [address] Rc Ragsdale MD Diffuse actinic hyperkeratosis 06/25/2023 Telephone [facility] - Dermatology and [facility] [address] [facility], Floor 6 [place] [address] Payton Zurita, ROSA 06/19/2023 Orders Only [facility] - Dermatology and Mohs [address] [facility], Floor 6 [place] [address] Christy Ortiz MD Squamous cell carcinoma of scalp (Primary Dx) 06/18/2023 Orders Only [facility] [address] [facility] Main Bldg, 9th [place] [address] Rc Ragsdale MD Squamous cell carcinoma of scalp (Primary Dx); Basal cell carcinoma of skin of right upper limb, including shoulder 06/11/2023 3:00 PM CDT [facility]Up [facility] [address] [place] [address], 9th [place] [address] Rc Ragsdale MD Neoplasm of uncertain behavior of skin (Primary Dx); History of squamous cell carcinoma of skin; Diffuse actinic hyperkeratosis; Seborrheic keratosis; Solar lentigo; Hemangioma of skin and subcutaneous tissue 06/11/2023 Travel 04/10/2023 Orders Only Neuroradiology [address] [place] [address] Barbara Brar MD 04/10/2023 Orders Only [facility] [address] [place] [address], 6th [place] [address] Selin Lambert PA Pituitary macroadenoma (Primary Dx) 04/06/2023 4:00 PM CDT Consult [facility]ocrine Center [address] [place] [address], [facility] [place] [address] Anny Carrasco MD Pituitary mass (Primary Dx); 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; Pituitary macroadenoma 04/06/2023 2:15 PM CDT Ancillary Procedure [facility] MRI [address] [facility], 4th [place] [address] Anny Carrasco MD Pituitary mass 04/06/2023 11:00 AM CDT - 04/06/2023 11:59 PM CDT Hospital Encounter [facility] [address] [place] [address], [place] [address] Anny Carrasco MD Pituitary mass Discharge Disposition: Home 04/06/2023 Travel 03/30/[address] Imaging [address] [facility], 7th [place] [address] Anita Guerra MD 03/29/2023 Orders Only [facility] [address] [place] [address], 6th [place] [address] Anny Carrasco MD Pituitary mass (Primary Dx) 03/28/2023 Orders Only [facility] [address] [place] [address], 6th [place] [address] Selin Lambert PA 03/23/2023 1:00 PM CDT Follow-Up [facility] [address] [place] [address], 6th Floor Elevator [address] [place] [id number] Della Wayne MD PhD 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) 03/23/2023 Travel 03/22/2023 10:00 AM CDT - 03/22/2023 11:59 PM CDT Hospital Encounter Main CT IMAGING [address] [place] [address], 3rd [place] [address] Ivy Dan APRN 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 Discharge Disposition: Home 03/22/2023 9:30 AM CDT - 03/22/2023 9:59 AM CDT Hospital Encounter [facility] [address] [place] [address], [place] [address] Ivy Dan, ALEXEI 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 Discharge Disposition: Home 03/22/2023 Travel 03/20/2023 8:00 AM CDT Procedure visit [facility] [address] [place] [address], Floor 6 [place] [phone] Oliver Samuels MD 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); Actinic keratosis; Squamous cell carcinoma of upper extremity <Left side> [C44.629 (ICD-10-CM)] 03/20/2023 Travel 03/13/2023 Telephone [facility] and [facility] [address] [facility], Floor 6 [place] [address] Hermes Yu, RN 03/09/2023 Lab Requisition [facility] Isiah Vo MD Chan, Maren M, MD Discharge Disposition: Home 02/16/2023 Telephone [facility] [address] [place] [phone] Oliver Ledesma APRN Discharge Call 02/15/2023 Telephone [facility] [address] [place] [address] Yohana Anderson, studio operation engineer Call 02/13/2023 8:00 AM CDT Procedure visit [facility] [address] [place] [address] [address] [place] [address] Oliver Samuels MD 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); Primary squamous cell carcinoma of left ear; Squamous cell carcinoma of skin of left ear; Squamous cell carcinoma of skin of left upper limb, including shoulder; Squamous cell carcinoma of skin of other part of face 02/13/2023 Refill [facility] [address] [place] [address] Main Bldg, 6th [place] [address] Ivy Dan, INSTRUCTIONAL AIDE 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 02/13/2023 Travel 02/05/2023 Telephone [facility] [address] [facility] [address] [place] [phone] Hermes Yu, RN 02/02/2023 Orders Only [facility] [address] [place] [address] Guzman Gambino MD Squamous cell carcinoma of skin of left ear (Primary Dx) 02/02/2023 Telephone [facility] [address] [place] [address] Main dg, 9th [place] [address] Santhosh Farrell MD 01/30/2023 9:30 AM CDT Consult [facility]erm[facility]ology [address] [place] [address] Main dg, 9th [place] [address] Rc Ragsdale MD History of squamous cell carcinoma of skin (Primary Dx); History of malignant basal cell neoplasm of skin; Neoplasm of uncertain behavior of skin; Diffuse actinic hyperkeratosis; Actinic keratosis; Seborrheic keratosis; Solar lentigo 01/30/2023 Travel 01/11/2023 Refill [facility] [address] [facility] Main Bldg, 6th [place] [address] Ivy Dan, ALEXEI 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 after 12/24/2022 Immunizations Name Administration Dates Next Due Moderna SARS-CoV-2 Vaccination 06/01/2021,2020,12/12/2020 Surgical History Surgery Date Site/Laterality Comments COLONOSCOPY AMPUTATION left hand, ring finger- 2019 LYMPH NODE BIOPSY inguinal-2018 BONE MARROW BIOPSY 2018 Medical History Medical History Date Comments Hypertension 2000 Hyperlipidemia 1999 Hearing loss 2002 Hearing Aids Functional visual loss 1999 Wear glas ses Allergic rhinitis Seasonal Dependence on continuous pos itive airway pressure ventilation 2009 Polyp of colon Arthritis Gout 2019 Anxiety Malignant lymphoma 2013 Follicular Ly mphoma [...] file Travel History Travel Start Travel End [place] 08/22/2023 09/07/2023 Obstetrics History Last Filed Vital Signs Vital Sign Reading Time Taken Comments Blood Pressure 114/71 12/03/2023 8:23 AM BREW HOUSE SUPERVISOR Pulse 85 12/03/2023 8:23 AM BREW HOUSE SUPERVISOR Temperature 36.5 C (97.7 F) 12/03/2023 8:23 AM CS T Respiratory Rate 18 12/03/2023 8:23 AM BREW HOUSE SUPERVISOR Oxygen Saturation 96% 12/03/2023 8:23 AM BREW HOUSE SUPERVISOR Inhaled Oxygen Concentration - - Weight 87.3 kg (192 lb 7.4 oz) 09/28/2023 10:07 AM BREW HOUSE SUPERVISOR Height - - Body Mass Index 32.07 09/06/2022 2:49 PM BREW HOUSE SUPERVISOR Plan of Treatment Upcoming Encounters Date Type Department Care Team Description 12/25/2023 2:20 PM CDT Telemedicine [facility] [address] [place] [address], 6th [place] [address] Della Wayne MD PhD [address] [place] [address] 02/19/2024 2:45 PM CDT Follow-Up [facility] - Dermatology [address] [place] [address], 9th [place] [address] Rc Ragsdale MD [address] [place] [phone] 03/14/2024 9:30 AM CDT Appointment [facility] [address] [place] [address], [facility] [place] [address] Selin Lambert PA [address] [place] [address] 03/14/2024 10:15 AM CDT Ancillary Procedure [facility] [address] [place] [address] Selin Lambert PA [address] [place] [phone] 03/14/2024 1:30 PM CDT Follow-Up End[facility] [address] [place] [address], 6th [place] [address] Anny Carrasco MD [address] [place] [address] 04/30/2024 10:15 AM CDT Appointment [facility] [address] [place] [address], [place] [address] Della Wayne MD PhD [address] [place] [address] 04/30/2024 11:30 AM CDT Appointment Main CT IMAGING [address] [facility] Main Bldg, 3rd [place] [address] Della Wayne MD PhD [facility] [place] [address] 05/01/2024 10:20 AM CDT Follow-Up [facility] [address] [place] [address] Main Bldg, 6th [place] [address] Della Wayne MD PhD [facility] [place] [address] Health Maintenance Due Date Last Done Comments COVID-19 Vaccination ( 23-24 season) 2023 06/01/2021, 01/09/2021, 12/12/2020 Medical Devices Implanted Type Area Investment Specialist Device Identifier Shelf Expiration Date Model / Serial / Lot Port Port Right: Chest Description:REMOVED Dental Implant Description:x2 dental implan ts Procedures Procedure Name Priority Date/Time Associated Diagnosis Comments OSI CHEST Routine 12/09/2023 6:13 PM BREW HOUSE SUPERVISOR Cancer OSI CT CHEST ABDOMEN PELVIS Routine 12/09/2023 8:36 AM BREW HOUSE SUPERVISOR 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 PATHOLOGY BIOPSY INTERPRETATION Routine 10/22/2023 8:49 AM BREW HOUSE SUPERVISOR Diffuse actinic hyperkeratosis History of squamous cell carcinoma of skin MRI PITUITARY W WO CONTRAST Routine 09/21/2023 1:16 PM BREW HOUSE SUPERVISOR Pituitary macroadenoma CT CHEST ABDOMEN PELVIS W CONTRAST Routine 09/20/2023 2:25 PM BREW HOUSE SUPERVISOR 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 CT NECK W CONTRAST LYMPHOMA Routine 09/20/2023 2:25 PM BREW HOUSE SUPERVISOR 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 HISTORICAL ABORH Routine 09/20/2023 12:0 4 PM BREW HOUSE SUPERVISOR 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 .CBC Routine 09/20/2023 10:27 AM BREW HOUSE SUPERVISOR 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 OSMOLALITY URINE Routine 09/20/2023 10:2 7 AM BREW HOUSE SUPERVISOR Pituitary macroadenoma INSULIN-LIKE GROWTH FACTOR 1 Routine 09/20/2023 10:27 AM BREW HOUSE SUPERVISOR Pituitary macroadenoma PROLACTIN Routine 09/20/2023 10:27 AM BREW HOUSE SUPERVISOR Pituitary macroadenoma FREE THYROXINE Routine 09/20/2023 10:27 AM BREW HOUSE SUPERVISOR Pituitary macroadenoma THYROID STIMULATING HORMONE Routine 09/20/2023 10:27 AM BREW HOUSE SUPERVISOR Pituitary macroadenoma CORTISOL, TOTAL Routine 09/20/2023 10:27 AM BREW HOUSE SUPERVISOR Pituitary macroadenoma ADRENOCORTICOTROPIC HORMONE Routine 09/20/2023 10:27 AM BREW HOUSE SUPERVISOR Pituitary macroadenoma TESTOSTERONE LEVEL Routine 09/20/2023 10 :27 AM BREW HOUSE SUPERVISOR Pituitary macroadenoma LUTEINIZING HORMONE Routine 09/20/2023 1 0:27 AM BREW HOUSE SUPERVISOR Pituitary macroadenoma FOLLICLE STIMULATING HORMONE LEVEL Routine 09/20/2023 10:27 AM BREW HOUSE SUPERVISOR Pituitary macroadenoma TYPE AND SCREEN Routine 09/20/2023 10:27 AM BREW HOUSE SUPERVISOR 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 PHOSPHORUS LEVEL Routine 09/20/2023 10:2 7 AM BREW HOUSE SUPERVISOR 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 MAGNESIUM LEVEL Routine 09/20/2023 10:27 AM BREW HOUSE SUPERVISOR 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 LACTATE DEHYDROGENASE Routine 09/20/2023 10:27 AM BREW HOUSE SUPERVISOR 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 URIC ACID Routine 09/20/2023 10:27 AM BREW HOUSE SUPERVISOR 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 COMPREHENSIVE METABOLIC PANEL Routine 09/20/2023 10:27 AM BREW HOUSE SUPERVISOR 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 COMPLETE BLOOD COUNT W/ DIFFERENTIAL Routine 09/20/2023 10:27 AM BREW HOUSE SUPERVISOR Follicular lymphoma grade II of lymph nodes [...] History of squamous cell carcinoma of skin after 12/24/2022 Results * OSI Chest (12/09/2023 6:13 PM BREW HOUSE SUPERVISOR) Narrative Systemgenerated, Documentation - 12/14/2023 6:13 PM BREW HOUSE SUPERVISOR Study acquired at another institution. For comparison only. No [facility] interpretation requested or available. Anny Carrasco MD IMG OUTSIDE IMAGE OR DERABLES * OSI CT Chest Abdomen Pelvis (12/09/2023 8:36 AM BREW HOUSE SUPERVISOR) Anatomical Region Laterality Modality Chest, Abdomen, Pelvis Other 12/17/2023 11:2 9 AM BREW HOUSE SUPERVISOR Impressions 12/17/2023 12:29 PM BREW HOUSE SUPERVISOR 1. Elevation of right hemidiaphragm with adjacent atelectasis or consolidation, improved from previous. 2. Stable posterior mediastinal soft tissue mass. 3. Areas of mild mesenteric and retroperitoneal adenopathy are stable. 4. Stable mild hepatomegaly. 5. Overall, no significant change. ACTIONABLE ITEMS/RECOMMENDATIONS*: None. Narrative 12/17/2023 12:29 PM BREW HOUSE SUPERVISOR FULL RESULT: Examination: OSI CT CHEST ABDOMEN PELVIS on 12/09/2023 8:36 AM. Clinical History: 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 Indication: Disagreement with the outside report (report required). Comparison: 09/20/2023. Technique: OSI CT CHEST ABDOMEN PELVIS. Findings: CHEST: Lungs and Pleura: The tracheobronchial tree is clear with no endobronchial lesions. The pulmonary parenchyma demonstrates atelectatic changes in the right lung base, less pronounced than on previous. No pleural effusion. Cardiomediastinum: The heart is normal in size. No pericardial effusion. Elevated right hemidiaphragm is noted. Lymph nodes: A 1.1 cm superior mediastinal node on series 101, image 13 measured 1.1 cm. A 2.4 cm posterior mediastinal para-aortic soft tissue lesion on image 72 measured 2.5 cm. ABDOMEN AND PELVIS: Hepatobiliary: No suspicious hepatic lesion. No biliary dilatation. The gallbladder is contracted. Spleen: The spleen is enlarged measuring 14.6 cm in length Pancreas: No mass or ductal dilatation. Adrenal Glands: No mass. Kidneys, Ureters, Bladder: No hydronephrosis. No suspicious renal lesion. A 1.1 cm right-sided bladder calculus is seen, similar to previous. Gastrointestinal Tract: No dilated loops of large or small bowel are seen suggest obstruction. Diverticulosis is seen without evidence of diverticulitis. Pelvic Organs: The prostate gland measures 4.5 x 5.1 cm in maximal transverse diameter. Peritoneum/Retroperitoneum: No ascites. Stranding is seen along the root of the mesentery consistent with mesenteric panniculitis. Lymph Nodes: Subcentimeter mesenteric nodes are seen measuring up to 6 mm on series 101, image 99, similar to previous. A new 8 mm aortocaval node on image 124 stable. MUSCULOSKELETAL: Bone windows demonstrate degenerative changes. Procedure Note Martin Gallegos MD - 12/17/2023 FULL RESULT: Examination: OSI CT CHEST ABDOMEN PELVIS on 12/09/2023 8:36 AM. Clinical History: Follicular lymphoma grade II of lymph nodes of multiplesites Indication: Disagreement with the outside report (report required). Comparison: 09/20/2023. Technique: OSI CT CHEST ABDOMEN PELVIS. Findings: CHEST: Lungs and Pleura: The tracheobronchial tree is clear with no endobronchiallesions. The pulmonary parenchyma demonstrates atelectatic changes in theright lung base, less pronounced than on previous. No pleural effusion. Cardiomediastinum: The heart is normal in size. No pericardial effusion.Elevated right hemidiaphragm is noted. Lymph nodes: A 1.1 cm superior mediastinal node on series 101, image 13measured 1.1 cm. A 2.4 cm posterior mediastinal para-aortic soft tissuelesion on image 72 measured 2.5 cm. ABDOMEN AND PELVIS: Hepatobiliary: No suspicious hepatic lesion. No biliary dilatation. Thegallbladder is contracted. Spleen: The spleen is enlarged measuring 14.6 cm in length Pancreas: No mass or ductal dilatation. Adrenal Glands: No mass. Kidneys, Ureters, Bladder: No hydronephrosis. No suspicious renal lesion.A 1.1 cm right-sided bladder calculus is seen, similar to previous. Gastrointestinal Tract: No dilated loops of large or small bowel are seensuggest obstruction. Diverticulosis is seen without evidence ofdiverticulitis. Pelvic Organs: The prostate gland measures 4.5 x 5.1 cm in maximaltransverse diameter. Peritoneum/Retroperitoneum: No ascites. Stranding is seen along the rootof the mesentery consistent with mesenteric panniculitis. Lymph Nodes: Subcentimeter mesenteric nodes are seen measuring up to 6 mmon series 101, image 99, similar to previous. A new 8 mm aortocaval nodeon image 124 stable. MUSCULOSKELETAL: Bone windows demonstrate degenerative changes. IMPRESSION: 1. Elevation of right hemidiaphragm with adjacent atelectasis orconsolidation, improved from previous. 2. Stable posterior mediastinal soft tissue mass. 3. Areas of mild mesenteric and retroperitoneal adenopathy are stable. 4. Stable mild hepatomegaly. 5. Overall, no significant change. ACTIONABLE ITEMS/RECOMMENDATIONS*: None. Della Wayne MD PhD IMG OUTSIDE IMAGE OR DERABLES * Pathology Biopsy Interpretation (10/22/2023 8:49 AM BREW HOUSE SUPERVISOR) Only the most recent of4 resultswithin the time period is included. Submitted Clinical History A: SCC vs. BCC vs. ISK B: SCC vs. ISK vs. AK C: Macular SK vs. AMP 10/23/2023 5:13 PM BREW HOUSE SUPERVISOR [facility] Diagnosis A: Skin, right [...] tissue edges. See comment. 10/23/2023 5:13 PM [facility] Comment C. Multiple additional deeper tissue sections have been cut and examined. There is focal dermal fibrosis consistent with a prior trauma. If there are prior biopsies from this anatomic area, correlation is recommended. 10/23/2023 5:13 PM [facility] Gross Description A: Skin, [...] submitted in C1. ET 10/23/2023 5:13 PM [facility] Disclaimer "Some tests reported here may have been developed and performance characteristics determined by [facility] Pathology and Laboratory Medicine. These tests have not been specifically cleared or approved by the U.S. Food and Drug Administration. If applicable, controls were reviewed and showed appropriate reactivity." 10/23/2023 5:13 PM [facility] Tissue (Skin) 10/22/2023 8:4 9 AM [employer]SE [employer]PERVIS[employer] 10/22/2023 10:39 AM [employer]SE SUPERVISOR Tissue specimen (specimen) (Skin) 10/22/2023 8:56 AM [employer]SE SUPERVISOR 10/22/2023 10:39 AM [employer]SE SUPERVISOR Tissue specimen (specimen) (Skin) 10/22/2023 9:00 AM [employer]SE SUPERVISOR 10/22/2023 10:39 AM [employer]SE [employer]PER[employer] Rc Ragsdale MD LAB PATHOLOGY ORDERA BLES [facility] [place] [address] [place] [address], [place] * MRI Pituitary with and without Contrast (09/21/2023 1:16 PM [employer] HOUSE SUPERVISOR) Only the most recent of2 resultswithin the time period is included. Anatomical Region Laterality Modality Head Magnetic Resonan ce 09/21/2023 1:26 PM [employer] HOUSE SUPERVISOR Impressions 09/21/2023 1:43 PM [employer]SE SUPERVISOR Stable presumed pituitary adenoma with right cavernous sinus involvement. ACTIONABLE ITEMS/RECOMMENDATIONS: None. Narrative 09/21/2023 1:43 PM [employer] HOUSE SUPERVISOR FULL RESULT: Examination: MRI PITUITARY W WO [...] cavernous sinusinvolvement. ACTIONABLE ITEMS/RECOMMENDATIONS: None. Selin LOPEZ IMG MRI ORDERABLE S * CT Neck with Contrast Lymphoma (09/20/2023 2:25 PM [employer] HOUSE SUPERVISOR) Only the most recent of2 resultswithin the time period is included. Anatomical Region Laterality Modality Neck Computed Tomogra phy 09/20/2023 6:16 PM [employer] HOUSE SUPERVISOR Impressions 09/20/2023 6:21 PM [employer] HOUSE SUPERVISOR 1. No cervical lymphadenopathy. 2. No acute sinusitis. ACTIONABLE ITEMS/RECOMMENDATIONS: None. Narrative 09/20/2023 6:21 PM BRE[employer] HOUSE SUPERVISOR FULL RESULT: Examination: CT NECK W CONTRAST [...] Abdomen Pelvis with Contrast (09/20/2023 2:25 PM [employer] HOUSE SUPERVISOR) Anatomical Region Laterality Modality Abdomen, Pelvis, Chest Computed Tomography 09/20/2023 2:54 PM [employer] HOUSE SUPERVISOR Impressions 09/20/2023 4:08 PM [employer] HOUSE SUPERVISOR 1. Groundglass opacities in the right lower [...] ITEMS/RECOMMENDATIONS: See Impression Narrative 09/20/2023 4:08 PM BREW HOUSE SUPERVISOR FULL RESULT: Examination: CT CHEST ABDOMEN PELVIS [...] of the spleen. ACTIONABLE ITEMS/RECOMMENDATIONS: See Impression Ivy Dan INSTRUCTIONAL AIDE IMG CT ORDERAB LES * Historical ABORh (09/20/2023 12:04 PM BRE[employer] HOUSE SUPERVISOR) Pathologist [facility] ABORh O POS 09/20/2023 12:04 PM [employer]SE SUPERVISOR [facility] Blood Peripheral blood specimen / Unknown 09/20/2023 12:04 PM [employer] HOUSE SUPERVISOR 09/20/2023 12:04 PM [employer] HOUSE SUPERVISOR Ivy Dan INSTRUCTIONAL AIDE BLOOD BANK SERGIO T ORDERABLES [facility] [address] [place] [address] * (ABNORMAL) .CBC (09/20/2023 10:27 AM BREW HOUSE SUPERVISOR) Only the most recent of2 resultswithin the time period is included. [facility] White Blood Cell 4.9 4.1 - 10.5 K/uL 09/20/2023 11:16 AM BRE[employer] HOUSE SUPERVISOR [facility] Comment:This result was prev iously suppressed from the chart. Red Blood Cell 4.56 4.30 - 6.04 M/uL 09/20/2023 11:16 AM BRE[employer] HOUSE SUPERVISOR [facility] Hemoglobin 14.6 13.3 - 17.4 g/dL 09/20/2023 11:16 AM [facility] Hematocrit 42.9 39.5 - 51.8 % 09/20/2023 11:16 AM [facility] Mean Cell Volume 94 82 - 99 fL 09/20/2023 11:16 AM [facility] Mean Cell Hemoglobin 32.0 26.6 - 33.2 pg 09/20/2023 11:16 AM [facility] Mean Cell Hemoglobin Concentration 34.0 31.1 - 35.2 g/dL 09/20/2023 11:16 AM [facility] RDW-SD 48.3 37.5 - 49.7 fL 09/20/2023 11:16 AM [facility] Red Cell Diameter Width 13.9 11.6 - 15.5 % 09/20/2023 11:16 AM [facility] Platelet 103(L) 160 - 397 K/uL 09/20/2023 11:16 AM [facility] Comment:This result was prev iously suppressed from the chart. Mean Platelet Volume 10.7 9.1 - 12.6 fL 09/20/2023 11:16 AM [facility] Comment:This result was prev iously suppressed from the chart. INRBC 0.0 0.0 - 0.1 /100 WBC 09/20/2023 11:16 AM [facility] Comment: The INRBC (instrument NRBC) value reflects [...] 43.2 - 72.7 % 09/20/2023 11:16 AM [facility] Comment:This result was prev iously suppressed from the chart. Lymphocyte % 15.8(L) 16.8 - 46.2 % 09/20/2023 11:16 AM [facility] Comment:This result was prev iously suppressed from the chart. Monocyte % 7.1 5.1 - 12.5 % 09/20/2023 11:16 AM [facility] Comment:This result was prev iously suppressed from the chart. Eosinophil % 2.0 0.4 - 6.3 % 09/20/2023 11:16 AM [facility] Comment:This result was prev iously suppressed from the chart. Basophil % 0.4 0.2 - 1.4 % 09/20/2023 11:16 AM [facility] Comment:This result was prev iously suppressed from the chart. IGRE % 0.6 0.1 - 1.5 % 09/20/2023 11:16 AM [facility] Comment: The IGRE% includes Metamyelocytes, Myelocytes and Promyelocytes. This result was previously suppressed from the chart. Neutrophil Abs 3.65 1.95 - 7.25 K/uL 09/20/2023 11:16 AM [facility] Comment:This result was prev iously suppressed from the chart. Lymphocyte Abs 0.78(L) 1.01 - 3.24 K/uL 09/20/2023 11:16 AM [facility] Comment:This result was prev iously suppressed from the chart. Monocyte Abs 0.35 0.24 - 0.85 K/uL 09/20/2023 11:16 AM [facility] Comment:This result was prev iously suppressed from the chart. Eosinophil Abs 0.10 0.02 - 0.50 K/uL 09/20/2023 11:16 AM [facility] Comment:This result was prev iously suppressed from the chart. Basophil Abs 0.02 0.02 - 0.09 K/uL 09/20/2023 11:16 AM [facility] Comment:This result was prev iously suppressed from the chart. IG Abs 0.03 0.01 - 0.12 K/uL 09/20/2023 11:16 AM [facility] Comment:This result was prev iously suppressed from the chart. Blood Venipuncture / Unknown 09/20/2023 10:27 AM [employer] HOUSE SUPERVISOR 09/20/2023 10:50 AM [facility] Ivy Dan APRN LAB BLOOD ORDE МАРИЯ Performing Organization Address [facility]/ZIP Co de Phone Number [facility] Unless otherwise noted, all lab tests performed by: Division of Pathology and Laboratory Medicine [address] [place] [address] * Insulin-Like Growth Factor I (09/20/2023 10:27 AM BRE[employer] HOUSE SUPERVISOR) Only the most recent of2 resultswithin the time period is included. Pathologist [facility] IGF-1, LC/MS, S 104 32 - 209 ng/mL 09/25/2023 3:07 PM BREW HOUSE SUPERVISOR [facility] IGF Z-score 0.00 -2.0 - 2.0 SD 09/25/2023 3:07 PM [facility] Comment: ADDITIONAL INFORMATION This test was developed and its performance characteristics determined by [facility] in a manner consistent with CLIA requirements. This test has not been cleared or approved by the U.S. Food and Drug Administration. Test Performed by: [facility] [place] [address] Pier Hand: Riley Hernandez M.D. Ph.D.; CLIA# [id number] Blood Venipuncture / Unknown 09/20/2023 10:27 AM [employer]W HOUSE SUPERVISOR 09/20/2023 10:50 AM [employer] HOUSE SUPERVISOR Selin LOPEZ LAB BLOOD ORDERAB JIM Performing Organization Address [facility]/ZIP Co de Phone Number [facility] CAR[facility] * (ABNORMAL) Comprehensive Metabolic Panel (09/20/2023 10:27 AM BREW HOUSE SUPERVISOR) [facility] Bilirubin Total 0.5 <=1.2 mg/dL 09/20/2023 11:38 AM [employer] HOUSE SUPERVISOR [facility] Comment: Indocyanine Green (ICG) may cause falsely elevated bilirubin results. Total and direct bilirubin must not be measured from samples containing indocyanine green. False elevation of total bilirubin can be seen in patients with IgG concentrations above 28 g/L. This result was previously suppressed from the chart. Bilirubin Direct <0.2 <=0.3 mg/dL 09/20/2023 11:38 AM [facility] Comment: Indocyanine Green (ICG) may cause falsely elevated bilirubin results. Total and direct bilirubin must not be measured from samples containing indocyanine green. This result was previously suppressed from the chart. Bilirubin Indirect 2022 11:38 AM [facility] Comment:Unable to calculate Indirect Bilirubin result due to some parameters are outside reportable range eGFR 85 >=60 mL/min/1. 73 sq. m 09/20/2023 11:38 AM [facility] Comment: The eGFRcr is calculated with [...] 6.4 - 8.3 gm/dL 09/20/2023 11:38 AM [facility] Comment:This result was prev iously suppressed from the chart. Calcium Level Total 9.6 8.2 - 10.2 mg/dL 09/20/2023 11:38 AM [facility] Comment:This result was prev iously suppressed from the chart. Alkaline Phosphatase 70 40 - 129 U/L 09/20/2023 11:38 AM [facility] Comment:This result was prev iously suppressed from the chart. Albumin Level 4.6 3.5 - 5.2 gm/dL 09/20/2023 11:38 AM [facility] Comment:This result was prev iously suppressed from the chart. AST 16 <=40 U/L 09/20/2023 11:38 AM [facility] Comment:This result was prev iously suppressed from the chart. ALT 23 <=41 U/L 09/20/2023 11:38 AM [facility] Comment:This result was prev iously suppressed from the chart. Sodium Level 140 136 - 145 mmol/L 09/20/2023 11:38 AM [facility] Comment:This result was prev iously suppressed from the chart. Potassium Level 4.1 3.4 - 4.5 mmol/L 09/20/2023 11:38 AM [facility] Comment:This result was prev iously suppressed from the chart. Chloride 103 98 - 107 mmol/L 09/20/2023 11:38 AM [facility] Comment:This result was prev iously suppressed from the chart. CO2 31(H) 22 - 29 mmol/L 09/20/2023 11:38 AM [facility] Comment:This result was prev iously suppressed from the chart. Anion Gap 6 4 - 14 mmol/L 09/20/2023 11:38 AM [facility] Comment:This result was prev iously suppressed from the chart. Creatinine 0.96 0.67 - 1.17 mg/dL 09/20/2023 11:38 AM [facility] Comment:This result was prev iously suppressed from the chart. BUN 11 6 - 23 mg/dL 09/20/2023 11:38 AM [facility] Comment:This result was prev iously suppressed from the chart. Glucose Level 158(H) 70 - 99 mg/dL 09/20/2023 11:38 AM [facility] Comment: Effective 05/10/16, the glucose reference intervals have been updated based on [place] [employer] guidelines (Standards of Medical Care [...] Blood Venipuncture / Unknown 09/20/2023 10:27 AM [employer] HOUSE SUPERVISOR 09/20/2023 10:50 AM [employer] HOUSE SUPERVISOR Ivy Hardik Dan APRN LAB BLOOD ETELVINA HSIEH Performing Organization Address [facility] Co de Phone Number [facility] Unless otherwise noted, all lab tests performed by: Division of Pathology and Laboratory Medicine [address] [place] [address] * ACTH (09/20/2023 10:27 AM BRE[employer] HOUSE SUPERVISOR) Only the most recent of2 resultswithin the time period is included. [facility] ACTH 37 7 - 63 pg/mL 09/20/2023 1:55 PM [employer] HOUSE SUPERVISOR [facility] Blood Venipuncture / Unknown 09/20/2023 10:27 AM BREW HOUSE SUPERVISOR 09/20/2023 10:51 AM [employer] HOUSE SUPERVISOR Narrative [facility] - 09/20/2023 1:55 PM [employer] HOUSE SUPERVISOR Reference range established based on adult population (7 - 10am draws). No established reference values for p.m. draws. Results greater than 1826 pg/mL may not be reliable due to matrix effect with extended dilution as it exceeds the state game warden's recommended limit. ACTH reference intervals are established for the morning hours from 7-10 am. Due to the circadian rhythm of ACTH levels in plasma, the sample collection time must be noted. Caution should be exercised when interpreting such values and done in conjunction with clinical context. Selin LOPEZ LAB BLOOD ORDERAB LES Performing Organization Address [facility] Co de Phone Number [facility] Unless otherwise noted, all lab tests performed by: Division of Pathology and Laboratory Medicine [address] [place] [address] * Osmolality Urine (09/20/2023 10:27 AM BREW HOUSE SUPERVISOR) Only the most recent of2 resultswithin the time period is included. [facility] Urine Osmolality 800 50 - 1,400 mOsm/kg H2O 09/20/2023 12:01 PM [facility] Comment:Urinary osmolality m ay vary widely, depending on the state of hydration. Random urine osmolality can range from 50 to 1400 mOsm/kg H2O depending on fluid intake. In individuals on average fluid intake, urine osmolality is typically 300-900 mOsm/kg H2O. Units of measure: mOsm per Kg of water. Urine (Urine Clean Catch) Non-blood Collection / Unknown 09/20/2023 10:27 AM BREW HOUSE SUPERVISOR 09/20/2023 10:35 AM BRE[employer] HOUSE SUPERVISOR Selin LOPEZ URINE ORDERABLES Performing Organization Address [facility] de Phone Number [facility] Unless otherwise noted, all lab tests performed by: Division of Pathology and Laboratory Medicine [address] [place] [address] * Prolactin (09/20/2023 10:27 AM [facility]) Only the most recent of2 resultswithin the time period is included. Prolactin Level 8.4 4.0 - 15.2 ng/mL 09/20/2023 11:57 AM [facility] Blood Venipuncture / Unknown 09/20/2023 10:27 AM [employer] HOUSE SUPERVISOR 09/20/2023 10:50 AM [employer] HOUSE SUPERVISOR Narrative [facility] - 09/20/2023 11:57 AM [employer] HOUSE SUPERVISOR Results greater than 4700.0 ng/mL may not be reliable due to matrix effect with extended dilution as it exceeds the state game warden s recommended limit. Caution should be exercised when interpreting such values and done in conjunction with clinical context. Selin LOPEZ LAB BLOOD ORDERAB LES Performing Organization Address [facility] Co de Phone Number [facility] Unless otherwise noted, all lab tests performed by: Division of Pathology and Laboratory Medicine [address] [place] [id number] * Type and Screen (09/20/2023 10:27 AM [facility]) ABORh O POS 09/20/2023 10:14 AM [facility] ABSC Negative 09/20/2023 10:14 AM [facility] Clot Expiration 09/23/2023 23:59 09/20/2023 10:14 AM [employer] HOUSE SUPERVISOR [facility] Historical Record Check Complete 09/20/2023 10:14 AM BRE[employer] HOUSE SUPERVISOR [facility] Blood Venipuncture / Unknown 09/20/2023 10:27 AM [employer]W HOUSE SUPERVISOR 09/20/2023 10:50 AM BRE[employer] HOUSE SUPERVISOR Ivy Dan INSTRUCTIONAL AIDE BLOOD BANK SERGIO T ORDERABLES Performing Organization Address City/[facility]/ZIP Co de Phone Number [facility] [address] [place] [address] * Uric Acid (09/20/2023 10:27 AM BREW HOUSE SUPERVISOR) Only the most recent of2 resultswithin the time period is included. Uric Acid 3.4 3.4 - 7.0 mg/dL 09/20/2023 11:37 AM BREW HOUSE SUPERVISOR [facility] Blood Venipuncture / Unknown 09/20/2023 10:27 AM BREW HOUSE SUPERVISOR 09/20/2023 10:50 AM [employer] HOUSE SUPERVISOR Ivy Dan APRN LAB BLOOD ORDE RABLES Performing Organization Address City/[facility] Co de Phone Number [facility] Unless otherwise noted, all lab tests performed by: Division of Pathology and Laboratory Medicine [address] [place] [address] * TSH (09/20/2023 10:27 AM BREW HOUSE SUPERVISOR) Only the most recent of2 resultswithin the time period is included. Thyroid Stimulating Hormone 1.82 0.27 - 4.20 mcunit/mL 09/20/2023 11:56 AM BREW HOUSE SUPERVISOR [facility] Blood Venipuncture / Unknown 09/20/2023 10:27 AM BREW HOUSE SUPERVISOR 09/20/2023 10:50 AM [employer] HOUSE SUPERVISOR Selin LOPEZ LAB BLOOD ORDERAB LES [facility] Unless otherwise noted, all lab tests performed by: Division of Pathology and Laboratory Medicine [address] [place] [address] * Free T4 (09/20/2023 10:27 AM BRE[employer] HOUSE SUPERVISOR) Only the most recent of2 resultswithin the time period is included. Pathologist [facility] T4 (Thyroxine) Free 1.12 0.93 - 1.70 ng/dL 09/20/2023 11:56 AM BREW HOUSE SUPERVISOR [facility] Blood Venipuncture / Unknown 09/20/2023 10:27 AM BREW HOUSE SUPERVISOR 09/20/2023 10:50 AM [employer] HOUSE SUPERVISOR Selin LOPEZ LAB BLOOD ORDERAB LES [facility] Unless otherwise noted, all lab tests performed by: Division of Pathology and Laboratory Medicine [address] [place] [address] * Testosterone (09/20/2023 10:27 AM BRE[employer] HOUSE SUPERVISOR) Only the most recent of2 resultswithin the time period is included. [facility] Testosterone Total 300 193 - 740 ng/dL 09/20/2023 11:57 AM BREW HOUSE SUPERVISOR [facility] Blood Venipuncture / Unknown 09/20/2023 10:27 AM BREW HOUSE SUPERVISOR 09/20/2023 10:50 AM BRE[employer] HOUSE SUPERVISOR Narrative [facility] - 09/20/2023 11:57 AM [employer] HOUSE SUPERVISOR Reference Ranges: Male: Age 20 - 49 249 - 836 Age >=50 193 - 740 Female: Age 20 - 49 8 - 48 Age >=50 3 - 41 Selin LOPEZ LAB BLOOD ORDERAB LES [facility] Unless otherwise noted, all lab tests performed by: Division of Pathology and Laboratory Medicine [address] [place] [address] * Phosphorus Level (09/20/2023 10:27 AM BREW HOUSE SUPERVISOR) Only the most recent of2 resultswithin the time period is included. [facility] Phosphorus Level 2.7 2.5 - 4.5 mg/dL 09/20/2023 11:37 AM BREW HOUSE SUPERVISOR [facility] Blood Venipuncture / Unknown 09/20/2023 10:27 AM [employer] HOUSE SUPERVISOR 09/20/2023 10:50 AM [employer]SE SUPER[employer] Ivy Dan APRN LAB BLOOD ORDE ELIERJIM Performing Organization Address City/[facility]/ZIP Co de Phone Number [facility] Unless otherwise noted, all lab tests performed by: Division of Pathology and Laboratory Medicine [address] [place] [address] * Magnesium Level (09/20/2023 10:27 AM BREW HOUSE SUPERVISOR) Only the most recent of2 resultswithin the time period is included. Magnesium Level 1.9 1.6 - 2.6 mg/dL 09/20/2023 11:37 AM BREW HOUSE SUPERVISOR [facility] Blood Venipuncture / Unknown 09/20/2023 10:27 AM [employer] HOUSE SUPERVISOR 09/20/2023 10:50 AM [employer]SE SUPERVISOR Ivy Dan APRN LAB BLOOD ORDE МАРИЯ Performing Organization Address City/[facility]/ZIP Co de Phone Number [facility] Unless otherwise noted, all lab tests performed by: Division of Pathology and Laboratory Medicine [address] [place] [address] * LDH (09/20/2023 10:27 AM [employer] HOUSE SUPERVISOR) Only the most recent of2 resultswithin the time period is included. LDH 149 135 - 225 U/L 09/20/2023 12:33 PM BREW HOUSE SUPERVISOR [facility] Blood Venipuncture / Unknown 09/20/2023 10:27 AM [employer]W HOUSE SUPERVISOR 09/20/2023 10:50 AM BREW HOUSE SUPERVISOR Narrative [facility] - 09/20/2023 12:33 PM [employer] HOUSE SUPERVISOR Results greater than 1651 U/L may not be reliable due to matrix effect with extended dilution as it exceeds the state game warden's recommended limit. Caution should be exercised when interpreting such values and done in conjunction with clinical context. Ivy Dan APRN LAB BLOOD ORDE МАРИЯ Performing Organization Address City/[facility]/ZIP Co de Phone Number [facility] Unless otherwise noted, all lab tests performed by: Division of Pathology and Laboratory Medicine [address] [place] [address] * (ABNORMAL) LH (09/20/2023 10:27 AM [employer] HOUSE SUPERVISOR) Only the most recent of2 resultswithin the time period is included. Luteinizing Hormone 8.9(H) 1.7 - 8.6 mIU/mL 09/20/2023 11:57 AM [employer] HOUSE SUPERVISOR [facility] Blood Venipuncture / Unknown 09/20/2023 10:27 AM [employer] HOUSE SUPERVISOR 09/20/2023 10:50 AM BREW HOUSE SUPERVISOR Narrative [facility] - 09/20/2023 11:57 AM [employer]SE SUPERVISOR Reference range established based on adult population Selin LOPEZ LAB BLOOD ORDERAB LES Performing Organization Address [facility] Co de Phone Number [facility] Unless otherwise noted, all lab tests performed by: Division of Pathology and Laboratory Medicine [address] [place] [address] * (ABNORMAL) FSH Level (09/20/2023 10:27 AM [employer] HOUSE SUPERVISOR) Only the most recent of2 resultswithin the time period is included. Follicle Stimulating Hormone 13.2(H) 1.5 - 12.4 mIU/mL 09/20/2023 11:57 AM [employer] HOUSE SUPERVISOR [facility] Blood Venipuncture / Unknown 09/20/2023 10:27 AM [employer] HOUSE SUPERVISOR 09/20/2023 10:50 AM [employer] HOUSE SUPERVISOR Narrative [facility] - 09/20/2023 11:57 AM [employer]SE SUPERVISOR Reference range established based on adult population Selin LOPEZ LAB BLOOD ORDERAB LES [facility] Unless otherwise noted, all lab tests performed by: Division of Pathology and Laboratory Medicine [address] [place] [address] * Cortisol, Total (09/20/2023 10:27 AM [employer] HOUSE SUPERVISOR) Only the most recent of2 resultswithin the time period is included. Cortisol 9.96 mcg/dL 09/20/2023 11:56 AM BREW HOUSE SUPERVISOR [facility] Blood Venipuncture / Unknown 09/20/2023 10:27 AM [employer] HOUSE SUPERVISOR 09/20/2023 10:50 AM BRE[employer] HOUSE SUPERVISOR Narrative [facility] - 09/20/2023 11:56 AM [employer] HOUSE SUPERVISOR Cortisol reference intervals are established for the [...] mcg/dL Selin LOPEZ LAB BLOOD ORDERAB LES [facility] Unless otherwise noted, all lab tests performed by: Division of Pathology and Laboratory Medicine [address] [place] [address] * U Sp Grav (04/06/2023 11:54 AM CDT) UA Spec Grav 1.030 1.003 - 1.035 [facility] Urine 04/06/2023 11:5 4 AM CDT 04/06/2023 12:18 PM CDT Narrative [facility] - 04/06/2023 12:49 PM CDT Pre-clinic endo labs DO NOT have to be fasting AM (as patient is coming from out of town). Anny Carrasco MD URINE ORDERABLES [facility] Unless otherwise noted, all lab tests performed by: Division of Pathology and Laboratory Medicine [address] [place] [id number] * Sodium Level (04/06/2023 11:54 AM CDT) Sodium Lvl 139 136 - 145 mEq/L [facility] Blood 04/06/2023 11:5 4 AM CDT 04/06/2023 12:02 PM CDT Narrative [facility] - 04/06/2023 12:37 PM CDT Pre-clinic endo labs DO NOT have to be fasting AM (as patient is coming from out of town). Anny Carrasco MD LAB BLOOD ORDERABLES Performing Organization Address City/[facility]/ZIP Co de Phone Number [facility] Unless otherwise noted, all lab tests performed by: Division of Pathology and Laboratory Medicine [address] [place] [phone] * Osmolality (04/06/2023 11:54 AM CDT) Osmolality 292 275 - 300 mOsm/kg H2O [facility] Comment:Units in mOsm per kg of water. Blood 04/06/2023 11:5 4 AM CDT 04/06/2023 12:09 PM CDT Narrative [facility] - 04/06/2023 12:45 PM CDT Pre-clinic endo labs DO NOT have to be fasting AM (as patient is coming from out of town). Anny Carrasco MD LAB BLOOD ORDERABLES Performing Organization Address [facility] Co de Phone Number [facility] Unless otherwise noted, all lab tests performed by: Division of Pathology and Laboratory Medicine [address] [place] [address] * CT Chest Abdomen Pelvis with Contrast Lymphoma (03/22/2023 1:03 PM CDT) Anatomical Region Laterality Modality Chest, Abdomen, Pelvis [...] mildchanges of colitis not excluded. Ivy Dan INSTRUCTIONAL AIDE IMG CT ORDERAB LES * .Serum Creatinine (03/22/2023 10:06 AM CDT) Pathologist [facility] Creatinine 1.00 0.67 - 1.17 mg/dL [facility] Blood 03/22/2023 10:0 6 AM CDT 03/22/2023 10:48 AM CDT Ivy Dan INSTRUCTIONAL AIDE LAB BLOOD ETELVINA HSIEH [facility] Unless otherwise noted, all lab tests performed by: Division of Pathology and Laboratory Medicine [address] [place] [id number] * Clot Expiration Date (03/22/2023 10:06 AM CDT) T & S Expiration 03/25/2023 [facility] Blood 03/22/2023 10:0 6 AM CDT 03/22/2023 11:41 AM CDT Ivy Dye Sy INSTRUCTIONAL AIDE BLOOD BANK SERGIO T ORDERABLES Performing Organization Address [facility] Co de Phone Number [facility] Unless otherwise noted, all lab tests performed by: Division of Pathology and Laboratory Medicine [address] [place] [phone] * Glomerular Filtration Rate (03/22/2023 10:06 AM CDT) eGFR 81 >=60 mL/min/1.7 3 sq. m [facility] Comment: The eGFRcr is calculated with the [...] Ivy Dan APRN LAB BLOOD ORDE RABLES [facility] Unless otherwise noted, all lab tests performed by: Division of Pathology and Laboratory Medicine [address] [place] [id number] * Fractionated Bilirubin (03/22/2023 10:06 AM CDT) Bili Total 0.9 <=1.2 mg/dL [facility] Comment: Indocyanine Green (ICG) may cause falsely elevated bilirubin results. Total and direct bilirubin must not be measured from samples containing indocyanine green. False elevation of total bilirubin can be seen in patients with IgG concentrations above 28 g/L. Bili Direct 0.2 <=0.3 mg/dL [facility] Comment:Indocyanine Green (I CG) may cause falsely elevated bilirubin results. Total and direct bilirubin must not be measured from samples containing indocyanine green. Bili Indirect 0.7 0.0 - 0.9 mg/dL [facility] Blood 03/22/2023 10:0 6 AM CDT 03/22/2023 10:48 AM CDT Ivy Dan APRN LAB BLOOD ORDE RABLES [facility] Unless otherwise noted, all lab tests performed by: Division of Pathology and Laboratory Medicine [address] [place] [address] * TMP Interpretation Antibody Screen Negative (03/22/2023 10:06 AM CDT) TMP Auto Neg ABSC Interp At the present time, patient plasma shows no evidence of RBC alloantibodi es. [facility] Comment: YONATAN CLINTON MD, PhD - [id number] Dictated by: YONATAN CLINTON MD, PhD - [id number] Dictated Date/Time: 03.22.2023 18:05 PM CDT Transcribed Date/Time: 03.22.2023 18:05 PM CDT Electronically Signed By: YONATAN CLINTON MD, PhD - [id number] on 03.22.2023 18:05 PM Blood 03/22/2023 10:0 6 AM CDT 03/22/2023 11:41 AM CDT Ivy Dan APRN BLOOD BANK SERGIO T ORDERABLES [facility] Unless otherwise noted, all lab tests performed by: Division of Pathology and Laboratory Medicine [facility] [place] [address] * ABORh (03/22/2023 10:06 AM CDT) Pathologist [facility] ABORh. O POS CT MD [facility] Blood 03/22/2023 10:0 6 AM CDT 03/22/2023 11:41 AM CDT Ivy Dye Sy INSTRUCTIONAL AIDE BLOOD BANK SERGIO T ORDERABLES [facility] Unless otherwise noted, all lab tests performed by: Division of Pathology and Laboratory Medicine [facility] [place] [address] * (ABNORMAL) Differential (03/22/2023 10:06 AM CDT) [facility] Neutrophil % 74.9(H) 42.0 - 66.0 % [facility] Lymphocyte % 14.1(L) 24.0 - 44.0 % [facility] Monocyte % 8.8(H) 2.0 - 7.0 % [facility] Eosinophil % 1.2 1.0 - 4.0 % [facility] Basophil % 0.4 0.0 - 1.0 % [facility] IGRE % 0.6(H) 0.0 - 0.4 % [facility] Comment:IGRE % count include s Metamyelocytes, Myelocytes, and Promyelocytes. Neutrophil Abs 3.67 1.70 - 7.30 K/uL [facility] Lymphocyte Abs 0.69(L) 1.00 - 4.80 K/uL [facility] Monocyte Abs 0.43 0.08 - 0.70 K/uL [facility] Eosinophil Abs 0.06 0.04 - 0.40 K/uL [facility] Basophil Abs 0.02 0.00 - 0.10 K/uL [facility] IG Abs 0.03 0.00 - 0.04 K/uL [facility] Blood 03/22/2023 10:0 6 AM CDT 03/22/2023 10:29 AM CDT Ivy Dan INSTRUCTIONAL AIDE LAB BLOOD ORDE RABLES Performing Organization Address City/[facility]/ZIP Co de Phone Number [facility] Unless otherwise noted, all lab tests performed by: Division of Pathology and Laboratory Medicine [address] [place] [id number] * Antibody Screen (03/22/2023 10:06 AM CDT) ABSC. Negative ABSC [facility] Blood 03/22/2023 10:0 6 AM CDT 03/22/2023 11:41 AM CDT Ivy Dan INSTRUCTIONAL AIDE BLOOD BANK SERGIO T ORDERABLES Performing Organization Address [facility] Co de Phone Number [facility] Unless otherwise noted, all lab tests performed by: Division of Pathology and Laboratory Medicine [address] [place] [address] * BUN (03/22/2023 10:06 AM CDT) BUN 15 6 - 23 mg/dL [facility] Blood 03/22/2023 10:0 6 AM CDT 03/22/2023 10:48 AM CDT Ivy Dan INSTRUCTIONAL AIDE LAB BLOOD ORDE RABLES Performing Organization Address City/[facility]/ZIP Co de Phone Number [facility] Unless otherwise noted, all lab tests performed by: Division of Pathology and Laboratory Medicine [address] [place] [id number] * ALT (03/22/2023 10:06 AM CDT) ALT 26 <=41 U/L [facility] Blood 03/22/2023 10:0 6 AM CDT 03/22/2023 10:48 AM CDT Ivy Dan INSTRUCTIONAL AIDE LAB BLOOD ORDE RABLES Performing Organization Address City/[facility]/ZIP Co de Phone Number [facility] Unless otherwise noted, all lab tests performed by: Division of Pathology and Laboratory Medicine [address] [place] [address] [id number] * Aspartate Aminotransferase (03/22/2023 10:06 AM CDT) AST 16 <=40 U/L [facility] Blood 03/22/2023 10:0 6 AM CDT 03/22/2023 10:48 AM CDT Ivy Dan APRN LAB BLOOD ORDE ELIERJIM [facility] Unless otherwise noted, all lab tests performed by: Division of Pathology and Laboratory Medicine [address] [place] [address]476 * Total Protein (03/22/2023 10:06 AM CDT) Pathologist [facility] Total Protein 7.1 6.4 - 8.3 g/dL [facility] Blood 03/22/2023 10:0 6 AM CDT 03/22/2023 10:48 AM CDT Ivy Dan APRN LAB BLOOD ORDE ELIERJIM Performing Organization Address City/[facility]/ZIP Co de Phone Number [facility] Unless otherwise noted, all lab tests performed by: Division of Pathology and Laboratory Medicine [address] [place] [address] 34759 * Alkaline Phosphatase (03/22/2023 10:06 AM CDT) Alk Phos 66 40 - 129 U/L [facility] Blood 03/22/2023 10:0 6 AM CDT 03/22/2023 10:48 AM CDT Ivy Dan APRN LAB BLOOD ORDE МАРИЯ [facility] Unless otherwise noted, all lab tests performed by: Division of Pathology and Laboratory Medicine [address] [place] [address] * (ABNORMAL) Glucose Level (03/22/2023 10:06 AM CDT) Glucose Level 159(H) 70 - 99 mg/dL [facility] Comment: Effective 05/10/16, the glucose reference intervals have been updated based on [place] [employer] guidelines (Standards of Medical Care [...] CDT Ivy Dan APRN LAB BLOOD ORDE МАРИЯ Performing Organization Address City/[facility]/ZIP Co de Phone Number [facility] Unless otherwise noted, all lab tests performed by: Division of Pathology and Laboratory Medicine [address] [place] [phone] * Calcium Level (03/22/2023 10:06 AM CDT) Calcium Lvl 9.9 8.4 - 10.2 mg/dL [facility] Blood 03/22/2023 10:0 6 AM CDT 03/22/2023 10:48 AM CDT Ivy Dan APRN LAB BLOOD ORDE МАРИЯ [facility] Unless otherwise noted, all lab tests performed by: Division of Pathology and Laboratory Medicine [address] [place] [address] [phone] * Albumin Level (03/22/2023 10:06 AM CDT) Albumin Lvl 4.6 3.5 - 5.2 gm/dL [facility] Blood 03/22/2023 10:0 6 AM CDT 03/22/2023 10:48 AM CDT Ivy Dye Sy INSTRUCTIONAL AIDE LAB BLOOD ORDE МАРИЯ [facility] Unless otherwise noted, all lab tests performed by: Division of Pathology and Laboratory Medicine [address] [place] [address] * (ABNORMAL) Electrolyte Panel (03/22/2023 10:06 AM CDT) Sodium Lvl 141 136 - 145 mEq/L [facility] Potassium Lvl 5.2(H) 3.5 - 5.1 mEq/L [facility] Chloride 104 98 - 107 mEq/L [facility] CO2 28 22 - 29 mEq/L [facility] Anion Gap 9 4 - 14 mEq/L [facility] Blood 03/22/2023 10:0 6 AM CDT 03/22/2023 10:48 AM CDT Ivy Hardik Dan INSTRUCTIONAL AIDE LAB BLOOD ORDMilo HSIEH [facility] Unless otherwise noted, all lab tests performed by: Division of Pathology and Laboratory Medicine [address] [place] [phone] after 12/24/2022 Care Teams Analyst Programmer Relationship Specialty Start Date End Date Della Wayne MD PhD [address] [place] [address] [phone] PCP - General Lymphoma and Myeloma 08/02/22 Sivakumar Laura [address] [place] [phone] Dermatology 12/15/22 Nam Lozano MD [address] [place] [phone] Dermatology 12/15/22 Anny Carrasco MD [address] [place] [phone] Consulting Physician Endocrinology 04/06/23 Rc Ragsdale MD [address] [place] [address] [phone] Consulting Physician Dermatology 01/30/23
[2023-12-24 17:15] LABS: Absolute Eosinophils 0.1 K/uL (0-0.5); Absolute Lymphocytes (CBC) 0.7 K/uL (0.7-4.9); Absolute Monocytes 0.4 K/uL (0.1-1.3); Basophils % 0.5 % (0-1.3); Eosinophils % 1.5 % (0-4.4); Hematocrit 39.9 % (39.6-49.0); Hemoglobin 13.4 g/dL (13.6-17.9); Lymphocytes % 14.1 % (15.3-44.8); MCH 32.3 pg (27.0-35.0); MCHC 33.6 g/dL (32.0-36.0); MCV 96.2 fL (80-100); MPV 7.9 fL (7.6-11.3); Monocytes % 7.2 % (3.3-12.3); Neutrophils % 76.7 % (41.7-73.7); Nucleated Red Blood Cells % 0.1 % (0-0); Platelets 126 thou/uL (152-406); RBC Red Blood Cell Count 4.15 M/uL (4.33-5.43); Red Cell Distribution Width 16.8 % (12.1-15.2)
[2023-12-24] MEDS ORDERED: ONDANSETRON 4 MG/2 ML VIAL ONE (17:15)
[2023-12-24 17:43] LABS: Anion Gap 8.5 mEq/L (5.0-15.0); Potassium 4.5 mEq/L (3.5-5.1); Troponin High Sensitivity 8.5 pg/mL (<58.9)
--- NOTE | 2023-12-24 17:46 | RAD REPORT ---
EXAM DESCRIPTION: Taylor Single View12/24/2023 5:11 pm CLINICAL HISTORY: Chest pain COMPARISON: November 2023 FINDINGS: Chronic elevation the right hemidiaphragm. Lungs appear clear of acute infiltrate. Heart is normal size
--- NOTE | 2023-12-24 18:09 | ER ---
Nurse's Notes [facility] Name: Lynnette Lester Age: 68 yrs Sex: Male : 1955 Arrival Date: 12/24/2023 Time: 15:47 Bed 20 Private MD: Diagnosis: Unstable angina;Chest pain, unspecified Presentation: 12/23 16:06 Chief complaint: Patient states: I was just here for some pain in my chest and it was kd3 found that i had a mass and i was not having a heart attack but the pain is now feeling worse. Today i am feeling pain in the middle of my chest and my back. It feels tight and it usually lasts a couple of minutes. I had a stress test last and it was abnormal. The pain is easing up on its own. We are supposed to have an angiogram. Ebola Screen: No symptoms or risks identified at this time. Initial Sepsis Screen: Does the patient meet any 2 criteria? No. Patient's initial sepsis screen is negative. Does the patient have a suspected source of infection? No. Patient's initial sepsis screen is negative. Risk Assessment: Do you want to hurt yourself or someone else? Patient reports no desire to harm self or others. Onset of symptoms was December 24, 2023. 16:06 Method Of Arrival: Ambulatory kd3 16:11 Coronavirus screen: Vaccine status: Patient reports receiving the 2nd dose of the covid kd3 vaccine. 16:11 Acuity: JUVENAL 3 kd3 Triage Assessment: 16:10 General: Appears in no apparent distress. Behavior is calm, cooperative. Pain: kd3 Complains of pain in mid-sternal area Pain radiates to back. Cardiovascular: Patient's skin is warm and dry. Historical: - Allergies: 19:11 No Known Allergies; ph - PMHx: 16:10 diabetes mellitus; Gout; Gout; Hypertensive disorder; Hypertensive disorder; Pituitary kd3 mass; Hyperlipidemia; High Cholesterol; follicular lymphoma; - Immunization history:: Adult Immunizations up to date. - Social history:: Smoking status: Patient denies any tobacco usage or history of. - Family history:: not pertinent. - Hospitalizations: : The patient was recently seen at [facility]. Screenin:45 [facility] ED Fall Risk Assessment (Adult) History of falling in the last 3 months, ph including since admission No falls in past 3 months (0 pts) Confusion or Disorientation No (0 pts) Intoxicated or Sedated No (0 pts) Impaired Gait No (0 pts) Mobility Assist Device Used No (0 pt) Altered Elimination No (0 pt) Score/Fall Risk Level 0 - 2 = Low Risk Oriented to surroundings, Maintained a safe environment, Assessed \T\ reinforced patient's understanding of fall precautions, Provided non-skid footwear, Hourly rounding (assess needs \T\ fall precautionary measures) done. Abuse screen: Denies threats or abuse. Denies injuries from another. Nutritional screening: No deficits noted. Tuberculosis screening: No symptoms or risk factors identified. Assessment: 17:00 General: Appears in no apparent distress. comfortable, well groomed, Behavior is calm, ph cooperative, appropriate for age. Pain: Complains of pain in anterior aspect of right upper chest, anterior aspect of left upper chest and mid-sternal area Pain radiates to back Pain began 2-3 days ago. Neuro: Level of Consciousness is awake, alert, obeys commands, Oriented to person, place, time, situation. Cardiovascular: Reports chest pain, nausea, Denies palpitations, syncope, vomiting, Capillary refill < 3 seconds in bilateral fingers Patient's skin is warm and dry. Rhythm is regular. Respiratory: Airway is patent Respiratory effort is even, unlabored. GI: Reports nausea, Patient currently denies abdominal pain, vomiting. Musculoskeletal: Circulation, motion, and sensation intact. Range of motion: intact in all extremities. Vital Signs: 16:06 BP 126 / 79; Pulse 95; Resp 16; Temp 98; Pulse Ox 98% on R/A; kd3 17:00 BP 133 / 72; Pulse 74; Resp 18; Pulse Ox 98% on R/A; ph 18:00 BP 138 / 76; Pulse 78; Resp 16; Pulse Ox 97% ; ph 19:16 BP 117 / 66; Pulse 78; Resp 19; Temp 97.8; Pulse Ox 97% on R/A; ph Vitals: 19:16 Cardiac Rhythm Assessment Regular. ED Course: 15:48 Patient arrived in ED. ra3 16:00 Pako Warren MD is Attending Physician. rn 16:10 Arm band placed on right wrist. kd3 16:11 Triage completed. kd3 16:13 EKG done, by ED staff, reviewed by Pako Warren MD. kd3 17:10 Initial lab(s) drawn, by me, sent to lab. Inserted saline lock: 22 gauge in right ph antecubital area, using aseptic technique. Blood collected. Patient maintains SpO2 saturation greater than 95% on room air. 17:13 XRAY Chest (1 view) In Process Unspecified. EDMS 17:38 Corrina Oh, ROSA is Primary Nurse. ph 18:08 Mayito Peña MD is Hospitalizing Provider. rn 18:46 Patient has correct armband on for positive identification. Placed in gown. Bed in low ph position. Call light in reach. Side rails up X 1. Client placed on continuous cardiac and pulse oximetry monitoring. NIBP monitoring applied. Door closed. Noise minimized. Warm blanket given. 19:10 No provider procedures requiring assistance completed. ph 19:11 Patient admitted, IV remains in place. ph 23:43 Primary Nurse role handed off by Corrina Oh RN as6 23:55 Provided Education on: admission process. [id number] Administered Medications: 17:35 Drug: Ondansetron IVP 4 mg IVP once; over 2 minutes Route: IVP; Site: right antecubital;ph 19:10 Follow up: Response: No adverse reaction ph 18:42 Drug: Aspirin PO Chewable Tablet 324 mg PO once; 81 mg tablets x 4 Route: PO; ph 19:10 Follow up: Response: No adverse reaction ph Medication: 19:11 VIS not applicable for this client. ph Outcome: 18:08 Decision to Hospitalize by Provider. rn 19:11 Admitted to ER Hold. Please see [facility] for further documentation. ph 19:11 Condition: stable 19:11 Instructed on the need for admit, 03 00:50 Patient left the ED. [email or web address] Signatures: Dispatcher [employer] EDMS Pako Warren MD MD rn Hall, Patricia RN ROSA ph Arnaud Foley RN RN as6 Su Padilla RN RN kd3 Lupe Rincon RN RN km8 Alicia Guillory ra3 Corrections: (The following items were deleted from the chart) 12/23 19:17 18:00 BP 138 / 76; Pulse 68bpm; Resp 16bpm; Pulse Ox 97%; ph ph
--- NOTE | 2023-12-24 18:09 | EDPHYS ---
Physician Documentation [facility] Name: Lynnette Elder Age: 68 yrs Sex: Male : 1955 Arrival Date: 12/24/2023 Time: 15:47 Bed 20 Private MD: ED Physician Pako Warren HPI: 12/23 16:14 This 68 yrs old Male presents to ER via Ambulatory with complaints of Chest Pain. rn 16:14 The patient or guardian reports chest pain that is located primarily in the substernal rn area. Onset: at an unknown time. 16:14 The pain radiates to back. Associated signs and symptoms: Pertinent positives: nausea, rn Pertinent negatives: abdominal pain, cough, diaphoresis, shortness of breath, syncope, vomiting. The chest pain is described as a heaviness. Duration: The patient or guardian reports multiple episodes, that are intermittent. Modifying factors: The symptoms are alleviated by nothing. the symptoms are aggravated by exertion. Severity of pain: At its worst the pain was moderate in the emergency department the pain has improved. The patient has experienced similar episodes in the past. The patient has been recently been admitted at [facility]. Patient reports substernal chest pain that radiates to the back. Recent admission for identical pain, was discharged and followed up with Dr. Lewis, had outpatient stress test performed that was abnormal and was due for cardiac cath next Sunday. Patient reports increase in frequency of pain and length of time that he is in pain. Worse with exertion. No trauma. No shortness of breath. No cough or hemoptysis.. Historical: - Allergies: 19:11 No Known Allergies; ph - PMHx: 16:10 diabetes mellitus; Gout; Gout; Hypertensive disorder; Hypertensive disorder; Pituitary kd3 mass; Hyperlipidemia; High Cholesterol; follicular lymphoma; - Immunization history:: Adult Immunizations up to date. - Social history:: Smoking status: Patient denies any tobacco usage or history of. - Family history:: not pertinent. - Hospitalizations: : The patient was recently seen at [facility]. ROS: 16:14 Constitutional: Negative for fever, chills, and weight loss, Cardiovascular: Negative rn for palpitations, and edema, Respiratory: Negative for shortness of breath, cough, wheezing, and pleuritic chest pain, Abdomen/GI: Negative for abdominal pain, nausea, vomiting, diarrhea, and constipation, Back: Negative for injury : Negative for injury, bleeding, discharge, and swelling, MS/Extremity: Negative for injury and deformity, Skin: Negative for injury, rash, and discoloration, Neuro: Negative for headache, weakness, numbness, tingling, and seizure, Exam: 16:14 Constitutional: This is a well developed, well nourished patient who is awake, alert, rn and in no acute distress. Head/Face: Normocephalic, atraumatic. Cardiovascular: Regular rate and rhythm. No pulse deficits. Respiratory: No increased work of breathing, no retractions or nasal flaring. Abdomen/GI: Soft, non-tender MS/ Extremity: Pulses equal, no cyanosis. Neuro: Awake and alert, GCS 15 16:18 ECG was reviewed by the Attending Physician. rn Vital Signs: 16:06 BP 126 / 79; Pulse 95; Resp 16; Temp 98; Pulse Ox 98% on R/A; kd3 17:00 BP 133 / 72; Pulse 74; Resp 18; Pulse Ox 98% on R/A; ph 18:00 BP 138 / 76; Pulse 78; Resp 16; Pulse Ox 97% ; ph 19:16 BP 117 / 66; Pulse 78; Resp 19; Temp 97.8; Pulse Ox 97% on R/A; ph MDM: 16:00 Patient medically screened. rn 18:05 Differential diagnosis: acute myocardial infarction, acute pericarditis, coronary rn artery disease chest wall pain, costochondritis. 18:06 HEART Score: History: Highly Suspicious (2), ECG: Normal (0), Age: > or = 65 years (2), rn Risk Factors: 1 or 2 risk factors (1), Troponin: < or = 1 x Normal Limit (0), Total Score = 5. The patient was given aspirin in the Emergency Department. Data reviewed: vital signs, nurses notes, lab test result(s), EKG, radiologic studies, plain films, and as a result, I will admit patient. Consideration of Admission/Observation Patient was admitted/placed on observation. Escalation of care including admission/observation considered. Counseling: I had a detailed discussion with the patient and/or guardian regarding the historical points, exam findings, and any diagnostic results supporting the discharge/admit diagnosis, lab results, radiology results, the need for further work-up and treatment in the hospital. 12/23 16:12 Order name: Basic Metabolic Panel; Complete Time: 17:56 rn 12/23 16:12 Order name: CBC with Diff; Complete Time: 17:37 rn 12/23 16:12 Order name: NT PRO-BNP; Complete Time: 17:56 rn 12/23 16:12 Order name: Troponin HS; Complete Time: 17:56 rn 12/23 18:44 Order name: Urinalysis w/ reflexes [facility] 12/23 18:44 Order name: CBC with Automated Diff [facility] 12/23 18:44 Order name: CBC with Automated Diff [facility] 12/23 18:44 Order name: Comprehensive Metabolic Panel [facility] 12/23 18:44 Order name: Comprehensive Metabolic Panel [facility] 12/23 18:44 Order name: Lipid Profile [facility] 12/23 18:44 Order name: Lipid Profile [facility] 12/23 18:44 Order name: Magnesium [facility] 12/23 18:44 Order name: Magnesium [facility] 12/23 18:44 Order name: Phosphorus [facility] 12/23 18:44 Order name: Phosphorus [facility] 12/23 18:44 Order name: Troponin High Sensitivity [facility] 12/23 18:44 Order name: Troponin High Sensitivity [facility] 12/23 18:44 Order name: Troponin High Sensitivity [facility] 12/23 18:44 Order name: Troponin High Sensitivity [facility] 12/23 23:19 Order name: Glucose, Ancillary Testing [facility] 12/23 16:12 Order name: XRAY Chest (1 view); Complete Time: 17:56 rn 12/23 16:12 Order name: EKG; Complete Time: 16:12 rn 12/23 18:44 Order name: CONS Physician Consult [facility] 12/23 16:12 Order name: Cardiac monitoring; Complete Time: 17:55 rn 12/23 16:12 Order name: EKG - Nurse/Tech; Complete Time: 16:13 rn 12/23 16:12 Order name: IV Saline Lock; Complete Time: 17:55 rn 12/23 16:12 Order name: Labs collected and sent; Complete Time: 17:55 rn 12/23 16:12 Order name: O2 Per Protocol; Complete Time: 17:55 rn 12/23 16:12 Order name: O2 Sat Monitoring; Complete Time: 17:55 rn EC:18 Rate is 97 beats/min. Rhythm is regular. QRS [place] is Normal. MI interval is normal. QRS rn interval is normal. QT interval is normal. No Q waves. T waves are Normal. No ST changes noted. Clinical impression: Normal ECG. Interpreted by me. Reviewed by me. Administered Medications: 17:35 Drug: Ondansetron IVP 4 mg IVP once; over 2 minutes Route: IVP; Site: right antecubital;ph 19:10 Follow up: Response: No adverse reaction ph 18:42 Drug: Aspirin PO Chewable Tablet 324 mg PO once; 81 mg tablets x 4 Route: PO; ph 19:10 Follow up: Response: No adverse reaction ph Disposition Summary: 12/24/23 18:08 Hospitalization Ordered Notes: Provider: Mayito Peña rn Condition: Stable rn Problem: an ongoing problem rn Symptoms: have worsened rn Bed/Room Type: Standard rn Hospitalization Status: Inpatient Admission(12/24/23 18:08) rn Location: Telemetry/MedSurg (Inpatient)(12/24/23 23:17) Room Assignment: [facility](12/24/23 23:17) Diagnosis - Unstable angina rn - Chest pain, unspecified rn Forms: - Medication Reconciliation Form rn - SBAR form rn - Leadership Thank You Letter rn Signatures: Dispatcher [employer] Xochitl Blanco Kimberly RN Pako Macdonald MD MD rn Hall, Patricia RN Su Green ph D, RN RN kd3 Corrections: (The following items were deleted from the chart) 18:08 18:08 Observation rn rn 18:54 18:08 Telemetry/MedSurg (observation) pedro bd 18:54 18:08 rn bd 23:17 18:54 [facility] ER HOLD bd kl 23:17 18:54 ERHOLD- bd kl
[2023-12-24] MEDS ORDERED: ASPIRIN 81 MG CHEWABLE TABLET ONE (18:18)
--- NOTE | 2023-12-24 18:38 | P.HP ---
Certification for Inpatient Patient admitted to: Inpatient With expected LOS: >2 Midnights Patient will require the following post-hospital care: None Practitioner: I am a practitioner with admitting privileges, knowledge of patient current condition, hospital course, and medical plan of care. Services: Services provided to patient in accordance with Admission requirements found in Title 42 Section 412.3 of the Code of Federal Regulations Patient History Date of Service: 12/24/23 Reason for admission: Chest Pain History of Present Illness: 68 yrs old Male with past medical history of hypertension, hyperlipidemia, diabetes, follicular lymphoma, BPH who came to ER with Chest Pain. Pain is located substernally and radiating to back and is associated with nausea. Worse with minimal exertion. Denies any fever or chills. No trauma. Denies any diaphoresis. No previous history of CAD. No smoking history. Pain is sharp, i ntermittent, 6 out of 10 in severity at the time of interview. No modifying factors other than exercise. The patient has been recently been admitted here for similar substernal chest pain that radiates to the back. He was discharged and followed up with Dr. Lewis, had outpatient stress test performed that was abnormal and was due for cardiac cath next Sunday. Patient reports increase in frequency of pain and length of time that he is in pain. And was brought to ER Patient was assessed in the ER and was admitted for further management of unstable angina and possible LHC in AM Allergies No Known Allergies Allergy (Verified 06/28/23 11:30) Home medications list reviewed: Yes Home Medications: Allopurinol 300 mg PO DAILY 06/28/23 Aspirin [Aspirin EC 81 MG] 81 mg PO DAILY 06/28/23 Finasteride 5 mg PO DAILY 06/28/23 Olmesartan Medoxomil 20 mg PO DAILY 06/28/23 Rosuvastatin [Crestor*] 5 mg PO DAILY 06/28/23 Tamsulosin [Flomax*] 0.4 mg PO DAILY 06/28/23 Triamterene/Hydrochlorothiazid [Triamterene-Hctz 75-50 mg Tab] 1 each PO DAILY 06/28/23 Metformin ER [Glucophage ER*] 1,000 mg PO BID 12/09/23 terbinafine HCL [Terbinafine HCl] 250 mg PO DAILY 12/09/23 - Past Medical/Surgical History Diabetic: Yes Past Medical History: Reviewed- Non-Contributory -: Follicular lymphoma -: Hypertension -: Hyperlipidemia -: Gout -: BPH -: DM Past Surgical History: Reviewed- Non-Contributory -: Left hand surgery -: hernia Psychosocial/ Personal History: Lives at home with family - Social History Smoking Status: Never smoker Alcohol use: No CD- Drugs: No Caffeine use: Yes Review of Systems 10-point ROS is otherwise unremarkable Physical Examination - Vital Signs Temperature: 97.8 F Blood Pressure: 112/68 Pulse: 76 Respirations: 18 Pulse Ox (%): 98 - Physical Exam General: Alert, In no apparent distress, Oriented x3 HEENT: Atraumatic, Normocephalic, PERRLA Neck: Supple, JVD not distended Respiratory: Clear to auscultation bilaterally, Normal air movement Cardiovascular: No edema, Regular rate/rhythm, Normal S1 S2, No gallops, No murmurs Capillary refill: <2 Seconds Gastrointestinal: Soft and benign, W/out hepatosplenomegaly, No tenderness Musculoskeletal: No clubbing, No swelling Integumentary: No rashes, No breakdown Neurological: Normal speech, Normal strength at 5/5 x4 extr, Normal tone, Sensation intact, Cranial nerves 3-12 intact, Normal reflexes 2+ Lymphatics: No axilla or inguinal lymphadenopathy - Studies Laboratory Data (last 24 hrs) 12/24/23 12/24/23 17:00 17:00 WBC 5.20 Hgb 13.4 L Hct 39.9 Plt Count 126 L Sodium 138 Potassium 4.5 BUN 27 H Creatinine 1.23 Glucose 109 H Assessment and Plan - Problems (Diagnosis) (1) Unstable angina Current Visit: Yes Status: Acute Plan: Unstable angina Will trend cardiac enzymes Will monitor telemetry Started on aspirin and statin EKG did not show any acute changes sinus ST-T suggestive of ischemia Patient has chest pain Cardiology consult Patient had a recent stress test outpatient Stress test was positive as per the patient Posted for heart cath on next Sunday (2) Hyperlipidemia Current Visit: No Status: Chronic Plan: Continue statin Will get a lipid panel in the morning (3) Hypertension Current Visit: No Status: Chronic Plan: Continue home medications and titrate as needed Patient is borderline hypotensive Monitor closely (4) Diabetes Current Visit: Yes Status: Chronic Plan: Insulin sliding scale Accu-Chek before every meal and at bedtime Will hold metformin for now given possibility of dye injection injection in [facility] Discharge Plan: Home Plan to discharge in: 48 Hours - Advance Directives Does patient have a Living Will: No Does patient have a Durable POA for Healthcare: No - Code Status/Comfort Care Code Status: Full Code Time Spent Managing Pts Care (In Minutes): 54
[2023-12-24] MEDS ORDERED: ONDANSETRON 4 MG/2 ML VIAL IV PRN (18:39)
[2023-12-24] MEDS ORDERED: ACETAMINOPHEN 325 MG TABLET PO PRN (18:39)
[2023-12-24 20:22] VITALS: BMI 29.8
[2023-12-24] MEDS: INSULIN REGULAR (HUMAN) 100 UNIT/ML SQ SCH (23:09)
[2023-12-24] MEDS: ENOXAPARIN 40 MG/0.4 ML SQ SCH (23:11)
[2023-12-24] MEDS ORDERED: ENOXAPARIN 40 MG/0.4 ML SQ ONE (23:17)
[2023-12-25] MEDS: MORPHINE 2 MG/ML SYR IV PRN (01:44)
[2023-12-25 02:12] LABS: Specific Gravity 1.018 (1.005-1.030); Urine Bilirubin NEGATIVE (Negative); Urine Blood Negative (Negative); Urine Clarity Clear (Clear); Urine Color Light-Yellow (Yellow); Urine Glucose NEGATIVE (Negative); Urine Protein NEGATIVE (Negative); Urine Urobilinogen Normal (Normal)
[2023-12-25 08:02] LABS: Absolute Eosinophils 0.1 K/uL (0-0.5); Absolute Lymphocytes (CBC) 0.8 K/uL (0.7-4.9); Absolute Monocytes 0.4 K/uL (0.1-1.3); Absolute Neutrophil 2.5 K/uL (1.8-8.0); Basophils % 0.5 % (0-1.3); Eosinophils % 2.3 % (0-4.4); Hematocrit 37.3 % (39.6-49.0); Hemoglobin 12.9 g/dL (13.6-17.9); Lymphocytes % 20.7 % (15.3-44.8); MCHC 34.5 g/dL (32.0-36.0); MCV 95.7 fL (80-100); MPV 8.3 fL (7.6-11.3); Monocytes % 9.9 % (3.3-12.3); Neutrophils % 66.6 % (41.7-73.7); Nucleated Red Blood Cells % 0.1 % (0-0); Platelets 125 thou/uL (152-406); Red Cell Distribution Width 16.6 % (12.1-15.2)
[2023-12-25 08:04] LABS: Albumin/Globulin Ratio 1.4 (1.1-1.8); Anion Gap 9.3 mEq/L (5.0-15.0); Bilirubin Total 0.6 mg/dL (0.2-1.0); Globulin 2.9 g/dL (2.3-3.5); Magnesium 1.9 mg/dL (1.6-2.4); Phosphorus 3.4 mg/dL (2.5-4.9); Potassium 4.3 mEq/L (3.5-5.1); Protein, Total 6.9 g/dL (6.4-8.2)
--- NOTE | 2023-12-25 10:18 | P.PN ---
Date of Service: 12/25/23 Subjective: no pain/discomfort at rest since admission, hasn't moved around much to see if still has with exertion no new/worsening symptoms overnight awaiting cardio eval for possible cath ROS: 10 point ROS as noted above, otherwise negative Physical Exam: GEN: Alert, oriented, NAD HEENT: Normal conjunctiva, sclera anicteric, CV: Regular rate and rhythm, no edema Pulm: Nonlabored respirations on room air, clear bilaterally ABD: soft, nontender, nondistended Neuro: Normal speech, normal affect Problem List: Unstable Angina hx of follicular lymphoma Hyperlipidemia Hypertension BPH DM2 Unstable Angina reports sharp intermittent substernal chest pain that radiates to back. worsened with minimal exertion. Sees Dr. Lewis. Reports recent stress test earlier this month was positive. Prior to admission had heart cath scheduled for next week CXR (12/23): chronic elevation of right hemidiaphragm, otherwise negative troponins negative x3, monitor on telemetry continue aspirin, statin Cardiology consulted NPO for now until seen / eval by cardiology in event of possible LHC today hx of follicular lymphoma Patient reports hx of lymphoma. Sees Oncologist regularly Prior imagining from 12/09/23 noted [id number] soft tissue mass within posterior mediastinum posterior to descending thoracic aorta within lower chest extending to the diaphragm Continue supportive care. Hyperlipidemia Hypertension continue home meds as appropriate BPH continue home flomax DM2 Accuchecks, SSI VTE: Lovenox Code: Full Dispo: Home, ~1-2 days Pending cardiac recs, possible heart cath
[2023-12-25] MEDS: FINASTERIDE 5 MG TAB PO SCH (10:21)
[2023-12-25] MEDS: VALSARTAN 80 MG TAB PO SCH (10:21)
[2023-12-25] MEDS: ASPIRIN EC 81 MG TAB PO SCH (10:21)
[2023-12-25] MEDS: ROSUVASTATIN 5 MG TAB PO SCH (10:22)
[2023-12-25] MEDS: MAXZIDE (HCTZ 25/TRIAMTERENE 37.5MG) TAB PO SCH (10:23)
[2023-12-25] MEDS: TAMSULOSIN 0.4 MG SR CAP PO SCH (10:23)
[2023-12-25] MEDS: allopurinoL 300 MG TAB PO SCH (10:23)
--- NOTE | 2023-12-25 15:19 | P.CNS ---
Date of Consult: 12/25/23 Chief Complaint: Chest Pain History of Present Illness: patient with PMH of lymphoma presented to ED with wosening chest pain, pressure sensation, mainly happens with exertion but got worse yesterday, patient was seen in clinic earlier for same symptoms and had an abnormal stress test and he was scheduled for coronary angiogram. Allergies No Known Allergies Allergy (Verified 06/28/23 11:30) Home Medications: Allopurinol 300 mg PO DAILY 06/28/23 Aspirin [Aspirin EC 81 MG] 81 mg PO DAILY 06/28/23 Finasteride 5 mg PO DAILY 06/28/23 Olmesartan Medoxomil 20 mg PO DAILY 06/28/23 Rosuvastatin [Crestor*] 5 mg PO DAILY 06/28/23 Tamsulosin [Flomax*] 0.4 mg PO DAILY 06/28/23 Triamterene/Hydrochlorothiazid [Triamterene-Hctz 75-50 mg Tab] 1 each PO DAILY 06/28/23 Metformin ER [Glucophage ER*] 1,000 mg PO BID 12/09/23 terbinafine HCL [Terbinafine HCl] 250 mg PO DAILY 12/09/23 - Past Medical/Surgical History Diabetic: Yes -: Follicular lymphoma -: Hypertension -: Hyperlipidemia -: Gout -: BPH -: DM -: Left hand surgery -: hernia Psychosocial/ Personal History: Lives at home with family - Social History Alcohol use: No CD- Drugs: No Caffeine use: Yes Place of Residence: Home Review of Systems 10-point ROS is otherwise unremarkable Physical Examination Temp Pulse Resp BP Pulse Ox 98.2 F 88 16 149/75 H 97 12/25/23 12:00 12/25/23 12:00 12/25/23 12:00 12/25/23 12:00 12/25/23 12:00 General: Alert, Oriented x3 HEENT: Atraumatic Neck: Supple Respiratory: Clear to auscultation bilaterally Cardiovascular: No edema, Normal S1 S2 Gastrointestinal: Normal bowel sounds Laboratory Data (last 24 hrs) 12/24/23 12/24/23 17:00 17:00 WBC 5.20 Hgb 13.4 L Hct 39.9 Plt Count 126 L Sodium 138 Potassium 4.5 BUN 27 H Creatinine 1.23 Glucose 109 H - Problems (1) Unstable angina Current Visit: Yes Status: Acute Plan: patient with unstable angina and abnormal stress test will get coronary angiogram continue ASA 81 mg daily continue Crestor (2) Hyperlipidemia Current Visit: No Status: Chronic Plan: continue crestor. lipid panel.
[2023-12-26 04:14] LABS: Magnesium 2.1 mg/dL (1.6-2.4)
--- NOTE | 2023-12-26 11:00 | P.PN ---
Date of Service: 12/26/23 Subjective: NPO for heart cath today no new/worsening symptoms ambulating and voiding without issues felt some chest pain/pressure this morning but has since resolved afebrile ROS: 10 point ROS as noted above, otherwise negative Physical Exam: GEN: Alert, oriented, NAD HEENT: Normal conjunctiva, sclera anicteric, CV: Regular rate and rhythm, no edema Pulm: Nonlabored respirations on room air, clear bilaterally ABD: soft, nontender, nondistended Neuro: Normal speech, normal affect Problem List: Unstable Angina hx of follicular lymphoma Hyperlipidemia Hypertension BPH DM2 Unstable Angina reports sharp intermittent substernal chest pain that radiates to back. worsened with minimal exertion. Sees Dr. Lewis. Reports recent stress test earlier this month was positive. Prior to admission had heart cath scheduled for next week CXR (12/23): chronic elevation of right hemidiaphragm, otherwise negative troponins negative x3, monitor on telemetry continue aspirin, statin Cardiology consulted NPO for left heart cath today hx of follicular lymphoma Patient reports hx of lymphoma. Sees Oncologist regularly Prior imagining from 12/09/23 noted [id number] soft tissue mass within posterior mediastinum posterior to descending thoracic aorta within lower chest extending to the diaphragm Family reports recent video call follow up earlier this week and reports stable study comparatively to prior studies Continue supportive care. Hyperlipidemia Hypertension continue home meds as appropriate BPH continue home flomax DM2 Accuchecks, SSI VTE: Lovenox Code: Full Dispo: Home, anticipate later this evening after cath vs tomorrow pending heart cath timing / results
[2023-12-26] MEDS ORDERED: VERAPAMIL HCL 10 MG/4 ML VIAL IV ONE (11:36)
[2023-12-26] MEDS ORDERED: LIDOCAINE 1% 20 ML MDV ONE (11:36)
[2023-12-26] MEDS ORDERED: FENTANYL CITR 100 MCG/2 ML ONE (11:36)
[2023-12-26] MEDS ORDERED: HEPA 1000U/500MLS 2,000 UNIT/1,000 ML BAG IV ONE (11:36)
[2023-12-26] MEDS ORDERED: HEPARIN 10,000 UNIT/10 ML VIAL IV ONE (11:37)
[2023-12-26] MEDS ORDERED: TICAGRELOR 90 MG TABLET PO ONE (11:37)
[2023-12-26] MEDS ORDERED: HEPARIN 5000 UNIT/ML 1 ML VIAL ONE (11:37)
[2023-12-26] MEDS ORDERED: MIDAZOLAM HCL 2 MG/2 ML INJ ONE (11:37)
[2023-12-26] MEDS ORDERED: ATROPINE SULF 1 MG/10 ML SYR IV ONE (11:37)
[2023-12-26] MEDS ORDERED: ASPIRIN 325 MG TAB ONE (11:38)
[2023-12-26] MEDS ORDERED: CLOPIDOGREL 75 MG TABLET ONE (11:38)
[2023-12-26] MEDS ORDERED: NA CHLORIDE 0.9% 500 ML ONE (11:56)
[2023-12-26] MEDS ORDERED: REGADENOSON 0.4 MG/5 ML SYR IV ONE (12:33)
[2023-12-26 12:51] VITALS: TEMP 97.8
--- NOTE | 2023-12-26 13:46 | P.PN ---
Subjective Date of Service: 12/26/23 Chief Complaint: Chest Pain Subjective: No new changes Review of Systems 10-point ROS is otherwise unremarkable Physical Examination - Vital Signs Temperature: 97.8 F Blood Pressure: 118/57 Pulse: 80 Respirations: 18 Pulse Ox (%): 94 - Physical Exam General: Alert, Oriented x3 HEENT: Atraumatic Neck: Supple Respiratory: Clear to auscultation bilaterally Cardiovascular: No edema, Normal S1 S2 Gastrointestinal: Normal bowel sounds Assessment And Plan - Current Problems (Diagnosis) (1) Unstable angina Current Visit: Yes Status: Acute Plan: patient had a coronary angiogram done today that shows moderate CAD, invasive stress test done and it was negative. please start patient on Imdur 30 mg po daily continue ASA and Crestor. No further cardiac work up needed. (2) Hyperlipidemia Current Visit: No Status: Chronic Plan: continue crestor. lipid panel.
[2023-12-26 16:26] VITALS: BP 115/88; O2SAT 97
--- NOTE | 2023-12-26 17:25 | P.DS ---
Admission Date: 12/24/23 Discharge Date: 12/26/23 Disposition: ROUTINE DISCHARGE Discharge Condition: GOOD Reason for Admission: Chest Pain Consultations: Cardiology - Dr. Lewis Brief History of Present Illness: 68yo M, PMH: hypertension, hyperlipidemia, diabetes, follicular lymphoma, BPH Patient presented to the ED with Chest Pain. Pain is located substernally and radiating to back and is associated with nausea. Worse with minimal exertion. Denies any fever or chills. No trauma. Denies any diaphoresis. No previous history of CAD. No smoking history. Pain is sharp, intermittent, 6 out of 10 in severity at the time of interview. No modifying factors other than exercise.The patient has been recently been admitted here for similar substernal chest pain that radiates to the back. He was discharged and followed up with Dr. Lewis, had outpatient stress test performed that was abnormal and was due for cardiac cath next Sunday. Patient reports increase in frequency of pain and length of time that he is in pain. Hospital Course: Problem List: Unstable Angina hx of follicular lymphoma Hyperlipidemia Hypertension BPH DM2 Patient presented with intermittent chest pain radiating to back and reportedly had an irregular cardiac stress test recently. Troponins were negative. CXR noted chronic elevation of right hemidiaphragm, otherwise negative. Cardiology was consulted. Given recent positive stress test earlier this month and already having a heart cath scheduled for next week, patient was taken OR for heart catheterization which revealed moderate coronary artery disease. Cardiology recommended medical management and starting imdur 30mg daily for chest pain / angina. Patient was feeling better, chest pain improved, and was deemed stable for discharge home. Recommend follow up with cardiology in ~1-2 weeks. Of note, recent hospitalization prior to this one revealed a posterior thoracic mass seen on CT. Patient had a telemedicine visit with his oncologist while in the hospital on 12/24. The Oncologist and radiologist reviewed the imaging and compared to his prior CTs and stated this mass was unchanged / nothing new or bigger. He will follow up with his PCP and Oncologist as scheduled. Medications: Continue home meds as previously prescribed with addition of Isosorbide (Imdur) 30mg ER daily to help with angina / chest pain. Advised caution when starting imdur regarding hypotension / orthostatic hypotension. To monitor and follow up with PCP / Cardiology. Follow up: PCP 3-5 days Cardiology 1-2 weeks Physical Exam: GEN: Alert, oriented, NAD HEENT: Normal conjunctiva, sclera anicteric CV: Regular rate and rhythm, no edema Pulm: Nonlabored respirations on room air, clear bilaterally ABD: soft, nontender, nondistended Neuro: Normal speech, normal affect Vital Signs/Physical Exam: Temp Pulse Resp BP Pulse Ox 97.8 F 90 18 115/88 94 12/26/23 13:46 12/26/23 16:05 12/26/23 16:05 12/26/23 16:05 12/26/23 13:46 Laboratory Data at Discharge: WBC 3.80 thou/uL (4.3-10.9) L 12/25/23 07:01 Hgb 12.9 g/dL (13.6-17.9) L 12/25/23 07:01 Hct 37.3 % (39.6-49.0) L 12/25/23 07:01 Plt Count 125 thou/uL (152-406) L 12/25/23 07:01 Sodium 138 mEq/L (136-145) 12/26/23 03:34 Potassium 4.0 mEq/L (3.5-5.1) 12/26/23 03:34 BUN 31 mg/dL (7-18) H 12/26/23 03:34 Creatinine 1.21 mg/dL (0.70-1.30) 12/26/23 03:34 Glucose 129 mg/dL (74-106) H 12/26/23 03:34 Phosphorus 3.4 mg/dL (2.5-4.9) 12/25/23 07:01 Magnesium 2.1 mg/dL (1.6-2.4) 12/26/23 03:34 Total Bilirubin 0.6 mg/dL (0.2-1.0) 12/25/23 07:01 AST 19 U/L (15-37) 12/25/23 07:01 ALT 34 U/L (16-61) 12/25/23 07:01 Alkaline Phosphatase 53 U/L (45-117) 12/25/23 07:01 Triglycerides 179 mg/dL (<150) H 12/25/23 07:01 Cholesterol 98 mg/dL (<200) 12/25/23 07:01 HDL Cholesterol 31 mg/dL (40-60) L 12/25/23 07:01 Cholesterol/HDL Ratio 3.16 12/25/23 07:01 Home Medications: Allopurinol 300 mg PO DAILY 06/28/23 Aspirin [Aspirin EC 81 MG] 81 mg PO DAILY 06/28/23 Finasteride 5 mg PO DAILY 06/28/23 Olmesartan Medoxomil 20 mg PO DAILY 06/28/23 Rosuvastatin [Crestor*] 5 mg PO DAILY 06/28/23 Tamsulosin [Flomax*] 0.4 mg PO DAILY 06/28/23 Triamterene/Hydrochlorothiazid [Triamterene-Hctz 75-50 mg Tab] 1 each PO DAILY 06/28/23 Metformin ER [Glucophage ER*] 1,000 mg PO BID 12/09/23 terbinafine HCL [Terbinafine HCl] 250 mg PO DAILY 12/09/23 Isosorbide Mononitrate [Isosorbide Mononitrate ER] 30 mg PO DAILY 30 Days #30 tab 12/26/23 New Medications: Isosorbide Mononitrate [Isosorbide Mononitrate ER] 30 mg PO DAILY 30 Days #30 tab Physician Discharge Instructions: Patient presented with intermittent chest pain radiating to back and reportedly had an irregular cardiac stress test recently. Troponins were negative. CXR noted chronic elevation of right hemidiaphragm, otherwise negative. Cardiology was consulted. Given recent positive stress test earlier this month and already having a heart cath scheduled for next week, patient was taken OR for heart catheterization which revealed moderate coronary artery disease. Cardiology recommended medical management and starting imdur 30mg daily for chest pain / angina. Patient was feeling better, chest pain improved, and was deemed stable for discharge home. Recommend follow up with cardiology in ~1-2 weeks. Of note, recent hospitalization prior to this one revealed a posterior thoracic mass seen on CT. Patient had a telemedicine visit with his oncologist while in the hospital on 12/24. The Oncologist and radiologist reviewed the imaging and compared to his prior CTs and stated this mass was unchanged / nothing new or bigger. He will follow up with his PCP and Oncologist as scheduled. Medications: Continue home meds as previously prescribed with addition of Isosorbide (Imdur) 30mg ER daily to help with angina / chest pain. Advised caution when starting imdur regarding hypotension / orthostatic hypotension. To monitor and follow up with PCP / Cardiology. Follow up: PCP 3-5 days Cardiology 1-2 weeks Followup: Chandler Ambrosio MD [ACTIVE - CAN ADMIT] - 1-2 Weeks (Call for appointment) Robert Arrieta MD [Primary Care Provider] - (Follow up in 3-5 days. Call for appointment) Time spent managing pt's care (in minutes): 45
== END 2023-12-26 19:22 | disposition home or self-care (01) | DRG 287 ==
LOC: ER 15:47 → ERHOLD 18:39 → 4TH 23:34
PROVIDERS: ADMIT Internal Medicine; ATTEND Hospitalist
PROC: 4A023N7 Measurement of Cardiac Sampling and Pressure, Left Heart, Percutaneous Approach (ICD-10-PCS; principal; 2023-12-26)
PROC: B2111ZZ Fluoroscopy of Multiple Coronary Arteries using Low Osmolar Contrast (ICD-10-PCS; 2023-12-26)
DX: I25.110 Atherosclerotic heart disease of native coronary artery with unstable angina pectoris (principal); C82.90 Follicular lymphoma, unspecified, unspecified site; E11.9 Type 2 diabetes mellitus without complications; E78.00 Pure hypercholesterolemia, unspecified; I10 Essential (primary) hypertension; I95.1 Orthostatic hypotension; M10.9 Gout, unspecified; N40.0 Benign prostatic hyperplasia without lower urinary tract symptoms; Z79.82 Long term (current) use of aspirin; Z79.84 Long term (current) use of oral hypoglycemic drugs; Z79.899 Other long term (current) drug therapy
CPT/HCPCS: 36415; 71045; 76937; 80048; 80053; 80061; 81003; 82947; 83735; 83880; 84100; 84484; 85025; 93005; 93458; 93571; 94760; 96374; 99152; 99153; 99285; C1769; C1893; J0461; J1644; J1650; J2001; J2250; J2270; J2405; J2785; J3010; J7040; Q9967